=== PATIENT | female | born 1950 | race Caucasian/White ===

== ENCOUNTER 2021-09-18 10:38 | Inpatient (IN) ==
[2021-09-18] MEDS ORDERED: IOPAMIDOL 100 ML BOTTLE IV ONE (10:39)
--- NOTE | 2021-09-18 10:49 | Emergency Department Note ---
HPI General Chief complaint: Altered Mental Status Stated complaint: Stroke symptoms Time Seen by Provider: 09/18/21 10:49 Source: patient, family and EMS Mode of arrival: EMS Limitations: altered mental status History of Present Illness HPI Narrative: 71-year-old female with no past medical history presenting with altered mental status. Caregiver went over today to help the patient take a bath and found her to be confused, incoherent, and with slurred speech so EMS was called. Last seen normal was yesterday around 3 PM when the caregiver stopped in to see her. Patient lives at home with her but caregiver comes by a few times weekly. Patient reportedly is bedbound and needs assistance for most ADLs. Caregiver is concerned that her is not able to take care of her. There is also concern that patient has been drinking alcohol. Patient reportedly has been more confused and not herself over the last week. Patient reportedly has had some falls over the last month resulting in a right patellar fracture and dislocation, left shoulder rotator cuff injury, and right rotator cuff injury. Patient is a poor historian and is alert and oriented x2. Patient endorses pain in her shoulders and her right knee. She is unable to tell me if she has had any recent falls. Not on anticoagulation. Patient denies chest pain or abdominal pain. Patient reportedly has decubitus ulcers as well. Related Data Allergies Allergy/AdvReac Type Severity Reaction Status Date / Time No Known Drug Allergies Allergy Verified 09/18/21 10:40 Review of Systems ROS ROS Narrative: Narrative: Limitations: ROS unobtainable due to patients medical condition [facility] Narrative Patient History Narrative: Narrative: Medical/Surgical/Family History All Active Problems (Updated 09/18/21 @ 14:09 by Jeffrey Huddleston MD) Alcoholic intoxication (Acute) Urinary tract infection (Acute) Decubitus ulcer (Acute) Social History Smoking Status: Never smoker Exam Narrative Narrative: Narrative: General Limitations: altered mental status General appearance: Present alert and other (Appears intoxicated with mild dysarthria) Head Head: Present atraumatic and normocephalic Eye Eye: Present normal appearance, PERRL and EOMI; Absent scleral icterus, conjunctival injection or nystagmus ENT ENT: Present normal oropharynx and mucous membranes moist Neck Neck: Present normal inspection, full ROM and trachea midline; Absent meningismus or lymphadenopathy Chest Chest: Present symmetric chest wall rise Respiratory Respiratory: Present normal lung sounds bilaterally; Absent respiratory distress, wheezes, stridor, accessory muscle use or prolonged expiratory phase Cardiovascular Cardiovascular: Present regular rate and normal rhythm; Absent systolic murmur or diastolic murmur Adbominal Abdominal: Present soft; Absent distention, tenderness, guarding, rebound, rigidity, organomegaly or mass Extremities Extremities: Present normal inspection; Absent pretibial edema Expanded Upper Extremity Shoulder: Present other (Limited range of motion and tenderness over the right and left shoulders.) Vascular: Normal capillary refill and radial pulse Back Back: Present other (Multiple stage II decubitus ulcers present without purulent drainage or underlying abscess) Neurological Neurological: Present alert, CN II-XII intact and other (Oriented x2); Absent oriented X3 Expanded Neurological Patient oriented to: Present person and place Speech: Present slurred and dysarthria; Absent expressive aphasia CRANIAL NERVES: EOM function (II, III, IV, ): Normal, facial sensation (V): Normal, facial palsy (VII): Normal, gag reflex (IX): Normal, spinal accessory function (XI): Normal and tongue deviation (XII): Normal CEREBELLAR FUNCTION: finger to nose: Normal CEREBELLAR FUNCTION: other (Unable to ambulate) Motor strength - LUE: 5/5 Motor strength - RUE: 4/5 Motor strength - LLE: 5/5 Motor strength - RLE: 4/5 UPPER MOTOR NEURON EXAM: blessing neglect: Normal, pronator drift: Normal and sensory extinction: Normal SENSORY EXAM UPPER EXTREMITY: Normal: light touch SENSORY EXAM LOWER EXTREMITY: Normal: light touch Coma Scale Eye Opening: Spontaneous Coma Scale Motor Response: Obeys Commands Coma Scale Verbal Response: Confused Coma Scale Total: 14 Psychiatric Psychiatric: Present other (Mildly confused and occasionally making inappropriate comments) Skin Skin: Present warm (WNL) and dry Course Consultations Consultation #1: Dr. Nova, telestroke neurologist Time: 11:20 Consultation #2: Dr. Duffy, hospitalist Time: 16:15 Vital Signs Vital signs: Vital Signs Temperature 97.7 F 09/18/21 10:40 Pulse Rate 111 H 09/18/21 10:40 Respiratory Rate 18 09/18/21 10:40 Blood Pressure 129/69 09/18/21 10:40 Pulse Oximetry (%) 97 09/18/21 10:40 Temperature 97.7 F 09/18/21 10:40 Pulse Rate 113 H 09/18/21 16:01 Respiratory Rate 16 09/18/21 16:01 Blood Pressure 102/63 09/18/21 16:01 Pulse Oximetry (%) 95 09/18/21 16:01 [facility] MDM Narrative Medical decision making narrative: 71-year-old female presenting with altered mental status. She is mildly tachycardic but vital signs are otherwise normal. Her NIH stroke scale is 6 given her mild weakness of the right arm, right leg, dysarthria, and confusion. Her right arm and leg weakness however may be secondary to her prior injuries that limit her strength and range of motion. There is concern for other etiologies besides acute CVA including intoxication or infection. CT brain without contrast shows no acute findings. EKG with no ischemic changes. I spoke with Dr. Nova, telestroke neurologist, who will review her CTA findings. She is outside the window for thrombolytics as her last known normal was 3 PM yesterday. Will obtain labs, further imaging, UA, urine drug screen, and reevaluate. CTA of the head and neck show no acute occlusions or stenosis. Chest x-ray is normal. Labs and UA are pending. Labs notable for an elevated lactic acid to 2.9 and an alcohol level of 417. UA is consistent with UTI. Normal saline bolus and IV Rocephin ordered. Blood cultures ordered as well. Plan to admit for UTI and intoxication. Patient discussed with Dr. Duffy who will admit to the hospital. Lab Data Lab results reviewed: Yes I reviewed the patient's lab results. Result diagrams: 09/18/21 11:15 09/18/21 11:15 Labs: Lab Results 09/18/21 09/18/21 09/18/21 Range/Units 11:15 11:15 11:15 WBC 10.7 (4.5-11.0) K/mcL RBC 4.17 (3.59-5.38) M/mcL Hgb 13.2 (11.2-15.7) g/dL Hct 40.3 (34.1-44.9) % MCV 96.6 (80.0-100.0) fL MCH 31.7 (26.0-34.0) pg MCHC 32.8 (31.0-36.0) g/dL RDW 13.5 (11.5-14.5) % Plt Count 373 (140-440) K/mcL MPV 10.1 (7.4-10.4) fL Neut % (Auto) 61.6 (38.0-78.0) % Lymph % (Auto) 29.7 (15.5-49.0) % [place] % (Auto) 5.8 (1.0-12.0) % Eos % (Auto) 2.1 (0.0-7.0) % Baso % (Auto) 0.8 (0.0-2.0) % Lymph # (Auto) 3.17 (1.50-4.80) K/mcL [place] # (Auto) 0.62 (0.10-0.90) K/mcL Eos # (Auto) 0.22 (0.00-0.70) K/mcL Baso # (Auto) 0.09 (0.00-0.30) K/mcL Absolute Neutrophils 6.56 (1.80-8.00) K/mcL POC PT 13.0 (11.9-14.5) sec PT TNP POC INR 1.1 (0.8-1.2) INR TNP APTT TNP VBG Lactic Acid (0.5-2.0) mmol/L Sodium 137 (133-145) mmol/L Potassium 4.2 (3.3-5.1) mmol/L Chloride 101 (96-108) mmol/L Carbon Dioxide 17 L (22-30) mmol/L Anion Gap 19.0 H (8.0-16.0) BUN 25 H (8-23) mg/dL Creatinine 0.5 L (0.6-1.1) mg/dL POC Creatinine 0.8 (0.6-1.2) mg/dL GFR Calculation 98 Glucose 103 (70-105) mg/dL Calcium 8.8 (8.6-10.4) mg/dL Total Bilirubin 0.3 (0.1-1.0) mg/dL AST 35 H (<32) U/L ALT 21 (<40) U/L Alkaline Phosphatase 81 (39-117) U/L Troponin T (<0.03) ng/mL Total Protein 6.7 (5.9-8.4) gm/dL Albumin 3.7 (3.2-5.2) gm/dL Globulin 3.0 (2.2-3.7) gm/dL Albumin/Globulin Ratio 1.2 (1.0-2.3) Urine Color Urine Appearance (Clear) Urine pH (5.0-9.0) Ur Specific [place] (1.000-1.035) Urine Protein (Negative) mg/dL Urine Glucose (UA) (Negative) mg/dL Urine Ketones (Negative) mg/dL Urine Occult Blood (Negative) torrey/mcL Urine Nitrate (Negative) Urine Bilirubin (Negative) mg/dL Urine Urobilinogen mg/dL Ur Leukocyte Esterase (Negative) /uL Urine RBC (0-3) /hpf Urine WBC (0-4) /hpf Ur Squamous Epith Cells (0-4) /hpf Amorphous Crystals (None) /hpf Urine Bacteria (0) /hpf Ur Culture Indicated? Urine Opiates Screen Ur Opiates Confirm Ur Oxycodone Screen Urine Methadone Screen Ur Methadone Confirm Ur Barbiturates Screen Ur Barbiturate Confirm Ur Phencyclidine Scrn Urine PCP Confirm Ur Amphetamines Screen U Amphetamines Confirm U Benzodiazepines Scrn U Benzodiazepine Confm Urine Cocaine Screen Urine Cocaine Confirm U Cannabinoids Confirm U Marijuana (THC) Screen Ethyl Alcohol (<0.010) gm/dL 09/18/21 09/18/21 09/18/21 Range/Units 11:15 11:40 11:40 WBC (4.5-11.0) K/mcL RBC (3.59-5.38) M/mcL Hgb (11.2-15.7) g/dL Hct (34.1-44.9) % MCV (80.0-100.0) fL MCH (26.0-34.0) pg MCHC (31.0-36.0) g/dL RDW (11.5-14.5) % Plt Count (140-440) K/mcL MPV (7.4-10.4) fL Neut % (Auto) (38.0-78.0) % Lymph % (Auto) (15.5-49.0) % [place] % (Auto) (1.0-12.0) % Eos % (Auto) (0.0-7.0) % Baso % (Auto) (0.0-2.0) % Lymph # (Auto) (1.50-4.80) K/mcL [place] # (Auto) (0.10-0.90) K/mcL Eos # (Auto) (0.00-0.70) K/mcL Baso # (Auto) (0.00-0.30) K/mcL Absolute Neutrophils (1.80-8.00) K/mcL POC PT (11.9-14.5) sec PT POC INR (0.8-1.2) INR APTT VBG Lactic Acid 2.9 H (0.5-2.0) mmol/L Sodium (133-145) mmol/L Potassium (3.3-5.1) mmol/L Chloride (96-108) mmol/L Carbon Dioxide (22-30) mmol/L Anion Gap (8.0-16.0) BUN (8-23) mg/dL Creatinine (0.6-1.1) mg/dL POC Creatinine (0.6-1.2) mg/dL GFR Calculation Glucose (70-105) mg/dL Calcium (8.6-10.4) mg/dL Total Bilirubin (0.1-1.0) mg/dL AST (<32) U/L ALT (<40) U/L Alkaline Phosphatase (39-117) U/L Troponin T < 0.01 (<0.03) ng/mL Total Protein (5.9-8.4) gm/dL Albumin (3.2-5.2) gm/dL Globulin (2.2-3.7) gm/dL Albumin/Globulin Ratio (1.0-2.3) Urine Color Urine Appearance (Clear) Urine pH (5.0-9.0) Ur Specific [place] (1.000-1.035) Urine Protein (Negative) mg/dL Urine Glucose (UA) (Negative) mg/dL Urine Ketones (Negative) mg/dL Urine Occult Blood (Negative) torrey/mcL Urine Nitrate (Negative) Urine Bilirubin (Negative) mg/dL Urine Urobilinogen mg/dL Ur Leukocyte Esterase (Negative) /uL Urine RBC (0-3) /hpf Urine WBC (0-4) /hpf Ur Squamous Epith Cells (0-4) /hpf Amorphous Crystals (None) /hpf Urine Bacteria (0) /hpf Ur Culture Indicated? Urine Opiates Screen Ur Opiates Confirm Ur Oxycodone Screen Urine Methadone Screen Ur Methadone Confirm Ur Barbiturates Screen Ur Barbiturate Confirm Ur Phencyclidine Scrn Urine PCP Confirm Ur Amphetamines Screen U Amphetamines Confirm U Benzodiazepines Scrn U Benzodiazepine Confm Urine Cocaine Screen Urine Cocaine Confirm U Cannabinoids Confirm U Marijuana (THC) Screen Ethyl Alcohol 0.417 H (<0.010) gm/dL 09/18/21 09/18/21 Range/Units 11:51 11:51 WBC (4.5-11.0) K/mcL RBC (3.59-5.38) M/mcL Hgb (11.2-15.7) g/dL Hct (34.1-44.9) % MCV (80.0-100.0) fL MCH (26.0-34.0) pg MCHC (31.0-36.0) g/dL RDW (11.5-14.5) % Plt Count (140-440) K/mcL MPV (7.4-10.4) fL Neut % (Auto) (38.0-78.0) % Lymph % (Auto) (15.5-49.0) % [place] % (Auto) (1.0-12.0) % Eos % (Auto) (0.0-7.0) % Baso % (Auto) (0.0-2.0) % Lymph # (Auto) (1.50-4.80) K/mcL [place] # (Auto) (0.10-0.90) K/mcL Eos # (Auto) (0.00-0.70) K/mcL Baso # (Auto) (0.00-0.30) K/mcL Absolute Neutrophils (1.80-8.00) K/mcL POC PT (11.9-14.5) sec PT POC INR (0.8-1.2) INR APTT VBG Lactic Acid (0.5-2.0) mmol/L Sodium (133-145) mmol/L Potassium (3.3-5.1) mmol/L Chloride (96-108) mmol/L Carbon Dioxide (22-30) mmol/L Anion Gap (8.0-16.0) BUN (8-23) mg/dL Creatinine (0.6-1.1) mg/dL POC Creatinine (0.6-1.2) mg/dL GFR Calculation Glucose (70-105) mg/dL Calcium (8.6-10.4) mg/dL Total Bilirubin (0.1-1.0) mg/dL AST (<32) U/L ALT (<40) U/L Alkaline Phosphatase (39-117) U/L Troponin T (<0.03) ng/mL Total Protein (5.9-8.4) gm/dL Albumin (3.2-5.2) gm/dL Globulin (2.2-3.7) gm/dL Albumin/Globulin Ratio (1.0-2.3) Urine Color Yellow Urine Appearance Turbid A (Clear) Urine pH >= 9.0 (5.0-9.0) Ur Specific [place] 1.015 (1.000-1.035) Urine Protein >=300 mg/dl A (Negative) mg/dL Urine Glucose (UA) Negative (Negative) mg/dL Urine Ketones Negative (Negative) mg/dL Urine Occult Blood Large A (Negative) torrey/mcL Urine Nitrate Negative (Negative) Urine Bilirubin Negative (Negative) mg/dL Urine Urobilinogen Normal mg/dL Ur Leukocyte Esterase Large A (Negative) /uL Urine RBC 74 H (0-3) /hpf Urine WBC 42 H (0-4) /hpf Ur Squamous Epith Cells < 1 (0-4) /hpf Amorphous Crystals Few A (None) /hpf Urine Bacteria None (0) /hpf Ur Culture Indicated? yes Urine Opiates Screen None detected Ur Opiates Confirm TNP Ur Oxycodone Screen None detected Urine Methadone Screen None detected Ur Methadone Confirm TNP Ur Barbiturates Screen None detected Ur Barbiturate Confirm TNP Ur Phencyclidine Scrn None detected Urine PCP Confirm TNP Ur Amphetamines Screen None detected U Amphetamines Confirm TNP U Benzodiazepines Scrn None detected U Benzodiazepine Confm TNP Urine Cocaine Screen None detected Urine Cocaine Confirm TNP U Cannabinoids Confirm TNP U Marijuana (THC) Screen None detected Ethyl Alcohol (<0.010) gm/dL ED POC Tests ED POC Tests: CONSTANTIN - SARS Antigen Negative Radiology Data Radiology results reviewed: Yes I reviewed the patient's radiology results. Radiology results narrative: Ordering Physician:Jeffrey Huddleston M.D. Date of Service:09/18/21 Procedure(s):CT head/brain wo con CLINICAL INFORMATION: Code stroke COMPARISON: None. TECHNIQUE: 2.5 mm helical slices were obtained in the skull base to vertex. Following reconstruction, axial reformatted images were reviewed at bone and parenchymal windows. The exam was performed using radiation dose optimization techniques including, but not limited to, automated exposure control, adjustment of the mA and/or kV according to patient size and use of iterative reconstruction technique. FINDINGS: The ventricles, sulci, fissures, and cisterns are symmetrically enlarged compatible with moderate age-related atrophy. No extra-axial fluid collections are identified. Mild patchy chronic ischemic changes, in the deep cerebral white matter, are expected for age. There is no hemorrhage, mass effect, or edema. Bone windows show no osseous abnormality. IMPRESSION: Moderate atrophy and chronic ischemic changes in the deep cerebral white matter-expected for age. No acute findings Interpreted and Authenticated by: Horacio Rushing 09/18/21 Ordering Physician:Jeffrey Huddleston M.D. Date of Service:09/18/21 Procedure(s):CT angio head CLINICAL INFORMATION: Code stroke COMPARISON: None. TECHNIQUE: 80 cc of Isovue-370 were injected intravenously , and using SmartPrep to maximize cerebral arterial opacification, 0.625 mm helical slices were obtained from the skull base through the cerebral vertex. Following reconstruction , sagittal, coronal and axial reformatted images were processed and reviewed at multiple windows and levels. 3D volume rendered and MIP images were acquired at a independent workstation. The exam was performed using radiation dose optimization techniques including, but not limited to, automated exposure control, adjustment of the mA and/or kV according to patient size and use of iterative reconstruction technique. FINDINGS: The intracranial internal carotid, vertebral, basilar, anterior, middle and posterior cerebral arteries and their branches are well-opacified and normal in contour and caliber without significant disc or occlusion. There is a small AVM in the perifalcine left parietal lobe near vertex. Superficial/deep cerebral veins and deep venous sinuses are widely patent IMPRESSION: Cerebral arteries are widely patent no evidence of significant stenosis or occlusion. 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 There is no hemorrhage or other complication related to the AVM. Interpreted and Authenticated by: Horacio Rushing 09/18/21 Ordering Physician:Jeffrey Huddleston M.D. Date of Service:09/18/21 Procedure(s):CT angio neck CLINICAL INFORMATION: Code stroke COMPARISON: None. TECHNIQUE: 80 cc of Isovue-300 were injected intravenously followed by 40 cc of normal saline flush. Using SmartPrep, 0.625 helical slices were obtained from the thoracic aortic arch through the [place] of [place]. Following reconstruction, 2.5 mm sagittal, coronal and axial reformatted images were processed. MIPS , 3-D volume rendering and CPR images were also constructed. The exam was performed using radiation dose optimization techniques including, but not limited to, automated exposure control, adjustment of the mA and/or kV according to patient size and use of iterative reconstruction technique. FINDINGS: The thoracic aortic arch is normal diameter with minimal intimal thickening and conventional aortic branching. The brachiocephalic, both subclavian, both common, internal and external carotid and both vertebral arteries are widely patent without significant abnormality. No soft tissue abnormality. IMPRESSION: Normal exam At C4-5 and C5-6 broad disc protrusions result in moderate central canal bilateral IV foraminal narrowing impinging the exiting C5 and C6 nerve roots. Interpreted and Authenticated by: Horacio Rushing 09/18/21 Ordering Physician:Jeffrey Huddleston M.D. Date of Service:09/18/21 Procedure(s):XR chest 1V portable CLINICAL INFORMATION: Code stroke COMPARISON: None. TECHNIQUE: Portable FINDINGS: The heart size, mediastinum and pulmonary vessels are unremarkable. The lungs are clear. There are no effusions. The bones and soft tissues are within normal limits. IMPRESSION: Normal chest. Interpreted and Authenticated by: Horacio Rushing 09/18/21 EKG Data EKG #1: EKG attestation: Yes I reviewed and interpreted this EKG. and Yes There are no EKG findings of acute coronary syndrome EKG results narrative: Sinus tachycardia at [address] elevation or depression. Interpretation: no acute changes Discharge Plan Patient/Caregiver Discharge Instructions Pt seen by YARROW GATHERER/PA only: No Clinical Impression: Alcoholic intoxication, Urinary tract infection, Decubitus ulcer Patient Disposition: Xfer As Inpt ([facility]) Follow up with: Reece Galvez DO [Primary Care Provider] -
--- NOTE | 2021-09-18 11:04 | Cat Scan Report ---
CLINICAL INFORMATION: Code stroke COMPARISON: None. TECHNIQUE: 2.5 mm helical slices were obtained in the skull base to vertex. Following reconstruction, axial reformatted images were reviewed at bone and parenchymal windows. The exam was performed using radiation dose optimization techniques including, but not limited to, automated exposure control, adjustment of the mA and/or kV according to patient size and use of iterative reconstruction technique. FINDINGS: The ventricles, sulci, fissures, and cisterns are symmetrically enlarged compatible with moderate age-related atrophy. No extra-axial fluid collections are identified. Mild patchy chronic ischemic changes, in the deep cerebral white matter, are expected for age. There is no hemorrhage, mass effect, or edema. Bone windows show no osseous abnormality. IMPRESSION: Moderate atrophy and chronic ischemic changes in the deep cerebral white matter-expected for age. No acute findings Interpreted and Authenticated by: Horacio Rushing 09/18/21
[2021-09-18 11:22] LABS: POC Creatinine 0.8 mg/dL (0.6-1.2)
[2021-09-18 11:23] LABS: POC INR 1.1 (0.8-1.2)
--- NOTE | 2021-09-18 11:44 | EKG ---
[facility] Test Date: 2021-09-18 Pat Name: Philly Magallanes Department: ED Room: Gender: Female [employer] Supervisor: NICOLAS : 1950 Requested By: Jeffrey Huddleston Order Number: [id number] Reading MD: Rah Leong D.O. Measurements Intervals [place] Rate: 107 P: -41 FL: 129 QRS: 55 QRSD: 81 T: 59 QT: 322 QTc: 430 Interpretive Statements SINUS OR ECTOPIC ATRIAL TACHYCARDIA Low voltage, precordial leads Electronically Signed On 09-18-2021 11:44:24 PST by Rah Leong D.O. /store/M0/[id number]
[2021-09-18 11:55] LABS: Basophils # (Auto) 0.09 K/mcL (0.00-0.30); Basophils % (Auto) 0.8 % (0.0-2.0); Eosinophils # (Auto) 0.22 K/mcL (0.00-0.70); Eosinophils % (Auto) 2.1 % (0.0-7.0); Hematocrit 40.3 % (34.1-44.9); Hemoglobin 13.2 g/dL (11.2-15.7); Lymphocytes # (Auto) 3.17 K/mcL (1.50-4.80); Lymphocytes % (Auto) 29.7 % (15.5-49.0); Mean Cell Volume 96.6 fL (80.0-100.0); Mean Corpuscular HGB Conc 32.8 g/dL (31.0-36.0); Mean Platelet Volume 10.1 fL (7.4-10.4); Monocytes # (Auto) 0.62 K/mcL (0.10-0.90); Monocytes % (Auto) 5.8 % (1.0-12.0); Neutrophils % (Auto) 61.6 % (38.0-78.0); Platelet Count 373 K/mcL (140-440); RBC 4.17 M/mcL (3.59-5.38); Red Cell Distribution Width 13.5 % (11.5-14.5); WBC 10.7 K/mcL (4.5-11.0)
--- NOTE | 2021-09-18 12:03 | Cat Scan Report ---
CLINICAL INFORMATION: Code stroke COMPARISON: None. TECHNIQUE: 80 cc of Isovue-370 were injected intravenously , and using SmartPrep to maximize cerebral arterial opacification, 0.625 mm helical slices were obtained from the skull base through the cerebral vertex. Following reconstruction , sagittal, coronal and axial reformatted images were processed and reviewed at multiple windows and levels. 3D volume rendered and MIP images were acquired at a independent workstation. The exam was performed using radiation dose optimization techniques including, but not limited to, automated exposure control, adjustment of the mA and/or kV according to patient size and use of iterative reconstruction technique. FINDINGS: The intracranial internal carotid, vertebral, basilar, anterior, middle and posterior cerebral arteries and their branches are well-opacified and normal in contour and caliber without significant disc or occlusion. There is a small AVM in the perifalcine left parietal lobe near vertex. Superficial/deep cerebral veins and deep venous sinuses are widely patent IMPRESSION: Cerebral arteries are widely patent no evidence of significant stenosis or occlusion. 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 There is no hemorrhage or other complication related to the AVM. Interpreted and Authenticated by: Horacio Rushing 09/18/21
--- NOTE | 2021-09-18 12:08 | Cat Scan Report ---
CLINICAL INFORMATION: Code stroke COMPARISON: None. TECHNIQUE: 80 cc of Isovue-300 were injected intravenously followed by 40 cc of normal saline flush. Using SmartPrep, 0.625 helical slices were obtained from the thoracic aortic arch through the [place] of [place]. Following reconstruction, 2.5 mm sagittal, coronal and axial reformatted images were processed. MIPS , 3-D volume rendering and CPR images were also constructed. The exam was performed using radiation dose optimization techniques including, but not limited to, automated exposure control, adjustment of the mA and/or kV according to patient size and use of iterative reconstruction technique. FINDINGS: The thoracic aortic arch is normal diameter with minimal intimal thickening and conventional aortic branching. The brachiocephalic, both subclavian, both common, internal and external carotid and both vertebral arteries are widely patent without significant abnormality. No soft tissue abnormality. IMPRESSION: Normal exam At C4-5 and C5-6 broad disc protrusions result in moderate central canal bilateral IV foraminal narrowing impinging the exiting C5 and C6 nerve roots. Interpreted and Authenticated by: Horacio Rushing 09/18/21
--- NOTE | 2021-09-18 12:11 | XRay Report ---
CLINICAL INFORMATION: Code stroke COMPARISON: None. TECHNIQUE: Portable FINDINGS: The heart size, mediastinum and pulmonary vessels are unremarkable. The lungs are clear. There are no effusions. The bones and soft tissues are within normal limits. IMPRESSION: Normal chest. Interpreted and Authenticated by: Horacio Rushing 09/18/21
[2021-09-18 12:21] LABS: ALT/SGPT 21 U/L (<40); AST/SGOT 35 U/L (<32); Albumin 3.7 gm/dL (3.2-5.2); Albumin/Globulin Ratio 1.2 (1.0-2.3); Alkaline Phosphatase 81 U/L (39-117); Bilirubin,Total 0.3 mg/dL (0.1-1.0); Blood Urea Nitrogen 25 mg/dL (8-23); Calcium 8.8 mg/dL (8.6-10.4); Carbon Dioxide 17 mmol/L (22-30); Chloride 101 mmol/L (96-108); Glomerular Filtration Rate 98; Glucose 103 mg/dL (70-105)
[2021-09-18 12:52] LABS: Alcohol,Blood 0.417 gm/dL (<0.010)
[2021-09-18 13:41] LABS: Appearance,Urine Turbid (Clear); Bilirubin,Urine Negative (Negative); Color,Urine Yellow; Culture Indicated,Urine yes; Glucose,Urine (UA) Negative (Negative); Ketones,Urine Negative (Negative); Leukocyte Esterase,Urine Large /uL (Negative); Nitrate,Urine Negative (Negative); PH,Urine >= 9.0 (5.0-9.0); Protein,Urine >=300 mg/dL mg/dL (Negative); Specific Gravity,Urine 1.015 (1.000-1.035); Urine Amorphous Crystals FEW /hpf; Urine Blood Large ery/mcL (Negative); Urine RBC 74 /hpf (0-3); Urine Squamous Epithelial Cell < 1 /hpf (0-4); Urine WBC 42 /hpf (0-4); Urobilinogen,Urine Normal
[2021-09-18] MEDS ORDERED: 0.9 % SODIUM CHLORIDE 1,000 ML IV ONE ×2 (13:54→19:09)
[2021-09-18] MEDS ORDERED: cefTRIAXone 1 GM VIAL IV ONE (14:00)
[2021-09-18 14:39] LABS: Amphetamine Screen,Urine None detected; Barbiturate Screen,Urine None detected; Benzodiazepines Screen,Urine None detected; Cannabinoid Screen,Urine None detected; Cocaine Screen,Urine None detected; Opiate Screen,Urine None detected; Oxycodone, Urine Screen None detected; Phencyclidine Screen,Urine None detected
--- NOTE | 2021-09-18 19:06 | Emergency Department Note ---
ED Note Addendum Note Addendum: Hospitalist service unable to admit the patient this evening. Patient has received her IV antibiotics for her urinary tract infection as well as a liter of normal saline. We will continue to manage the patient in the emerge department until the time of disposition. Patient complains of anxiety at this time and requesting anxiety medication. Patient has longstanding depression and anxiety disorder. Patient is also an alcoholic so we will address that concern as well. Patient was restless and agitated up until about 2330. She received 3 mg of Ativan over the 3 hours and went to sleep by about midnight. She received the Librium per the order and patient has slept the night reasonably well. At 0700, the patient was resting comfortably with a heart rate of 105. I signed the patient off to Dr. Jeffrey Huddleston my colleague who will continue the management and disposition of this patient.
[2021-09-18] MEDS ORDERED: MULTIVIT,THER IRON,CA,FA & MIN 1 TABLET PO ONE (19:09)
[2021-09-18] MEDS: LORazepam 2 MG/ML VIAL IV PRN ×3 (19:41→22:49)
[2021-09-18] MEDS ORDERED: chlordiazePOXIDE 25 MG CAPSULE PO ONE (19:59)
[2021-09-18] MEDS: chlordiazePOXIDE 25 MG CAPSULE PO PRN (20:09)
[2021-09-19] MEDS: LORazepam 2 MG/ML VIAL IV PRN ×3 (00:53→13:27)
--- NOTE | 2021-09-19 08:04 | Emergency Department Note ---
Course Consultations Consultation #1: Dr. Hernandez, hospitalist at [facility] Time: 14:10 Consultation #2: Dr. Batista hospitalist Time: 18:45 Vital Signs Vital signs: Vital Signs Temperature 97.7 F 09/18/21 10:40 Pulse Rate 111 H 09/18/21 10:40 Respiratory Rate 18 09/18/21 10:40 Blood Pressure 129/69 09/18/21 10:40 Pulse Oximetry (%) 97 09/18/21 10:40 Temperature 97.7 F 09/18/21 10:40 Pulse Rate 103 H 09/19/21 15:00 Respiratory Rate 14 09/19/21 18:31 Blood Pressure 147/73 09/19/21 18:31 Pulse Oximetry (%) 91 09/19/21 15:00 MDM MDM Narrative Medical decision making narrative: Patient received in signout from Dr. Blood. Urosepsis and alcohol intoxication. She has received a normal saline bolus, IV Rocephin, and blood cultures were o btained. Overnight she was restless and agitated. She was given 3 mg of Ativan and Librium with improvement. Vital signs are stable. She is awaiting admission for urosepsis, alcohol intoxication/withdrawal, and inability to care for herself at home. 0800: Given she has been in the ED since yesterday, will repeat lab tests this morning and continue to monitor. We are awaiting availability for hospitalist admission to the hospital. 1035: I spoke with patient's sister and updated her with plan of care. 1135: Repeat labs are stable, alcohol level is negative. Repeat dose of Rocephin 1 g IV ordered. Still no beds available at our facility for admission. Will search for other appropriate facilities with bed availability. 1410: I spoke with Dr. Hernandez, hospitalist at [facility] in [facility], who is willing to accept the patient. Patient is stable, no signs of alcohol withdrawal at this time. I updated patient's sister with this information. 1500: I spoke with patient and her who are agreeable with transfer to [facility]. 1800: After locating an accepting hospital and bed for transfer, patient's family decided that they do not want her to be transferred to [facility]. Patient's family requested that she stay in the emergency room for another two days until a bed opens up at our hospital or a closer one. I had a long discussion with patient's family regarding that this is an inappropriate use of the emergency department, however they refused to have her transferred to the hospital where she was accepted. I offered to have case management speak with the family about potentially discharging the patient to a [facility] facility, however family did not want that done either because they believe she needs inpatient admission to qualify for [facility] facility placement. I had multiple lengthy discussions with patient and her family, including her sister over the phone. I explained multiple times that we currently do not have an inpatient bed available at this time. Patient has been in the emergency department for over 30 hours and has been managed by emergency department physicians and emergency nursing staff while we try to find an appropriate facility for her. Patient's family continues to be insistent that she can only be admitted at [facility] or [facility] and that she cannot be discharged home. I spoke with our nursing management team, case management, and for now we will c marielleinue to manage the patient in the emergency department until a bed possibly opens up at our facility, given that the family has refused transfer. Patient's home losartan ordered and 1 mg p.o. Ativan given to the patient for anxiety. Will continue to monitor. 1845: I discussed the patient with Dr. Batista, hospitalist, who will admit. Lab Data Lab results reviewed: Yes I reviewed the patient's lab results. Result diagrams: 09/19/21 08:42 09/19/21 08:42 Labs: Lab Results 09/18/21 09/18/21 09/18/21 Range/Units 11:15 11:15 11:15 WBC 10.7 (4.5-11.0) K/mcL RBC 4.17 (3.59-5.38) M/mcL Hgb 13.2 (11.2-15.7) g/dL Hct 40.3 (34.1-44.9) % MCV 96.6 (80.0-100.0) fL MCH 31.7 (26.0-34.0) pg MCHC 32.8 (31.0-36.0) g/dL RDW 13.5 (11.5-14.5) % Plt Count 373 (140-440) K/mcL MPV 10.1 (7.4-10.4) fL Neut % (Auto) 61.6 (38.0-78.0) % Lymph % (Auto) 29.7 (15.5-49.0) % Lewis % (Auto) 5.8 (1.0-12.0) % Eos % (Auto) 2.1 (0.0-7.0) % Baso % (Auto) 0.8 (0.0-2.0) % Lymph # (Auto) 3.17 (1.50-4.80) K/mcL Lewis # (Auto) 0.62 (0.10-0.90) K/mcL Eos # (Auto) 0.22 (0.00-0.70) K/mcL Baso # (Auto) 0.09 (0.00-0.30) K/mcL Absolute Neutrophils 6.56 (1.80-8.00) K/mcL POC PT 13.0 (11.9-14.5) sec PT TNP POC INR 1.1 (0.8-1.2) INR TNP APTT TNP VBG Lactic Acid (0.5-2.0) mmol/L Sodium 137 (133-145) mmol/L Potassium 4.2 (3.3-5.1) mmol/L Chloride 101 (96-108) mmol/L Carbon Dioxide 17 L (22-30) mmol/L Anion Gap 19.0 H (8.0-16.0) BUN 25 H (8-23) mg/dL Creatinine 0.5 L (0.6-1.1) mg/dL POC Creatinine 0.8 (0.6-1.2) mg/dL GFR Calculation 98 Glucose 103 (70-105) mg/dL Calcium 8.8 (8.6-10.4) mg/dL Total Bilirubin 0.3 (0.1-1.0) mg/dL AST 35 H (<32) U/L ALT 21 (<40) U/L Alkaline Phosphatase 81 (39-117) U/L Troponin T (<0.03) ng/mL Total Protein 6.7 (5.9-8.4) gm/dL Albumin 3.7 (3.2-5.2) gm/dL Globulin 3.0 (2.2-3.7) gm/dL Albumin/Globulin Ratio 1.2 (1.0-2.3) Urine Color Urine Appearance (Clear) Urine pH (5.0-9.0) Ur Specific [place] (1.000-1.035) Urine Protein (Negative) mg/dL Urine Glucose (UA) (Negative) mg/dL Urine Ketones (Negative) mg/dL Urine Occult Blood (Negative) torrey/mcL Urine Nitrate (Negative) Urine Bilirubin (Negative) mg/dL Urine Urobilinogen mg/dL Ur Leukocyte Esterase (Negative) /uL Urine RBC (0-3) /hpf Urine WBC (0-4) /hpf Ur Squamous Epith Cells (0-4) /hpf Amorphous Crystals (None) /hpf Urine Bacteria (0) /hpf Ur Culture Indicated? Urine Opiates Screen Ur Opiates Confirm Ur Oxycodone Screen Urine Methadone Screen Ur Methadone Confirm Ur Barbiturates Screen Ur Barbiturate Confirm Ur Phencyclidine Scrn Urine PCP Confirm Ur Amphetamines Screen U Amphetamines Confirm U Benzodiazepines Scrn U Benzodiazepine Confm Urine Cocaine Screen Urine Cocaine Confirm U Cannabinoids Confirm U Marijuana (THC) Screen Ethyl Alcohol (<0.010) gm/dL 09/18/21 09/18/21 09/18/21 Range/Units 11:15 11:40 11:40 WBC (4.5-11.0) K/mcL RBC (3.59-5.38) M/mcL Hgb (11.2-15.7) g/dL Hct (34.1-44.9) % MCV (80.0-100.0) fL MCH (26.0-34.0) pg MCHC (31.0-36.0) g/dL RDW (11.5-14.5) % Plt Count (140-440) K/mcL MPV (7.4-10.4) fL Neut % (Auto) (38.0-78.0) % Lymph % (Auto) (15.5-49.0) % Lewis % (Auto) (1.0-12.0) % Eos % (Auto) (0.0-7.0) % Baso % (Auto) (0.0-2.0) % Lymph # (Auto) (1.50-4.80) K/mcL Lewis # (Auto) (0.10-0.90) K/mcL Eos # (Auto) (0.00-0.70) K/mcL Baso # (Auto) (0.00-0.30) K/mcL Absolute Neutrophils (1.80-8.00) K/mcL POC PT (11.9-14.5) sec PT POC INR (0.8-1.2) INR APTT VBG Lactic Acid 2.9 H (0.5-2.0) mmol/L Sodium (133-145) mmol/L Potassium (3.3-5.1) mmol/L Chloride (96-108) mmol/L Carbon Dioxide (22-30) mmol/L Anion Gap (8.0-16.0) BUN (8-23) mg/dL Creatinine (0.6-1.1) mg/dL POC Creatinine (0.6-1.2) mg/dL GFR Calculation Glucose (70-105) mg/dL Calcium (8.6-10.4) mg/dL Total Bilirubin (0.1-1.0) mg/dL AST (<32) U/L ALT (<40) U/L Alkaline Phosphatase (39-117) U/L Troponin T < 0.01 (<0.03) ng/mL Total Protein (5.9-8.4) gm/dL Albumin (3.2-5.2) gm/dL Globulin (2.2-3.7) gm/dL Albumin/Globulin Ratio (1.0-2.3) Urine Color Urine Appearance (Clear) Urine pH (5.0-9.0) Ur Specific [place] (1.000-1.035) Urine Protein (Negative) mg/dL Urine Glucose (UA) (Negative) mg/dL Urine Ketones (Negative) mg/dL Urine Occult Blood (Negative) torrey/mcL Urine Nitrate (Negative) Urine Bilirubin (Negative) mg/dL Urine Urobilinogen mg/dL Ur Leukocyte Esterase (Negative) /uL Urine RBC (0-3) /hpf Urine WBC (0-4) /hpf Ur Squamous Epith Cells (0-4) /hpf Amorphous Crystals (None) /hpf Urine Bacteria (0) /hpf Ur Culture Indicated? Urine Opiates Screen Ur Opiates Confirm Ur Oxycodone Screen Urine Methadone Screen Ur Methadone Confirm Ur Barbiturates Screen Ur Barbiturate Confirm Ur Phencyclidine Scrn Urine PCP Confirm Ur Amphetamines Screen U Amphetamines Confirm U Benzodiazepines Scrn U Benzodiazepine Confm Urine Cocaine Screen Urine Cocaine Confirm U Cannabinoids Confirm U Marijuana (THC) Screen Ethyl Alcohol 0.417 H (<0.010) gm/dL 09/18/21 09/18/21 09/19/21 Range/Units 11:51 11:51 08:42 WBC 8.2 (4.5-11.0) K/mcL RBC 3.48 L (3.59-5.38) M/mcL Hgb 11.2 (11.2-15.7) g/dL Hct 34.1 (34.1-44.9) % MCV 98.0 (80.0-100.0) fL MCH 32.2 (26.0-34.0) pg MCHC 32.8 (31.0-36.0) g/dL RDW 13.5 (11.5-14.5) % Plt Count 237 (140-440) K/mcL MPV 10.5 H (7.4-10.4) fL Neut % (Auto) 75.7 (38.0-78.0) % Lymph % (Auto) 14.2 L (15.5-49.0) % Lewis % (Auto) 7.8 (1.0-12.0) % Eos % (Auto) 1.7 (0.0-7.0) % Baso % (Auto) 0.6 (0.0-2.0) % Lymph # (Auto) 1.17 L (1.50-4.80) K/mcL Lewis # (Auto) 0.64 (0.10-0.90) K/mcL Eos # (Auto) 0.14 (0.00-0.70) K/mcL Baso # (Auto) 0.05 (0.00-0.30) K/mcL Absolute Neutrophils 6.22 (1.80-8.00) K/mcL POC PT (11.9-14.5) sec PT POC INR (0.8-1.2) INR APTT VBG Lactic Acid (0.5-2.0) mmol/L Sodium (133-145) mmol/L Potassium (3.3-5.1) mmol/L Chloride (96-108) mmol/L Carbon Dioxide (22-30) mmol/L Anion Gap (8.0-16.0) BUN (8-23) mg/dL Creatinine (0.6-1.1) mg/dL POC Creatinine (0.6-1.2) mg/dL GFR Calculation Glucose (70-105) mg/dL Calcium (8.6-10.4) mg/dL Total Bilirubin (0.1-1.0) mg/dL AST (<32) U/L ALT (<40) U/L Alkaline Phosphatase (39-117) U/L Troponin T (<0.03) ng/mL Total Protein (5.9-8.4) gm/dL Albumin (3.2-5.2) gm/dL Globulin (2.2-3.7) gm/dL Albumin/Globulin Ratio (1.0-2.3) Urine Color Yellow Urine Appearance Turbid A (Clear) Urine pH >= 9.0 (5.0-9.0) Ur Specific [place] 1.015 (1.000-1.035) Urine Protein >=300 mg/dl A (Negative) mg/dL Urine Glucose (UA) Negative (Negative) mg/dL Urine Ketones Negative (Negative) mg/dL Urine Occult Blood Large A (Negative) torrey/mcL Urine Nitrate Negative (Negative) Urine Bilirubin Negative (Negative) mg/dL Urine Urobilinogen Normal mg/dL Ur Leukocyte Esterase Large A (Negative) /uL Urine RBC 74 H (0-3) /hpf Urine WBC 42 H (0-4) /hpf Ur Squamous Epith Cells < 1 (0-4) /hpf Amorphous Crystals Few A (None) /hpf Urine Bacteria None (0) /hpf Ur Culture Indicated? yes Urine Opiates Screen None detected Ur Opiates Confirm TNP Ur Oxycodone Screen None detected Urine Methadone Screen None detected Ur Methadone Confirm TNP Ur Barbiturates Screen None detected Ur Barbiturate Confirm TNP Ur Phencyclidine Scrn None detected Urine PCP Confirm TNP Ur Amphetamines Screen None detected U Amphetamines Confirm TNP U Benzodiazepines Scrn None detected U Benzodiazepine Confm TNP Urine Cocaine Screen None detected Urine Cocaine Confirm TNP U Cannabinoids Confirm TNP U Marijuana (THC) Screen None detected Ethyl Alcohol (<0.010) gm/dL 09/19/21 09/19/21 Range/Units 08:42 08:42 WBC (4.5-11.0) K/mcL RBC (3.59-5.38) M/mcL Hgb (11.2-15.7) g/dL Hct (34.1-44.9) % MCV (80.0-100.0) fL MCH (26.0-34.0) pg MCHC (31.0-36.0) g/dL RDW (11.5-14.5) % Plt Count (140-440) K/mcL MPV (7.4-10.4) fL Neut % (Auto) (38.0-78.0) % Lymph % (Auto) (15.5-49.0) % Lewis % (Auto) (1.0-12.0) % Eos % (Auto) (0.0-7.0) % Baso % (Auto) (0.0-2.0) % Lymph # (Auto) (1.50-4.80) K/mcL Lewis # (Auto) (0.10-0.90) K/mcL Eos # (Auto) (0.00-0.70) K/mcL Baso # (Auto) (0.00-0.30) K/mcL Absolute Neutrophils (1.80-8.00) K/mcL POC PT (11.9-14.5) sec PT POC INR (0.8-1.2) INR APTT VBG Lactic Acid (0.5-2.0) mmol/L Sodium 136 (133-145) mmol/L Potassium 3.8 (3.3-5.1) mmol/L Chloride 103 (96-108) mmol/L Carbon Dioxide 22 (22-30) mmol/L Anion Gap 11.0 (8.0-16.0) BUN 18 (8-23) mg/dL Creatinine 0.4 L (0.6-1.1) mg/dL POC Creatinine (0.6-1.2) mg/dL GFR Calculation 105 Glucose 111 H (70-105) mg/dL Calcium 8.2 L (8.6-10.4) mg/dL Total Bilirubin (0.1-1.0) mg/dL AST (<32) U/L ALT (<40) U/L Alkaline Phosphatase (39-117) U/L Troponin T (<0.03) ng/mL Total Protein (5.9-8.4) gm/dL Albumin (3.2-5.2) gm/dL Globulin (2.2-3.7) gm/dL Albumin/Globulin Ratio (1.0-2.3) Urine Color Urine Appearance (Clear) Urine pH (5.0-9.0) Ur Specific [place] (1.000-1.035) Urine Protein (Negative) mg/dL Urine Glucose (UA) (Negative) mg/dL Urine Ketones (Negative) mg/dL Urine Occult Blood (Negative) torrey/mcL Urine Nitrate (Negative) Urine Bilirubin (Negative) mg/dL Urine Urobilinogen mg/dL Ur Leukocyte Esterase (Negative) /uL Urine RBC (0-3) /hpf Urine WBC (0-4) /hpf Ur Squamous Epith Cells (0-4) /hpf Amorphous Crystals (None) /hpf Urine Bacteria (0) /hpf Ur Culture Indicated? Urine Opiates Screen Ur Opiates Confirm Ur Oxycodone Screen Urine Methadone Screen Ur Methadone Confirm Ur Barbiturates Screen Ur Barbiturate Confirm Ur Phencyclidine Scrn Urine PCP Confirm Ur Amphetamines Screen U Amphetamines Confirm U Benzodiazepines Scrn U Benzodiazepine Confm Urine Cocaine Screen Urine Cocaine Confirm U Cannabinoids Confirm U Marijuana (THC) Screen Ethyl Alcohol < 0.010 (<0.010) gm/dL ED POC Tests ED POC Tests: CONSTANTIN - SARS Antigen Negative Discharge Plan Patient/Caregiver Discharge Instructions Pt seen by SETTER OFF/PA only: No Clinical Impression: Alcoholic intoxication, Urinary tract infection, Decubitus ulcer Patient Disposition: Xfer As Inpt ([facility]) Condition: Fair Follow up with: Reece Galvez DO [Primary Care Provider] - Prescriptions: No Action tramadol 50 mg Tablet 50 mg PO TID PRN (Reason: Pain) 0RF levothyroxine [Synthroid] 100 mcg Tablet 100 mcg PO QDAY 0RF lorazepam [Ativan] 0.5 mg Tablet 0.5 mg PO QDAY PRN (Reason: Anxiety) 0RF pantoprazole [Protonix] 40 mg Tablet,Delayed Release (Dr/Ec) 40 mg PO QDAY 0RF zolpidem [Ambien] 5 mg Tablet 10 mg PO QHS PRN (Reason: Sleep) 0RF losartan 100 mg Tablet 100 mg PO QDAY 0RF
[2021-09-19 09:49] LABS: Basophils # (Auto) 0.05 K/mcL (0.00-0.30); Basophils % (Auto) 0.6 % (0.0-2.0); Eosinophils # (Auto) 0.14 K/mcL (0.00-0.70); Eosinophils % (Auto) 1.7 % (0.0-7.0); Hematocrit 34.1 % (34.1-44.9); Hemoglobin 11.2 g/dL (11.2-15.7); Lymphocytes # (Auto) 1.17 K/mcL (1.50-4.80); Lymphocytes % (Auto) 14.2 % (15.5-49.0); Mean Corpuscular HGB Conc 32.8 g/dL (31.0-36.0); Mean Platelet Volume 10.5 fL (7.4-10.4); Monocytes # (Auto) 0.64 K/mcL (0.10-0.90); Monocytes % (Auto) 7.8 % (1.0-12.0); Neutrophils % (Auto) 75.7 % (38.0-78.0); Platelet Count 237 K/mcL (140-440); RBC 3.48 M/mcL (3.59-5.38); Red Cell Distribution Width 13.5 % (11.5-14.5); WBC 8.2 K/mcL (4.5-11.0)
[2021-09-19 09:57] LABS: Blood Urea Nitrogen 18 mg/dL (8-23); Calcium 8.2 mg/dL (8.6-10.4); Carbon Dioxide 22 mmol/L (22-30); Chloride 103 mmol/L (96-108); Glomerular Filtration Rate 105; Glucose 111 mg/dL (70-105)
[2021-09-19 10:14] LABS: Alcohol, Blood < 10.0 mg/dL; Alcohol,Blood < 0.010 gm/dL (<0.010)
[2021-09-19] MEDS ORDERED: cefTRIAXone 1 GM VIAL IV ONE (11:18)
[2021-09-19] MEDS ORDERED: LORazepam 1 MG TABLET PO ONE (17:35)
[2021-09-19] MEDS ORDERED: LOSARTAN 50 MG TABLET PO ONE (17:56)
[2021-09-19] MEDS ORDERED: ONDANSETRON 4 MG/2 ML VIAL IV PRN (18:19)
[2021-09-19] MEDS ORDERED: LORazepam 0.5 MG TABLET PO PRN (19:06)
[2021-09-19] MEDS ORDERED: MINERAL OIL 1 DOSE ENEMA PR ONE (19:07)
--- NOTE | 2021-09-19 20:25 | Internal Med History&Physical ---
HPI History of Present Illness Patient information: Note initiated : 09/19/21 at 8:23 pm Service Date, if different from initiated Date: [] Patient: Philly Magallanes 71 y/o F admitted on 09/19/21 for Stroke symptoms. Chief Complaint: [] Chief complaint: Altered Mental status History of present illness: Ms. Magallanes is a 71 year old F With history of alcohol use, hypertension, anxiety, on chronic benzo therapy, presents to the emergency room yesterday for evaluation of altered mental status. The patient has been having recurrent falls, she had an MRI of bilateral shoulders done which shows complete tear bilateral rotator cuffs, she also has a patellar fracture that was diagnosed a approximately 10 days ago. The patient has been bedbound and it has been difficult for the patient to care for self. At this time it looks like the patient is living with her , with some support, and the caregiver walked in, the patient was confused, and therefore the patient was sent to the emergency room for further evaluation. The patient presented to the emergency room yesterday, initially there was a concern for CVA, head CT was negative, however on subsequent an evaluation it was determined that the patient probably was intoxicated, patient did have an elevated alcohol level of more than 400. The patient lab work showed mild leukocytosis and a UA suggestive of urinary tract infection. She also had elevated lactic acid. The patient was treated with IV fluids, started on CIWA protocol, and IV antibiotics. There was no bed available in the hospital in this facility or in the local [place], therefore an effort was made to transfer the patient to hospital nearby. The patient's family has refused the transfer. And therefore the patient stayed in the ED until a bed opened up here. On my evaluation patient's mental status had improved significantly, she is alert oriented x3, admits to some, constipation, denies any other acute complaint or concern. She has pain in her shoulders and the knee, which seems to be chronic. Given the fact that the patient is unable to care for self at home, and concern for alcohol withdrawal along with urinary tract infection patients will be admitted to the hospital for further management Constitutional Constitutional: Present frequent falls and weakness; Absent fever(s) EENT Eyes: Absent diplopia or photophobia Nose, mouth and throat: Absent epistaxis, lip swelling or throat swelling Cardiovascular Cardiovascular: Absent chest pain, chest pain with activity or dyspnea on exertion Respiratory Respiratory: Absent cough, hemoptysis or wheezing Gastrointestinal Gastrointestinal: Present constipation; Absent hematemesis, nausea or vomiting Genitourinary Genitourinary: Absent urinary frequency or urinary urgency Musculoskeletal Musculoskeletal: Present arthralgias Integumentary Integumentary: Present wounds; Absent bleeding lesions Neurological Neurological: Present as per HPI Psychiatric Psychiatric: Present anxiety Endocrine Endocrine: Absent palpitations, polydipsia or polyphagia Hematologic/Lymphatic Hematologic/Lymphatic: Absent easy bleeding, easy bruising or lymphadenopathy Allergic/Immunologic Allergic/Immunologic: Absent uticaria or wheezing PFSH PFSH All Active Problems Alcoholic intoxication (Acute) Urinary tract infection (Acute) Decubitus ulcer (Acute) MEDS/ALLERGIES Home Medications and Allergies Home Medications Medication Instructions Recorded Confirmed Type levothyroxine 100 mcg tablet 100 mcg PO QDAY 09/19/21 09/19/21 History (Synthroid) lorazepam 0.5 mg tablet (Ativan) 0.5 mg PO QDAY PRN 09/19/21 09/19/21 History losartan 100 mg tablet 100 mg PO QDAY 09/19/21 09/19/21 History pantoprazole 40 mg tablet,delayed 40 mg PO QDAY 09/19/21 09/19/21 History release (Protonix) tramadol 50 mg tablet 50 mg PO TID PRN 09/19/21 09/19/21 History zolpidem 5 mg tablet (Ambien) 10 mg PO QHS PRN 09/19/21 09/19/21 History Allergies Allergy/AdvReac Type Severity Reaction Status Date / Time No Known Drug Allergies Allergy Verified 09/18/21 10:40 EXAM Constitutional Vitals: Temp Pulse Resp BP Pulse Ox 97.7 F 103 H 20 147/73 91 09/18/21 10:40 09/19/21 15:00 09/19/21 19:57 09/19/21 18:31 09/19/21 15:00 General appearance: cooperative and no acute distress Head Head exam: Present atraumatic and normocephalic Expanded Head Exam Head exam: Absent Blanchard's sign or raccoon eyes Eye Eye exam: Present EOMI and normal appearance; Absent conjunctival injection ENT ENT exam: Present mucous membranes dry Expanded Neck Exam Neck exam: Absent anterior neck swelling or tracheal deviation Respiratory Respiratory exam: Present normal respiratory exam; Absent accessory muscle use, respiratory distress or wheezes Cardiovascular Cardiovascular exam: Present +S1, +S2 and tachycardia; Absent irregular rhythm GI/Abdominal GI/Abdominal exam: Present normal bowel sounds Rectal Rectal exam: Present deferred Extremities Exam Extremities exam: Present normal capillary refill and neurovascular intact Back Exam Back exam: Absent CVA tenderness (L) or CVA tenderness (R) Neurological Exam Neurological exam: Present alert, CN II-XII intact, motor sensory deficit and oriented X3 Psychiatric Psychiatric exam: Present normal affect; Absent agitated or manic Skin Additional comments: Ulceration on the left gluteal folds of the buttock DATA Data Completed and Pending Labs: Labs from last 24 hours 09/19/21 09/19/21 09/19/21 08:42 08:42 08:42 WBC 8.2 RBC 3.48 L Hgb 11.2 Hct 34.1 MCV 98.0 MCH 32.2 MCHC 32.8 RDW 13.5 Plt Count 237 MPV 10.5 H Neut % (Auto) 75.7 Lymph % (Auto) 14.2 L Garrett % (Auto) 7.8 Eos % (Auto) 1.7 Baso % (Auto) 0.6 Lymph # (Auto) 1.17 L Garrett # (Auto) 0.64 Eos # (Auto) 0.14 Baso # (Auto) 0.05 Absolute Neutrophils 6.22 Sodium 136 Potassium 3.8 Chloride 103 Carbon Dioxide 22 Anion Gap 11.0 BUN 18 Creatinine 0.4 L GFR Calculation 105 Glucose 111 H Calcium 8.2 L Ethyl Alcohol < 0.010 Preliminary micro results at discharge 09/18/21 14:20 Blood Culture - Preliminary Blood 09/18/21 14:14 Blood Culture - Preliminary Blood A/P Narrative A/P Narrative: Altered mental status Alcohol intoxication Metabolic Encephalopathy -suspect a combination of factors -clinically improving, head CT is neg, and recent mra is reassuring severe Sepsis (Present on admission) Urinary tract infection -follow cultures -IV fluids for now -clincally improving Decub ulceration -due to bed bound status -wound care consult when able Frequent falls -etiology? due to etoh? -will get OT/PT eval Bilateral shoulder rotator cuff injury -seems from previous falls Patella fracuture -Right knee patella fracture with dislocation -diagnosed on of this month -not sure if has had ortho evaluation, but based on fact has been mostly home, doubt it -will consult ortho, d/w Dr Fink -knee immobilizer -toe touch for weight bearing, DVT -lovenox Time Spent With Patient Time: Total time spent is greater than 50% in coordination of care (as documented) at patient's floor/unit and/or counseling patient: QUALITY Stroke Symptom Onset Unknown: No
[2021-09-19] MEDS: DEXTROSE 5%-LR W/20MEQ KCL 1,000 ML IV SCH (21:33)
[2021-09-19] MEDS: SENNOSIDES 1 TABLET PO SCH (21:42)
[2021-09-19] MEDS: 0.9 % SODIUM CHLORIDE 10 ML SYRINGE IV SCH (21:43)
[2021-09-19] MEDS: MULTIVIT,THER IRON,CA,FA & MIN 1 TABLET PO SCH (21:43)
[2021-09-19] MEDS: DOCUSATE SODIUM 100 MG CAPSULE PO SCH (21:43)
[2021-09-19] MEDS: THIAMINE 100 MG TABLET PO SCH (21:43)
[2021-09-20] MEDS: LORazepam 2 MG/ML VIAL IV PRN ×3 (00:23→17:16)
[2021-09-20] MEDS: chlordiazePOXIDE 25 MG CAPSULE PO PRN ×2 (01:28→20:52)
[2021-09-20] MEDS ORDERED: chlordiazePOXIDE 25 MG CAPSULE PO ONE (01:33)
[2021-09-20] MEDS: 0.9 % SODIUM CHLORIDE 10 ML SYRINGE IV SCH ×3 (05:01→20:51)
[2021-09-20 08:01] LABS: Basophils # (Auto) 0.04 K/mcL (0.00-0.30); Basophils % (Auto) 0.5 % (0.0-2.0); Eosinophils # (Auto) 0.32 K/mcL (0.00-0.70); Eosinophils % (Auto) 4.1 % (0.0-7.0); Hematocrit 34.9 % (34.1-44.9); Hemoglobin 11.3 g/dL (11.2-15.7); Lymphocytes # (Auto) 1.22 K/mcL (1.50-4.80); Lymphocytes % (Auto) 15.8 % (15.5-49.0); Mean Cell Volume 98.3 fL (80.0-100.0); Mean Corpuscular HGB Conc 32.4 g/dL (31.0-36.0); Mean Platelet Volume 10.8 fL (7.4-10.4); Monocytes # (Auto) 0.61 K/mcL (0.10-0.90); Monocytes % (Auto) 7.9 % (1.0-12.0); Neutrophils % (Auto) 71.7 % (38.0-78.0); Platelet Count 249 K/mcL (140-440); RBC 3.55 M/mcL (3.59-5.38); WBC 7.7 K/mcL (4.5-11.0)
[2021-09-20 08:14] LABS: ALT/SGPT 17 U/L (<40); AST/SGOT 26 U/L (<32); Albumin 3.4 gm/dL (3.2-5.2); Albumin/Globulin Ratio 1.4 (1.0-2.3); Alkaline Phosphatase 82 U/L (39-117); Bilirubin,Direct < 0.2 mg/dL (0-0.3); Bilirubin,Total 0.3 mg/dL (0.1-1.0); Blood Urea Nitrogen 10 mg/dL (8-23); Calcium 8.8 mg/dL (8.6-10.4); Carbon Dioxide 21 mmol/L (22-30); Chloride 102 mmol/L (96-108); Globulin 2.5 gm/dL (2.2-3.7); Glomerular Filtration Rate 105; Glucose 128 mg/dL (70-105); Lactate Dehydrogenase 210 U/L (135-225); Phosphorous 2.7 mg/dL (2.5-4.5); Triglycerides 86 mg/dL (<150); Uric Acid 2.6 mg/dL (2.5-8.0)
[2021-09-20 08:26] LABS: Thyroid Stimulating Hormone 7.84 uIU/mL (0.27-5.01)
[2021-09-20] MEDS: ENOXAPARIN 40 MG/0.4 ML SYRINGE SQ SCH (08:51)
[2021-09-20] MEDS: cefTRIAXone 2 GM in DEXTROSE 5% IN WATER 50 ML IV SCH (08:51)
[2021-09-20] MEDS: FOLIC ACID 1 MG TABLET PO SCH (08:52)
[2021-09-20] MEDS: PANTOPRAZOLE 40 MG TABLET PO SCH (08:52)
[2021-09-20] MEDS: DOCUSATE SODIUM 100 MG CAPSULE PO SCH ×2 (08:52→20:50)
[2021-09-20] MEDS: LOSARTAN 50 MG TABLET PO SCH (08:52)
[2021-09-20] MEDS: LEVOTHYROXINE 100 MCG TABLET PO SCH (08:53)
[2021-09-20] MEDS ORDERED: LOSARTAN 50 MG TABLET PO SCH (09:00)
[2021-09-20] MEDS: LORazepam 0.5 MG TABLET PO PRN (09:20)
[2021-09-20] MEDS ORDERED: PNEUMOCOCCAL 23-VAL P-SAC VAC 0.5 ML SYRINGE IM ONE (10:00)
--- NOTE | 2021-09-20 12:09 | XRay Report ---
CLINICAL INFORMATION: Trauma/fall COMPARISON: None. FINDINGS: Complete lateral patellar dislocation is appreciated. There is a fracture through the inferior medial patellar pole with a minimally fragment leading. There are 3-4 irregular ossifications raising up to 1.5 cm in the lateral patellofemoral recess. The femur, tibia and fibula unremarkable. Mild tibiofemoral degeneration IMPRESSION: Lateral patellar dislocation with minimally displaced fractures of the inferior medial pole of patella. Scattered calcifications in the patellofemoral joint noted Interpreted and Authenticated by: Horacio Rushing 09/20/21
--- NOTE | 2021-09-20 12:27 | History and Physical Report ---
DATE OF ADMISSION: 09/19/2021 IDENTIFICATION: This is a 71-year-old female. CHIEF COMPLAINT: Right patellar fracture and that is the reason for consultation as well as her bilateral shoulders. HISTORY OF PRESENT ILLNESS: Ms. Magallanes was admitted yesterday with stroke symptoms although she had a very elevated blood alcohol level. On admission, Dr Batista noted a MRI scan obtained as an outpatient which showed bilateral rotator cuff tears and a right patellar fracture. I am now called for further evaluation and management. In discussion, she does complain of shoulder pain bilaterally and she does also complain of right knee pain. She does state that she fell about 18 days ago but she seems somewhat confused and is a quite poor historian. PAST MEDICAL HISTORY: Significant for sepsis apparently on admission, UTI, alcohol intoxication, metabolic encephalopathy and further defined on the chart. HOME MEDICATIONS: Thyroid, lorazepam, losartan, Protonix, tramadol and Ambien. ALLERGIES: NONE. PHYSICAL EXAMINATION: GENERAL: Shows that she is awake and responds appropriately but does seem confused and is a poor historian. HEAD: Normocephalic, atraumatic. EYES: PERRLA. Conjunctiva clear. ENT: Within normal limits. HEART: Regular. LUNGS: Clear. ABDOMEN: Benign. EXTREMITIES: Her shoulder, she does have limited abduction and limited active forward flexion and does have positive rotator cuff signs bilaterally. The right knee does have a low grade effusion. There is no active inflammation. There is no surrounding erythema. She has some really no significant tenderness to palpation directly over the patella and her range of motion is 0-90. IMAGING: Her MRI scan, there certainly is rotator cuff tears on her shoulder MRI scans and the MRI scans of her knee does demonstrate what appears to be a patellar fracture but the age is undetermined and appears somewhat chronic. Patella is subluxed laterally. IMPRESSION: 1. Bilateral rotator cuff tears, chronic in nature. 2. Right patellar fracture, this also appears to be subacute, probably did not happen within the last several weeks. PLAN: We will obtain radiographs to try and find this further and the patient will be followed as an outpatient. She can be weightbearing as tolerated. If she has difficulty bearing weight and the knee wants to give way, she may use a knee immobilizer and should be followed as an outpatient. GDD:salinas Job ID: [id number] Doc ID: [id number] Mika Shields MD
[2021-09-20] MEDS: DEXTROSE 5%-LR W/20MEQ KCL 1,000 ML IV SCH (12:53)
--- NOTE | 2021-09-20 17:06 | Internal Med Progress Note ---
SUBJECTIVE Subjective Patient information: Note initiated : 09/20/21 at 5:05 pm Service Date, if different from initiated Date: [] Patient: Philly Magallanes 71 y/o F admitted on 09/19/21 for Stroke symptoms. Chief Complaint: [] Principal diagnosis: weakness Interval history: Ms. Magallanes is a 71 year old F With history of alcohol use, hypertension, anxiety, on chronic benzo therapy, presents to the emergency room yesterday for evaluation of altered mental status. The patient has been having recurrent falls, she had an MRI of bilateral shoulders done which shows complete tear bilateral rotator cuffs, she also has a patellar fracture that was diagnosed a approximately 10 days ago. The patient has been bedbound and it has been difficult for the patient to care for self. At this time it looks like the patient is living with her , with some support, and the caregiver walked in, the patient was confused, and therefore the patient was sent to the emergency room for further evaluation. The patient presented to the emergency room yesterday, initially there was a concern for CVA, head CT was negative, however on subsequent an evaluation it was determined that the patient probably was intoxicated, patient did have an elevated alcohol level of more than 400. The patient lab work showed mild leukocytosis and a UA suggestive of urinary tract infection. She also had elevated lactic acid. The patient was treated with IV fluids, started on CIWA protocol, and IV antibiotics. There was no bed available in the hospital in this facility or in the local [place], therefore an effort was made to transfer the patient to hospital nearby. The patient's family has refused the transfer. And therefore the patient stayed in the ED until a bed opened up here. On my evaluation patient's mental status had improved significantly, she is alert oriented x3, admits to some, constipation, denies any other acute c omplaint or concern. She has pain in her shoulders and the knee, which seems to be chronic. Given the fact that the patient is unable to care for self at home, and concern for alcohol withdrawal along with urinary tract infection patients will be admitted to the hospital for further management 09/20 Patient seen examined, Pt seems mentating ok, no acute complaints or concerns, tolerating po ok Still has discofrot in shoulders and some pain in the knee, did not use the knee immobilizer as advised. CIWA scores 13---5 Ortho consultd for patella fracture and denise shoulder rotator cuff injury, Ad vised outpatient follow up wound care consulted for left buttock decub wound OT/PT eval pending, a Pertinent ROS: Denies headache, dizziness Denies chest pain, palpitations Denies cough or shortness of breath Denies abdominal pain, nausea or vomiting. Constitutional Vitals: Vital Signs Temp Pulse Resp BP Pulse Ox 100.1 F H 113 H 17 139/74 98 09/20/21 15:45 09/20/21 15:45 09/20/21 15:45 09/20/21 15:45 09/20/21 15:45 Period Temp Pulse Resp BP Sys/Ramírez Pulse Ox Last 24 Hr 97.4 F-100.1 F 104-113 12-24 134-156/72-116 97-100 Intake and Output 09/20/21 09/20/21 09/20/21 05:59 13:59 21:59 Intake Total 1470 1850 Output Total 505 Balance 965 1850 Weight 84.141 kg Patient Weight 09/21/21 05:59 Weight 84.141 kg Intake & Output: Intake & Output 09/20/21 09/20/21 09/20/21 05:59 13:59 21:59 Intake Total 1470 1850 Output Total 505 Balance 965 1850 Weight 84.141 kg Intake: IV 1050 Dextrose 5%-Lr W/20Meq KCl 1, 1000 000 ml @ 75 mls/hr IV .[id number] Rx#:[id number] Rocephin 2 gm In Dextrose 5% in 50 Water 50 ml @ 100 mls/hr IV Q24H [facility] Rx#:[id number] Oral 1470 800 Output: Void Amount 500 # of times incontinent of urine 5 Other: Meal Dinner Lunch Percent of Meal Consumed a few bite 100% Feeding Ability Independent Urine Color [place] Stool Size Large Stool Color Brown Stool Consistency Dry and Hard # of times incontinent of 1 Bowels Additional findings Additional findings: PHysical Exam Constitutional; Afebrile, cooperative, alert, not in distress. Eyes- No icterus, , No periorbital swelling Ears- Ext ear normal, hearing normal to conversation. Neck- Midline trachea, supple Respiratory system: Air Entry equal on both sides, No crackles or wheezing, no rhonchi. CVS- Rate Tacycardic, rhythm regular, S1,S2 heard, no gallop, no rub. 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 OBJ DATA Labs CBC & Chem 7: 09/20/21 05:38 09/20/21 05:38 Labs: Abnormal Lab Results 09/20/21 09/20/21 09/20/21 05:38 05:38 05:38 RBC 3.55 L MPV 10.8 H Lymph % (Auto) Lymph # (Auto) 1.22 L VBG Lactic Acid Carbon Dioxide 21 L Anion Gap BUN Creatinine 0.4 L Glucose 128 H Calcium AST TSH 7.84 H Urine Appearance Urine Protein Urine Occult Blood Ur Leukocyte Esterase Urine RBC Urine WBC Amorphous Crystals Ethyl Alcohol 09/19/21 09/19/21 09/18/21 08:42 08:42 11:51 RBC 3.48 L MPV 10.5 H Lymph % (Auto) 14.2 L Lymph # (Auto) 1.17 L VBG Lactic Acid Carbon Dioxide Anion Gap BUN Creatinine 0.4 L Glucose 111 H Calcium 8.2 L AST TSH Urine Appearance Turbid A Urine Protein >=300 mg/dl A Urine Occult Blood Large A Ur Leukocyte Esterase Large A Urine RBC 74 H Urine WBC 42 H Amorphous Crystals Few A Ethyl Alcohol 09/18/21 09/18/21 09/18/21 11:40 11:40 11:15 RBC MPV Lymph % (Auto) Lymph # (Auto) VBG Lactic Acid 2.9 H Carbon Dioxide 17 L Anion Gap 19.0 H BUN 25 H Creatinine 0.5 L Glucose Calcium AST 35 H TSH Urine Appearance Urine Protein Urine Occult Blood Ur Leukocyte Esterase Urine RBC Urine WBC Amorphous Crystals Ethyl Alcohol 0.417 H Meds: Medications Acetaminophen (Acetaminophen 325 Mg Tablet) 650 mg PO Q4-6HP PRN; Protocol PRN Reason: Per Pain Protocol Chlordiazepoxide HCl (Chlordiazepoxide 25 Mg Capsule) 25 mg PO Q4-6HP PRN PRN Reason: Alcohol Withdrawal Stop: 09/21/21 19:06 Last Admin: 09/20/21 01:28 Dose: 25 mg Documented by: Docusate Sodium (Docusate Sodium 100 Mg Capsule) 100 mg PO BID [facility] Last Admin: 09/20/21 08:52 Dose: 100 mg Documented by: Enoxaparin Sodium (Enoxaparin 40 Mg/0.4 Ml Syringe) 40 mg SQ DAILY [facility] Last Admin: 09/20/21 08:51 Dose: 40 mg Documented by: Estrogens Conjugated (Estrogens, Conjugated 0.9 Mg Tablet) 0.9 mg PO DAILY [facility] Folic Acid (Folic Acid 1 Mg Tablet) 1 mg PO DAILY [facility] Last Admin: 09/20/21 08:52 Dose: 1 mg Documented by: Ceftriaxone Sodium 2 gm/ (Dextrose) 50 mls @ 100 mls/hr IV Q24H [facility]; Protocol Last Infusion: 09/20/21 09:22 Dose: Infused Documented by: Potassium Cl/Dextrose/Lact Ringer's (Dextrose 5%-Lr W/20meq Kcl) 1,000 mls @ 75 mls/hr IV .[id number] [facility] Last Admin: 09/20/21 12:53 Dose: 75 mls/hr Documented by: Iron Carb/Multivit/[place]/Folic Acid (Multivit,Ther Iron,Ca,Fa & Min 1 Tablet) 1 tab PO [facility] Last Admin: 09/19/21 21:43 Dose: 1 tab Documented by: Levothyroxine Sodium (Levothyroxine 100 Mcg Tablet) [facility] Last Admin: 09/20/21 08:53 Dose: 100 mcg Documented by: Lorazepam (Lorazepam 2 Mg/Ml Vial) 1 mg IV Q1HP PRN PRN Reason: ANXIETY/SEDATION Last Admin: 09/20/21 11:19 Dose: 1 mg Documented by: Lorazepam (Lorazepam 0.5 Mg Tablet) 0.5 mg PO DAILYP PRN PRN Reason: Anxiety Last Admin: 09/20/21 09:20 Dose: 0.5 mg Documented by: Losartan Potassium (Losartan 50 Mg Tablet) 100 mg PO DAILY [facility] Last Admin: 09/20/21 08:52 Dose: 100 mg Documented by: Non-Formulary Medication (Medroxyprogesterone) 5 mg PO QDAY [facility] Ondansetron HCl (Ondansetron 4 Mg/2 Ml Vial) 4 mg IV Q6HP PRN PRN Reason: Nausea And Vomiting Pantoprazole Sodium (Pantoprazole 40 Mg Tablet) 40 mg PO QAMAC [facility] Last Admin: 09/20/21 08:52 Dose: 40 mg Documented by: Senna (Sennosides 1 Tablet) 2 tab PO [facility] Last Admin: 09/19/21 21:42 Dose: 2 tab Documented by: Sodium Chloride (0.9 % Sodium Chloride 10 Ml Syringe) 10 ml IV Q8 [facility] Last Admin: 09/20/21 14:47 Dose: Not Given Documented by: Thiamine HCl (Thiamine 100 Mg Tablet) 100 mg PO [facility] Last Admin: 09/19/21 21:43 Dose: 100 mg Documented by: Tramadol HCl (Tramadol (Pp) 50 Mg Tablet (#4)) 50 mg PO TID PRN PRN Reason: Pain Zolpidem Tartrate (Zolpidem 5 Mg Tablet) 10 mg PO QHS PRN PRN Reason: Sleep A/P Narrative A/P Narrative: Altered mental status Alcohol intoxication Metabolic Encephalopathy -suspect a combination of factors -clinically stable, head CT is neg, and recent mra is reassuring Alcohol Withdrawal -still tachycadic, CIWA 13--5 -ativan prn severe Sepsis (Present on admission) Urinary tract infection -follow cultures, NGTD for blood cultures -positive urine culture for aerococcus, rocephin should cover, can be discharged on oral amoxicillin. -IV fluids for now Decub ulceration -due to bed bound status -wound care consulted Frequent falls -etiology? due to etoh? -will get OT/PT eval Bilateral shoulder rotator cuff injury -seems from previous falls -appreciate ortho input -outaptient ortho follow up Patella fracuture -Right knee patella fracture with dislocation -diagnosed on of this month -not sure if has had ortho evaluation, but based on fact has been mostly home, doubt it -Ortho consulted, appreciate help, -knee immobilizer, if issues with knee stability -WBAT -Outpatient follow up DVT -lovenox Time Spent With Patient Time: Total time spent is greater than 50% in coordination of care (as documented) at patient's floor/unit and/or counseling patient: Total time spent with greater than 50% in coordination of care (as documented) at patient's floor/unit and/or counseling patient:: Greater than 35 minutes QUALITY Stroke Symptom Onset Unknown: No VTE Deep Vein Thrombosis/Pulmonary Embolism Present on Admission: No
[2021-09-20] MEDS: SENNOSIDES 1 TABLET PO SCH (20:50)
[2021-09-20] MEDS: MULTIVIT,THER IRON,CA,FA & MIN 1 TABLET PO SCH (20:50)
[2021-09-20] MEDS: THIAMINE 100 MG TABLET PO SCH (20:50)
[2021-09-20] MEDS: ZOLPIDEM 5 MG TABLET PO PRN (20:51)
[2021-09-21] MEDS: DEXTROSE 5%-LR W/20MEQ KCL 1,000 ML IV SCH ×3 (00:09→23:49)
[2021-09-21] MEDS: 0.9 % SODIUM CHLORIDE 10 ML SYRINGE IV SCH ×3 (04:29→21:53)
[2021-09-21 07:13] LABS: Basophils # (Auto) 0.03 K/mcL (0.00-0.30); Basophils % (Auto) 0.4 % (0.0-2.0); Eosinophils % (Auto) 4.2 % (0.0-7.0); Hematocrit 35.4 % (34.1-44.9); Hemoglobin 11.3 g/dL (11.2-15.7); Lymphocytes # (Auto) 1.39 K/mcL (1.50-4.80); Lymphocytes % (Auto) 19.4 % (15.5-49.0); Mean Cell Volume 99.4 fL (80.0-100.0); Mean Corpuscular HGB Conc 31.9 g/dL (31.0-36.0); Mean Platelet Volume 10.9 fL (7.4-10.4); Monocytes # (Auto) 0.64 K/mcL (0.10-0.90); Monocytes % (Auto) 8.9 % (1.0-12.0); Neutrophils % (Auto) 67.1 % (38.0-78.0); Platelet Count 220 K/mcL (140-440); RBC 3.56 M/mcL (3.59-5.38); Red Cell Distribution Width 12.9 % (11.5-14.5); WBC 7.2 K/mcL (4.5-11.0)
[2021-09-21 07:54] LABS: ALT/SGPT 15 U/L (<40); AST/SGOT 19 U/L (<32); Albumin 3.3 gm/dL (3.2-5.2); Albumin/Globulin Ratio 1.2 (1.0-2.3); Alkaline Phosphatase 77 U/L (39-117); Bilirubin,Direct < 0.2 mg/dL (0-0.3); Bilirubin,Total 0.3 mg/dL (0.1-1.0); Blood Urea Nitrogen 6 mg/dL (8-23); Carbon Dioxide 22 mmol/L (22-30); Chloride 101 mmol/L (96-108); Globulin 2.7 gm/dL (2.2-3.7); Glomerular Filtration Rate 105; Glucose 124 mg/dL (70-105); Lactate Dehydrogenase 229 U/L (135-225); Phosphorous 2.4 mg/dL (2.5-4.5); Triglycerides 106 mg/dL (<150); Uric Acid 2.4 mg/dL (2.5-8.0)
--- NOTE | 2021-09-21 08:37 | Internal Med Progress Note ---
SUBJECTIVE Subjective Patient information: Note initiated : 09/21/21 at 8:32 am Service Date, if different from initiated Date: [] Patient: Philly Magallanes 71 y/o F admitted on 09/19/21 for Stroke symptoms. Chief Complaint: [] Principal diagnosis: weakness Interval history: Ms. Magallanes is a 71 year old F With history of alcohol use, hypertension, anxiety, on chronic benzo therapy, presents to the emergency room yesterday for evaluation of altered mental status. The patient has been having recurrent falls, she had an MRI of bilateral shoulders done which shows complete tear bilateral rotator cuffs, she also has a patellar fracture that was diagnosed a approximately 10 days ago. The patient has been bedbound and it has been difficult for the patient to care for self. At this time it looks like the patient is living with her , with some support, and the caregiver walked in, the patient was confused, and therefore the patient was sent to the emergency room for further evaluation. The patient presented to the emergency room yesterday, initially there was a concern for CVA, head CT was negative, however on subsequent an evaluation it was determined that the patient probably was intoxicated, patient did have an elevated alcohol level of more than 400. The patient lab work showed mild leukocytosis and a UA suggestive of urinary tract infection. She also had elevated lactic acid. The patient was treated with IV fluids, started on CIWA protocol, and IV antibiotics. There was no bed available in the hospital in this facility or in the local [place], therefore an effort was made to transfer the patient to hospital nearby. The patient's family has refused the transfer. And therefore the patient stayed in the ED until a bed opened up here. On my evaluation patient's mental status had improved significantly, she is alert oriented x3, admits to some, constipation, denies any other acute c omplaint or concern. She has pain in her shoulders and the knee, which seems to be chronic. Given the fact that the patient is unable to care for self at home, and concern for alcohol withdrawal along with urinary tract infection patients will be admitted to the hospital for further management 09/20 Patient seen examined, Pt seems mentating ok, no acute complaints or concerns, tolerating po ok Still has discofrot in shoulders and some pain in the knee, did not use the knee immobilizer as advised. CIWA scores 13---5 Ortho consultd for patella fracture and denise shoulder rotator cuff injury, Ad vised outpatient follow up wound care consulted for left buttock decub wound OT/PT eval pending, 09/21 Patient seen examined, sleeing this AM, but woke up. NO acute complaints or concerns CIWA cores 0-12 over last 24 hrs Intermittent Tachycardia, OT/PT eval pending / Wound care eval pending Anticipate d/c to snf in AM Given tachycardia, will check dimer, if significantly elevated consider CTA Pertinent ROS: Denies headache, dizziness Denies chest pain, palpitations Denies cough or shortness of breath Denies abdominal pain, nausea or vomiting. Constitutional Vitals: Vital Signs Temp Pulse Resp BP Pulse Ox 97.5 F 101 H 16 149/76 97 09/21/21 04:00 09/21/21 04:00 09/21/21 04:00 09/21/21 04:00 09/21/21 04:00 Period Temp Pulse Resp BP Sys/Ramírez Pulse Ox Last 24 Hr 97.5 F-100.1 F 100-113 16-18 135-149/64-116 96-100 Intake and Output 09/20/21 09/21/21 09/21/21 21:59 05:59 13:59 Intake Total 480 1600 Output Total 1105 1200 Balance -625 400 Weight 83.461 kg Intake & Output: Intake & Output 09/20/21 09/21/21 09/21/21 21:59 05:59 13:59 Intake Total 480 1600 Output Total 1105 1200 Balance -625 400 Weight 83.461 kg Intake: IV 1000 Dextrose 5%-Lr W/20Meq KCl 1, 1000 000 ml @ 75 mls/hr IV .[id number] [facility] Rx#:[id number] Oral 480 600 Output: Void Amount 1100 1200 # of times incontinent of urine 5 Other: Meal Dinner Percent of Meal Consumed 100% Feeding Ability Independent Urine Appearance Clear Clear Urine Color Bright Red Bright Red Urine Odor Normal Stool Size Large Stool Color Brown Stool Consistency Dry and Hard Additional findings Additional findings: Physical Exam Constitutional; Afebrile, cooperative, was sleeping ,woke up to verbal cue not in distress. Eyes- No icterus, , No periorbital swelling Ears- Ext ear normal, hearing normal to conversation. Neck- Midline trachea, supple Respiratory system: Air Entry equal on both sides, No crackles or wheezing, no rhonchi. CVS- Rate tachycardic, rhythm regular, S1,S2 heard, no gallop, no rub. 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 OBJ DATA Labs CBC & Chem 7: 09/21/21 05:24 09/21/21 05:24 Labs: Abnormal Lab Results 09/21/21 09/21/21 09/20/21 05:24 05:24 05:38 RBC 3.56 L MPV 10.9 H Lymph % (Auto) Lymph # (Auto) 1.39 L VBG Lactic Acid Carbon Dioxide Anion Gap BUN 6 L Creatinine 0.4 L Glucose 124 H Uric Acid 2.4 L Calcium Phosphorus 2.4 L AST Lactate Dehydrogenase 229 H TSH 7.84 H Urine Appearance Urine Protein Urine Occult Blood Ur Leukocyte Esterase Urine RBC Urine WBC Amorphous Crystals Ethyl Alcohol 09/20/21 09/20/21 09/19/21 05:38 05:38 08:42 RBC 3.55 L MPV 10.8 H Lymph % (Auto) Lymph # (Auto) 1.22 L VBG Lactic Acid Carbon Dioxide 21 L Anion Gap BUN Creatinine 0.4 L 0.4 L Glucose 128 H 111 H Uric Acid Calcium 8.2 L Phosphorus AST Lactate Dehydrogenase TSH Urine Appearance Urine Protein Urine Occult Blood Ur Leukocyte Esterase Urine RBC Urine WBC Amorphous Crystals Ethyl Alcohol 09/19/21 09/18/21 09/18/21 08:42 11:51 11:40 RBC 3.48 L MPV 10.5 H Lymph % (Auto) 14.2 L Lymph # (Auto) 1.17 L VBG Lactic Acid Carbon Dioxide Anion Gap BUN Creatinine Glucose Uric Acid Calcium Phosphorus AST Lactate Dehydrogenase TSH Urine Appearance Turbid A Urine Protein >=300 mg/dl A Urine Occult Blood Large A Ur Leukocyte Esterase Large A Urine RBC 74 H Urine WBC 42 H Amorphous Crystals Few A Ethyl Alcohol 0.417 H 09/18/21 09/18/21 11:40 11:15 RBC MPV Lymph % (Auto) Lymph # (Auto) VBG Lactic Acid 2.9 H Carbon Dioxide 17 L Anion Gap 19.0 H BUN 25 H Creatinine 0.5 L Glucose Uric Acid Calcium Phosphorus AST 35 H Lactate Dehydrogenase TSH Urine Appearance Urine Protein Urine Occult Blood Ur Leukocyte Esterase Urine RBC Urine WBC Amorphous Crystals Ethyl Alcohol Meds: Medications Acetaminophen (Acetaminophen 325 Mg Tablet) 650 mg PO Q4-6HP PRN; Protocol PRN Reason: Per Pain Protocol Chlordiazepoxide HCl (Chlordiazepoxide 25 Mg Capsule) 25 mg PO Q4-6HP PRN PRN Reason: Alcohol Withdrawal Stop: 09/21/21 19:06 Last Admin: 09/20/21 20:52 Dose: 25 mg Documented by: Docusate Sodium (Docusate Sodium 100 Mg Capsule) 100 mg PO BID [facility] Last Admin: 09/20/21 20:50 Dose: 100 mg Documented by: Enoxaparin Sodium (Enoxaparin 40 Mg/0.4 Ml Syringe) 40 mg SQ DAILY [facility] Last Admin: 09/20/21 08:51 Dose: 40 mg Documented by: Estrogens Conjugated (Estrogens, Conjugated 0.9 Mg Tablet) 0.9 mg PO DAILY [facility] Folic Acid (Folic Acid 1 Mg Tablet) 1 mg PO DAILY [facility] Last Admin: 09/20/21 08:52 Dose: 1 mg Documented by: Ceftriaxone Sodium 2 gm/ (Dextrose) 50 mls @ 100 mls/hr IV Q24H [facility]; Protocol Last Infusion: 09/20/21 09:22 Dose: Infused Documented by: Potassium Cl/Dextrose/Lact Ringer's (Dextrose 5%-Lr W/20meq Kcl) 1,000 mls @ 75 mls/hr IV .[id number] [facility] Last Admin: 09/21/21 00:09 Dose: 75 mls/hr Documented by: Iron Carb/Multivit/Security Operations Engineer/Folic Acid (Multivit,Ther Iron,Ca,Fa & Min 1 Tablet) 1 tab PO HS [facility] Last Admin: 09/20/21 20:50 Dose: 1 tab Documented by: Levothyroxine Sodium (Levothyroxine 100 Mcg Tablet) 100 mcg PO QAMAC [facility] Last Admin: 09/20/21 08:53 Dose: 100 mcg Documented by: Lorazepam (Lorazepam 2 Mg/Ml Vial) 1 mg IV Q1HP PRN PRN Reason: ANXIETY/SEDATION Last Admin: 09/20/21 17:16 Dose: 1 mg Documented by: Lorazepam (Lorazepam 0.5 Mg Tablet) 0.5 mg PO DAILYP PRN PRN Reason: Anxiety Last Admin: 09/20/21 09:20 Dose: 0.5 mg Documented by: Losartan Potassium (Losartan 50 Mg Tablet) 100 mg PO DAILY [facility] Last Admin: 09/20/21 08:52 Dose: 100 mg Documented by: Medroxyprogesterone (5 Mg Tablet) 1 dose PO DAILY [facility] Ondansetron HCl (Ondansetron 4 Mg/2 Ml Vial) 4 mg IV Q6HP PRN PRN Reason: Nausea And Vomiting Pantoprazole Sodium (Pantoprazole 40 Mg Tablet) 40 mg PO QAMAC [facility] Last Admin: 09/20/21 08:52 Dose: 40 mg Documented by: Senna (Sennosides 1 Tablet) 2 tab PO [facility] Last Admin: 09/20/21 20:50 Dose: 2 tab Documented by: Sodium Chloride (0.9 % Sodium Chloride 10 Ml Syringe) 10 ml IV Q8 [facility] Last Admin: 09/21/21 04:29 Dose: 10 ml Documented by: Thiamine HCl (Thiamine 100 Mg Tablet) 100 mg PO [facility] Last Admin: 09/20/21 20:50 Dose: 100 mg Documented by: Tramadol HCl (Tramadol 50 Mg Tablet) 50 mg PO TIDP PRN PRN Reason: Pain Zolpidem Tartrate (Zolpidem 5 Mg Tablet) 10 mg PO QHS PRN PRN Reason: Sleep Last Admin: 09/20/21 20:51 Dose: 10 mg Documented by: A/P Narrative A/P Narrative: Altered mental status Alcohol intoxication Metabolic Encephalopathy -suspect a combination of factors -clinically stable, head CT is neg, and recent mra is reassuring Alcohol Withdrawal -still tachycardic intermittently, CIWA 0-12 -ativan prn Tachycardia -check dimer, if significantly elevated will get CTA severe Sepsis (Present on admission) Urinary tract infection -follow cultures, NGTD for blood cultures -positive urine culture for aerococcus, rocephin should cover, can be discharged on oral amoxicillin. -IV fluids for now Decub ulceration -due to bed bound status -wound care consulted Frequent falls -etiology? due to etoh? -will get OT/PT eval -will likelyi need placements Bilateral shoulder rotator cuff injury -seems from previous falls -appreciate ortho input -outpatient ortho follow up Patella fracuture -Right knee patella fracture with dislocation -diagnosed on of this month -not sure if has had ortho evaluation, but based on fact has been mostly home, doubt it -Ortho consulted, appreciate help, -knee immobilizer, if issues with knee stability -WBAT -Outpatient follow up DVT -lovenox Time Spent With Patient Time: Total time spent is greater than 50% in coordination of care (as documented) at patient's floor/unit and/or counseling patient: Total time spent with greater than 50% in coordination of care (as documented) at patient's floor/unit and/or counseling patient:: Greater than 35 minutes QUALITY Stroke Symptom Onset Unknown: No VTE Deep Vein Thrombosis/Pulmonary Embolism Present on Admission: No
[2021-09-21] MEDS: DOCUSATE SODIUM 100 MG CAPSULE PO SCH ×2 (08:57→19:53)
[2021-09-21] MEDS: FOLIC ACID 1 MG TABLET PO SCH (08:57)
[2021-09-21] MEDS: LEVOTHYROXINE 100 MCG TABLET PO SCH (08:58)
[2021-09-21] MEDS: ENOXAPARIN 40 MG/0.4 ML SYRINGE SQ SCH (08:58)
[2021-09-21] MEDS: LOSARTAN 50 MG TABLET PO SCH (08:58)
[2021-09-21] MEDS: PANTOPRAZOLE 40 MG TABLET PO SCH (08:58)
[2021-09-21] MEDS: medroxyPROGESTERone 5 MG TABLET PO SCH (08:59)
[2021-09-21] MEDS ORDERED: ESTROGENS, CONJUGATED 0.9 MG TABLET PO SCH (09:00)
[2021-09-21] MEDS: LORazepam 2 MG/ML VIAL IV PRN ×3 (10:08→21:17)
[2021-09-21] MEDS ORDERED: IOPAMIDOL 100 ML BOTTLE IV ONE (11:10)
[2021-09-21] MEDS: cefTRIAXone 2 GM in DEXTROSE 5% IN WATER 50 ML IV SCH (11:19)
--- NOTE | 2021-09-21 12:04 | General Surgery Consult Note ---
HPI Data of Consult Consult date: 09/20/21 Requesting physician: Marilee Batista Primary Care Provider: Reece Galvez Family Provider: 09/21/2021 I saw this patient along with Allison STOUT in room 125 on Med Surg floor. Consulted for skin ulceration / wound of LEFT gluteal region. Reviewed EHR and discussed plan of care with Dr. Medina Hospitalist . Consult Narrative cc:: CC: Marilee Batista Review of Systems All systems: reviewed and no additional remarkable complaints except as stated Constitutional Additional comments: Cooperative patient. Moves well in bed. Integumentary Integumentary: Present wounds Additional comments: Pruritus related skin tear wounds Grade / Stage 1 LEFT buttock. PFSH PFSH All Active Problems Alcoholic intoxication (Acute) Urinary tract infection (Acute) Decubitus ulcer (Acute) MEDS/ALLERGIES Home Medications and Allergies Home Medications Medication Instructions Recorded Confirmed Type levothyroxine 100 mcg tablet 100 mcg PO QDAY 09/19/21 09/19/21 History (Synthroid) lorazepam 0.5 mg tablet (Ativan) 0.5 mg PO QDAY PRN 09/19/21 09/19/21 History losartan 100 mg tablet 100 mg PO QDAY 09/19/21 09/19/21 History pantoprazole 40 mg tablet,delayed 40 mg PO QDAY 09/19/21 09/19/21 History release (Protonix) tramadol 50 mg tablet 50 mg PO TID PRN 09/19/21 09/19/21 History zolpidem 5 mg tablet (Ambien) 10 mg PO QHS PRN 09/19/21 09/19/21 History conjugated estrogens 0.9 mg tablet 0.9 mg PO DAILY 09/20/21 09/20/21 History (Premarin) medroxyprogesterone 5 mg tablet 5 mg PO QDAY 09/20/21 09/20/21 History Allergies Allergy/AdvReac Type Severity Reaction Status Date / Time No Known Drug Allergies Allergy Verified 09/18/21 10:40 Physical Examination Vital Signs Vital signs: Temp Pulse Resp BP Pulse Ox 97.6 F 101 H 20 130/71 97 09/21/21 08:00 09/21/21 04:00 09/21/21 08:00 09/21/21 08:00 09/21/21 08:00 General physical appearance General physical exam: well developed, well nourished, no distress and no pain Eyes Eye exam: PERRL and normal ocular movement ENT ENT exam: normal pinna, normal mucosa and no congestion Head Head exam IM: Present atraumatic and normocephalic Neck Neck exam: no masses, trachea midline and no venous distension Cardiovascular Cardiovascular exam IM: Present normal rate and rhythm Respiratory Respiratory exam: normal respiratory effort and clear to auscultation Abdomen Abdomen: Present soft, non tender and bowel sounds Integumentary Integumentary: Present other (Stage 1 skin tears #2 <2 CM size. NO evidence of urine or stool contamination.) Neurologic Neurologic: Present normal coordination and other (Obeys commands. Moves well in bed. No focal weakness. Moves all 4 limbs. ) Musculoskeletal Musculoskeletal: Present other (Chronic rotator cuff tears of both shoulders and Chronic RIGHT pataellar fracture.) Psychiatric Psychiatric: Present other (Cooperative. Appropriate. Denies pain. ) Results Labs Result diagrams: 09/21/21 05:24 09/21/21 05:24 Labs: Abnormal lab results 09/21/21 09/21/21 09/21/21 Range/Units 05:24 05:24 08:55 RBC 3.56 L (3.59-5.38) M/mcL MPV 10.9 H (7.4-10.4) fL Lymph # (Auto) 1.39 L (1.50-4.80) K/mcL D-Dimer 3.36 H (0.27-0.50) ug/mL BUN 6 L (8-23) mg/dL Creatinine 0.4 L (0.6-1.1) mg/dL Glucose 124 H (70-105) mg/dL Uric Acid 2.4 L (2.5-8.0) mg/dL Phosphorus 2.4 L (2.5-4.5) mg/dL Lactate Dehydrogenase 229 H (135-225) U/L Diabetes panel 09/21/21 Range/Units 05:24 Sodium 134 (133-145) mmol/L Potassium 3.8 (3.3-5.1) mmol/L Chloride 101 (96-108) mmol/L Carbon Dioxide 22 (22-30) mmol/L BUN 6 L (8-23) mg/dL Creatinine 0.4 L (0.6-1.1) mg/dL Glucose 124 H (70-105) mg/dL Calcium 9.0 (8.6-10.4) mg/dL AST 19 (<32) U/L ALT 15 (<40) U/L Alkaline Phosphatase 77 (39-117) U/L Total Protein 6.0 (5.9-8.4) gm/dL Albumin 3.3 (3.2-5.2) gm/dL Triglycerides 106 (<150) mg/dL Calcium panel 09/21/21 Range/Units 05:24 Calcium 9.0 (8.6-10.4) mg/dL Phosphorus 2.4 L (2.5-4.5) mg/dL Albumin 3.3 (3.2-5.2) gm/dL Pituitary panel 09/21/21 Range/Units 05:24 Sodium 134 (133-145) mmol/L Potassium 3.8 (3.3-5.1) mmol/L Chloride 101 (96-108) mmol/L Carbon Dioxide 22 (22-30) mmol/L BUN 6 L (8-23) mg/dL Creatinine 0.4 L (0.6-1.1) mg/dL Glucose 124 H (70-105) mg/dL Calcium 9.0 (8.6-10.4) mg/dL Adrenal panel 09/21/21 Range/Units 05:24 Sodium 134 (133-145) mmol/L Potassium 3.8 (3.3-5.1) mmol/L Chloride 101 (96-108) mmol/L Carbon Dioxide 22 (22-30) mmol/L BUN 6 L (8-23) mg/dL Creatinine 0.4 L (0.6-1.1) mg/dL Glucose 124 H (70-105) mg/dL Calcium 9.0 (8.6-10.4) mg/dL Total Bilirubin 0.3 (0.1-1.0) mg/dL AST 19 (<32) U/L ALT 15 (<40) U/L Alkaline Phosphatase 77 (39-117) U/L Total Protein 6.0 (5.9-8.4) gm/dL Albumin 3.3 (3.2-5.2) gm/dL All other labs normal. Imaging Chest x-ray: report reviewed and image reviewed Additional studies: Patient had CT angiogram chest for elevated D Dimer. . Reviewed pictures. Report awaited. A/P Narrative A/P Narrative: Assessment: Grade / Stage 1 Skin tear LEFT buttock / gluteal region. Likely pruritic. NO evidence of urine or stool contmaination. Comorbidities: Recovering from metabolic encephalopathy Hypothyroidism UTI SIRS / Resolving. Plan: Agree with ongoing medical management. Skin tear LEFT buttock Grade / Stage 1 Treat with local cleansing. Air dry SILVASORB ointment Mepilex border foam dressing X 3 week. Will follow patient during her hospitalization. Time Spent With Patient Time: Total time spent is greater than 50% in coordination of care (as documented) at patient's floor/unit and/or counseling patient: Total time spent with greater than 50% in coordination of care (as documented) at patient's floor/unit and/or counseling patient:: Greater than 35 minutes
[2021-09-21] MEDS ORDERED: SILVASORB PRN (12:09)
--- NOTE | 2021-09-21 13:12 | Internal Med Progress Note ---
SUBJECTIVE Subjective Patient information: Note initiated : 09/21/21 at 1:08 pm Service Date, if different from initiated Date: [] Patient: Philly Magallanes 71 y/o F admitted on 09/19/21 for Stroke symptoms. Chief Complaint: [] Principal diagnosis: weakness Interval history: Ms. Magallanes is a 71 year old F With history of alcohol use, hypertension, anxiety, on chronic benzo therapy, presents to the emergency room yesterday for evaluation of altered mental status. The patient has been having recurrent falls, she had an MRI of bilateral shoulders done which shows complete tear bilateral rotator cuffs, she also has a patellar fracture that was diagnosed a approximately 10 days ago. The patient has been bedbound and it has been difficult for the patient to care for self. At this time it looks like the patient is living with her , with some support, and the caregiver walked in, the patient was confused, and therefore the patient was sent to the emergency room for further evaluation. The patient presented to the emergency room yesterday, initially there was a concern for CVA, head CT was negative, however on subsequent an evaluation it was determined that the patient probably was intoxicated, patient did have an elevated alcohol level of more than 400. The patient lab work showed mild leukocytosis and a UA suggestive of urinary tract infection. She also had elevated lactic acid. The patient was treated with IV fluids, started on CIWA protocol, and IV antibiotics. There was no bed available in the hospital in this facility or in the local [place], therefore an effort was made to transfer the patient to hospital nearby. The patient's family has refused the transfer. And therefore the patient stayed in the ED until a bed opened up here. On my evaluation patient's mental status had improved significantly, she is alert oriented x3, admits to some, constipation, denies any other acute c omplaint or concern. She has pain in her shoulders and the knee, which seems to be chronic. Given the fact that the patient is unable to care for self at home, and concern for alcohol withdrawal along with urinary tract infection patients will be admitted to the hospital for further management 09/20 Patient seen examined, Pt seems mentating ok, no acute complaints or concerns, tolerating po ok Still has discofrot in shoulders and some pain in the knee, did not use the knee immobilizer as advised. CIWA scores 13---5 Ortho consultd for patella fracture and denise shoulder rotator cuff injury, Ad vised outpatient follow up wound care consulted for left buttock decub wound OT/PT eval pending, 09/21 Patient seen examined, sleeing this AM, but woke up. NO acute complaints or concerns CIWA cores 0-12 over last 24 hrs Intermittent Tachycardia, OT/PT eval pending / Wound care eval pending Anticipate d/c to snf in AM Given tachycardia, will check dimer, if significantly elevated consider CTA 09/22 Constitutional Vitals: Vital Signs Temp Pulse Resp BP Pulse Ox 97.8 F 101 H 16 124/76 100 09/21/21 12:00 09/21/21 04:00 09/21/21 12:00 09/21/21 12:00 09/21/21 12:00 Period Temp Pulse Resp BP Sys/Ramírez Pulse Ox Last 24 Hr 97.5 F-100.1 F 100-113 16-20 124-149/64-76 96-100 Intake and Output 09/20/21 09/21/21 09/21/21 21:59 05:59 13:59 Intake Total 480 1600 Output Total 1105 1200 Balance -625 400 Weight 83.461 kg Intake & Output: Intake & Output 09/20/21 09/21/21 09/21/21 21:59 05:59 13:59 Intake Total 480 1600 Output Total 1105 1200 Balance -625 400 Weight 83.461 kg Intake: IV 1000 Dextrose 5%-Lr W/20Meq KCl 1, 1000 000 ml @ 75 mls/hr IV .[id number] [facility] Rx#:[id number] Oral 480 600 Output: Void Amount 1100 1200 # of times incontinent of urine 5 Other: Meal Dinner Percent of Meal Consumed 100% Feeding Ability Independent Urine Appearance Clear Clear Sediment Hematuria Urine Color Bright Red Bright Red Blood Tinged Urine Odor Normal Normal Stool Size Large Moderate Stool Color Brown Brown Stool Consistency Dry and Hard Dry and Hard Exam: General: Alert, Awake, No acute Distress Eyes/N/T: EOMI, Head/Neck: neck supple, CV: RRR, No murmurs, Pulm: Clear b/l, no wheezing/rhonchi/rales Abd: soft, nontender, +BS x4 Ext: no clubbing/cyanosis/edema Neuro: Alert, no focal deficits, moves all extremities, Skin: warm/dry OBJ DATA Labs CBC & Chem 7: 09/21/21 05:24 09/21/21 05:24 Labs: Abnormal Lab Results 09/21/21 09/21/21 09/21/21 08:55 05:24 05:24 RBC 3.56 L MPV 10.9 H Lymph % (Auto) Lymph # (Auto) 1.39 L D-Dimer 3.36 H Carbon Dioxide BUN 6 L Creatinine 0.4 L Glucose 124 H Uric Acid 2.4 L Calcium Phosphorus 2.4 L Lactate Dehydrogenase 229 H TSH Urine Appearance Urine Protein Urine Occult Blood Ur Leukocyte Esterase Urine RBC Urine WBC Amorphous Crystals 09/20/21 09/20/21 09/20/21 05:38 05:38 05:38 RBC 3.55 L MPV 10.8 H Lymph % (Auto) Lymph # (Auto) 1.22 L D-Dimer Carbon Dioxide 21 L BUN Creatinine 0.4 L Glucose 128 H Uric Acid Calcium Phosphorus Lactate Dehydrogenase TSH 7.84 H Urine Appearance Urine Protein Urine Occult Blood Ur Leukocyte Esterase Urine RBC Urine WBC Amorphous Crystals 09/19/21 09/19/21 09/18/21 08:42 08:42 11:51 RBC 3.48 L MPV 10.5 H Lymph % (Auto) 14.2 L Lymph # (Auto) 1.17 L D-Dimer Carbon Dioxide BUN Creatinine 0.4 L Glucose 111 H Uric Acid Calcium 8.2 L Phosphorus Lactate Dehydrogenase TSH Urine Appearance Turbid A Urine Protein >=300 mg/dl A Urine Occult Blood Large A Ur Leukocyte Esterase Large A Urine RBC 74 H Urine WBC 42 H Amorphous Crystals Few A Meds: Medications Acetaminophen (Acetaminophen 325 Mg Tablet) 650 mg PO Q4-6HP PRN; Protocol PRN Reason: Per Pain Protocol Chlordiazepoxide HCl (Chlordiazepoxide 25 Mg Capsule) 25 mg PO Q4-6HP PRN PRN Reason: Alcohol Withdrawal Stop: 09/21/21 19:06 Last Admin: 09/20/21 20:52 Dose: 25 mg Documented by: Docusate Sodium (Docusate Sodium 100 Mg Capsule) 100 mg PO BID [facility] Last Admin: 09/21/21 08:57 Dose: 100 mg Documented by: Enoxaparin Sodium (Enoxaparin 40 Mg/0.4 Ml Syringe) 40 mg SQ DAILY [facility] Last Admin: 09/21/21 08:58 Dose: 40 mg Documented by: Estrogens Conjugated (Estrogens, Conjugated 0.625 Mg Tablet) 0.625 mg PO DAILY [facility] Folic Acid (Folic Acid 1 Mg Tablet) 1 mg PO DAILY [facility] Last Admin: 09/21/21 08:57 Dose: 1 mg Documented by: Ceftriaxone Sodium 2 gm/ (Dextrose) 50 mls @ 100 mls/hr IV Q24H [facility]; Protocol Last Admin: 09/21/21 11:19 Dose: 100 mls/hr Documented by: Potassium Cl/Dextrose/Lact Ringer's (Dextrose 5%-Lr W/20meq Kcl) 1,000 mls @ 75 mls/hr IV .[id number] [facility] Last Admin: 09/21/21 00:09 Dose: 75 mls/hr Documented by: Iron Carb/Multivit/Inspector Salvage/Folic Acid (Multivit,Ther Iron,Ca,Fa & Min 1 Tablet) 1 tab PO [facility] Last Admin: 09/20/21 20:50 Dose: 1 tab Documented by: Levothyroxine Sodium ([facility]othyroxine 100 Mcg Tablet) [facility] Last Admin: 09/21/21 08:58 Dose: 100 mcg Documented by: Lorazepam (Lorazepam 2 Mg/Ml Vial) 1 mg IV Q1HP PRN PRN Reason: ANXIETY/SEDATION Last Admin: 09/21/21 10:08 Dose: 1 mg Documented by: Lorazepam (Lorazepam 0.5 Mg Tablet) 0.5 mg PO DAILYP PRN PRN Reason: Anxiety Last Admin: 09/20/21 09:20 Dose: 0.5 mg Documented by: Losartan Potassium (Losartan 50 Mg Tablet) 100 mg PO DAILY [facility] Last Admin: 09/21/21 08:58 Dose: 100 mg Documented by: Medroxyprogesterone (5 Mg Tablet) 1 dose PO DAILY [facility] Last Admin: 09/21/21 08:59 Dose: Not Given Documented by: Non-Formulary Medication (Silvasorb) 0 film .ROUTE 2-3XW PRN PRN Reason: Increased Blood Pressure Ondansetron HCl (Ondansetron 4 Mg/2 Ml Vial) 4 mg IV Q6HP PRN PRN Reason: Nausea And Vomiting Pantoprazole Sodium (Pantoprazole 40 Mg Tablet) [facility] Last Admin: 09/21/21 08:58 Dose: 40 mg Documented by: Senna (Sennosides 1 Tablet) 2 tab PO HS [facility] Last Admin: 09/20/21 20:50 Dose: 2 tab Documented by: Sodium Chloride (0.9 % Sodium Chloride 10 Ml Syringe) 10 ml IV Q8 [facility] Last Admin: 09/21/21 04:29 Dose: 10 ml Documented by: Thiamine HCl (Thiamine 100 Mg Tablet) 100 mg PO HS [facility] Last Admin: 09/20/21 20:50 Dose: 100 mg Documented by: Tramadol HCl (Tramadol 50 Mg Tablet) 50 mg PO TIDP PRN PRN Reason: Pain Zolpidem Tartrate (Zolpidem 5 Mg Tablet) 10 mg PO QHS PRN PRN Reason: Sleep Last Admin: 09/20/21 20:51 Dose: 10 mg Documented by: A/P Narrative A/P Narrative: A/P: *Alcohol intoxication & W/D: *Metabolic Encephalopathy: suspect a combination of factors including above -clinically stable, head CT is neg, and recent mra is reassuring *severe Sepsis (Present on admission): *UTI(aerococcus): -Roocephin should cover, can be discharged on oral amoxicillin. *Decub ulceration:due to bed bound status -wound care consulted *Frequent falls: etiology? due to etoh? -will get OT/PT eval -will likelyi need placements *Bilateral shoulder rotator cuff injury: seems from previous falls -appreciate ortho input; outpatient ortho follow up *Right knee patella fracture with dislocation: diagnosed on of this month -Ortho consulted, appreciate help, -knee immobilizer, if issues with knee stability, WBAT, Outpatient follow up *DVT: lovenox Time Spent With Patient Time: Total time spent is greater than 50% in coordination of care (as documented) at patient's floor/unit and/or counseling patient: QUALITY Stroke Symptom Onset Unknown: No VTE Deep Vein Thrombosis/Pulmonary Embolism Present on Admission: No
--- NOTE | 2021-09-21 13:17 | Discharge Summary ---
Discharge Provider Provider Patient information: Note initiated : 09/21/21 at 1:16 pm Service Date, if different from initiated Date: [] Patient: Philly Magallanes 71 y/o F admitted on 09/19/21 for Stroke symptoms. Chief Complaint: [] Date of admission: 09/19/21 20:20 Discharge date: 09/25/21 Primary care physician: Reece Galvez Consults: 09/19/21 Consult to Physician [CONS] Stat Comment: wounds on buttock Consulting Provider: Ravindra Casas Reason For Exam: Physician to Consult Consult to Physician [CONS] Stat Comment: Consulting Provider: Marilee Batista Reason For Exam: Physician to Consult 09/19/21 20:45 Consult to Physician [CONS] Routine Comment: Right patella fracture. Consulting Provider: Mika Shields Reason For Exam: Physician to Consult Discharge Meds Discharge Medications Home Medications levothyroxine 100 mcg tablet (Synthroid) 100 mcg PO QDAY 09/19/21 [History Confirmed 09/19/21 Last Taken Unknown] lorazepam 0.5 mg tablet (Ativan) 0.5 mg PO QDAY PRN 09/19/21 [History Confirmed 09/19/21 Last Taken Unknown] losartan 100 mg tablet 100 mg PO QDAY 09/19/21 [History Confirmed 09/19/21 Last Taken Unknown] pantoprazole 40 mg tablet,delayed release (Protonix) 40 mg PO QDAY 09/19/21 [History Confirmed 09/19/21 Last Taken Unknown] tramadol 50 mg tablet 50 mg PO TID PRN 09/19/21 [History Confirmed 09/19/21 Last Taken Unknown] zolpidem 5 mg tablet (Ambien) 10 mg PO QHS PRN 09/19/21 [History Confirmed 09/19/21 Last Taken Unknown] conjugated estrogens 0.9 mg tablet (Premarin) 0.9 mg PO DAILY 09/20/21 [History Confirmed 09/20/21 Last Taken Unknown] medroxyprogesterone 5 mg tablet 5 mg PO QDAY 09/20/21 [History Confirmed 09/20/21 Last Taken Unknown] Paxil 20 mg PO AC #1 tab 09/25/21 [Rx Last Taken Unknown] COURSE Hospital Course Hospital course: Interval history: Ms. Magallanes is a 71 year old F With history of alcohol use, hypertension, anxiety, on chronic benzo therapy, presents to the emergency room yesterday for evaluation of altered mental status. The patient has been having recurrent falls, she had an MRI of bilateral shoulders done which shows complete tear bilateral rotator cuffs, she also has a patellar fracture that was diagnosed a approximately 10 days ago. The patient has been bedbound and it has been difficult for the patient to care for self. At this time it looks like the patient is living with her , with some support, and the caregiver walked in, the patient was confused, and therefore the patient was sent to the emergency room for further evaluation. The patient presented to the emergency room yesterday, initially there was a concern for CVA, head CT was negative, however on subsequent an evaluation it was determined that the patient probably was intoxicated, patient did have an elevated alcohol level of more than 400. The patient lab work showed mild leukocytosis and a UA suggestive of urinary tract infection. She also had elevated lactic acid. The patient was treated with IV fluids, started on CIWA protocol, and IV antibiotics. There was no bed available in the hospital in this facility or in the local [place], therefore an effort was made to transfer the patient to hospital nearby. The patient's family has refused the transfer. And therefore the patient stayed in the ED until a bed opened up here. On my evaluation patient's mental status had improved significantly, she is alert oriented x3, admits to some, constipation, denies any other acute complaint or concern. She has pain in her shoulders and the knee, which seems to be chronic. Given the fact that the patient is unable to care for self at home, and concern for alcohol withdrawal along with urinary tract infection patients will be admitted to the hospital for further management 09/20 Patient seen examined, Pt seems mentating ok, no acute complaints or concerns, tolerating po ok Still has discofrot in shoulders and some pain in the knee, did not use the knee immobilizer as advised. CIWA scores 13---5 Ortho consultd for patella fracture and denise shoulder rotator cuff injury, Advised outpatient follow up wound care consulted for left buttock decub wound OT/PT eval pending, 09/21 Patient seen examined, sleeing this AM, but woke up. NO acute complaints or concerns CIWA cores 0-12 over last 24 hrs Intermittent Tachycardia, OT/PT eval pending / Wound care eval pending Anticipate d/c to snf in AM Given tachycardia, will check dimer, if significantly elevated consider CTA 09/22 No new events overnight or new complaints. Patient feeling well. She states she slept fine. Mild headache. 09/23 Patient seems to be feeling well. No overnight event or new complaints. Awaiting placement. 09/24 No new complaints or overnight events. Awaiting placement. 09/25 No change. Seems to work in a little bit better with PT but still quite weak and does have pain with ambulation from injuries. A/P: *Alcohol intoxication & W/D: *Metabolic Encephalopathy: suspect a combination of factors including above -clinically stable, head CT is neg, and recent mri is reassuring *severe Sepsis: *UTI(aerococcus): Abx finished *Decub ulceration:due to bed bound status -seen by wound care *Frequent falls: etiology? due to etoh? -will get OT/PT eval *Bilateral shoulder rotator cuff injury: seems from previous falls -appreciate ortho input; outpatient ortho follow up *Right knee patella fracture with dislocation: diagnosed on of this month -Ortho consulted, appreciate help, -knee immobilizer, if issues with knee stability, WBAT, Outpatient follow up Discharge diagnosis: Alcohol intoxication and withdrawal metabolic encephalopathy severe sepsis Secondary discharge diagnosis: UTI decubitus ulcer frequent falls bilateral rotator cuff rotator cuff injury right knee patella fracture Time Spent with Patient Time attestation: Total time spent providing and/or coordinating discharge services: Time spent: Greater than 30 minutes EXAM Constitutional Vitals: Temp Pulse Resp BP Pulse Ox 97.8 F 101 H 16 124/76 100 09/21/21 12:00 09/21/21 04:00 09/21/21 12:00 09/21/21 12:00 09/21/21 12:00 Discharge Data Data Completed and Pending Labs on day of discharge: Labs from last 24 hours 09/21/21 09/21/21 09/21/21 08:55 05:24 05:24 WBC 7.2 RBC 3.56 L Hgb 11.3 Hct 35.4 MCV 99.4 MCH 31.7 MCHC 31.9 RDW 12.9 Plt Count 220 MPV 10.9 H Neut % (Auto) 67.1 Lymph % (Auto) 19.4 Murray % (Auto) 8.9 Eos % (Auto) 4.2 Baso % (Auto) 0.4 Lymph # (Auto) 1.39 L Murray # (Auto) 0.64 Eos # (Auto) 0.30 Baso # (Auto) 0.03 Absolute Neutrophils 4.81 D-Dimer 3.36 H Sodium 134 Potassium 3.8 Chloride 101 Carbon Dioxide 22 Anion Gap 11.0 BUN 6 L Creatinine 0.4 L GFR Calculation 105 Glucose 124 H Uric Acid 2.4 L Calcium 9.0 Phosphorus 2.4 L Magnesium 1.7 Total Bilirubin 0.3 Direct Bilirubin < 0.2 GGT 15 AST 19 ALT 15 Alkaline Phosphatase 77 Lactate Dehydrogenase 229 H Total Protein 6.0 Albumin 3.3 Globulin 2.7 Albumin/Globulin Ratio 1.2 Triglycerides 106 Preliminary micro results at discharge 09/18/21 14:20 Blood Culture - Preliminary Blood 09/18/21 14:14 Blood Culture - Preliminary Blood Discharge Plan Patient/Caregiver Discharge Instructions Activity: increase activity as tolerated Diet: Regular Diet Prescriptions: Continued tramadol 50 mg Tablet 50 mg PO TID PRN (Reason: Pain) 0RF levothyroxine [Synthroid] 100 mcg Tablet 100 mcg PO QDAY 0RF lorazepam [Ativan] 0.5 mg Tablet 0.5 mg PO QDAY PRN (Reason: Anxiety) 0RF pantoprazole [Protonix] 40 mg Tablet,Delayed Release (Dr/Ec) 40 mg PO QDAY 0RF zolpidem [Ambien] 5 mg Tablet 10 mg PO QHS PRN (Reason: Sleep) 0RF losartan 100 mg Tablet 100 mg PO QDAY 0RF medroxyprogesterone 5 mg Tablet 5 mg PO QDAY 0RF Premarin 0.9 mg Tablet 0.9 mg PO DAILY 0RF Changed Paxil 20 mg PO AC Qty: 1 0RF Follow Up Plan Follow up with: Mika Shields MD [Physician] - Reece Galvez DO [Primary Care Provider] - Patient Disposition: Xfer SNF Prognosis: Fair Rehab Potential: Fair I certify that the patient requires SNF services: Yes Overall status at discharge: patient is progressing back to baseline Discharge Orders: Discharge Order (Routine); Ordered 09/25/21 Ordered By: Sal[place] Medina [facility] VTE Deep Vein Thrombosis/Pulmonary Embolism Present on Admission: No
--- NOTE | 2021-09-21 14:12 | Cat Scan Report ---
CLINICAL INFORMATION: Chest pain COMPARISON: None. TECHNIQUE: 80ml of Isovue-370 were injected intravenously. Using SmartPrep to maximize pulmonary artery opacification, .625mm helical slices were obtained from the lung apices through the lung bases. Following reconstruction, 2.5 mm sagittal, coronal, and axial reformations were processed. The exam was reviewed at mediastinal, lung, and bone windows. The exam was performed using radiation dose optimization techniques including, but not limited to, automated exposure control, adjustment of the mA and/or kV according to patient size and use of iterative reconstruction technique. FINDINGS: Pulmonary parenchymal windows show a moderate patchy alveolar infiltrate in the posterior segment of the right upper lobe and a small infiltrate in superior segment of the right lower lobe. There are no solid or groundglass nodules.. Pleural spaces are unremarkable-no effusions. Mediastinal windows show the heart is mildly enlarged with left ventricular hypertrophy and aortic valve calcification. Scattered calcific plaque present in the coronary arteries.. The pulmonary arteries are normal diameter. The pulmonary arteries are suboptimally classified, however there is no gross evidence of central embolus.. Thoracic aorta is also normal diameter and well-opacified. There is no adenopathy in the mediastinal, hilar or axillary regions. Small hiatal hernia noted.. The thyroid is diminutive without focal lesion. Large effusion in the left glenohumeral joint with 3-4 small loose bodies in the anterior aspect of the effusion. Calcifications within the belly of the the deltoid muscle.. Images through the superior abdomen are unremarkable. IMPRESSION: 1. No evidence of pulmonary embolus. Suboptimal pulmonary artery opacification 2. Moderate infiltrate posterior segment right upper lobe. Small infiltrate in the adjacent transverse segment right lower lobe. Suspect pneumonia. 3. Mild underlying chronic bronchitis or asthma 4. Mild cardiomegaly with left ventricular hypertrophy and aortic valve calcification. This may be stigmata of systemic hypertension or aortic valve disease. 5. Small hiatal hernia. 6. Large left glenohumeral effusion with a few small loose bodies in the anterior aspect of the effusion.. Calcification of the deltoid muscle may represent myositis ossificans 7. diminutive thyroid. Please correlate with TSH Interpreted and Authenticated by: Horacio Rushing 09/21/21
[2021-09-21] MEDS: chlordiazePOXIDE 25 MG CAPSULE PO PRN (19:04)
[2021-09-21] MEDS: ZOLPIDEM 5 MG TABLET PO PRN (19:49)
[2021-09-21] MEDS: SENNOSIDES 1 TABLET PO SCH (19:54)
[2021-09-21] MEDS: MULTIVIT,THER IRON,CA,FA & MIN 1 TABLET PO SCH (19:54)
[2021-09-21] MEDS: THIAMINE 100 MG TABLET PO SCH (19:54)
[2021-09-21] MEDS ORDERED: LORazepam 2 MG/ML VIAL ONE ×2 (21:09→21:10)
[2021-09-21] MEDS: traMADol 50 MG TABLET PO PRN (22:14)
[2021-09-22] MEDS: 0.9 % SODIUM CHLORIDE 10 ML SYRINGE IV SCH ×3 (05:39→20:46)
[2021-09-22 07:12] LABS: Basophils # (Auto) 0.05 K/mcL (0.00-0.30); Basophils % (Auto) 0.7 % (0.0-2.0); Eosinophils # (Auto) 0.41 K/mcL (0.00-0.70); Eosinophils % (Auto) 6.1 % (0.0-7.0); Hematocrit 40.4 % (34.1-44.9); Hemoglobin 12.8 g/dL (11.2-15.7); Lymphocytes # (Auto) 1.74 K/mcL (1.50-4.80); Lymphocytes % (Auto) 25.9 % (15.5-49.0); Mean Cell Volume 100.7 fL (80.0-100.0); Mean Corpuscular HGB Conc 31.7 g/dL (31.0-36.0); Mean Platelet Volume 10.7 fL (7.4-10.4); Monocytes # (Auto) 0.68 K/mcL (0.10-0.90); Monocytes % (Auto) 10.1 % (1.0-12.0); Neutrophils % (Auto) 57.2 % (38.0-78.0); Platelet Count 219 K/mcL (140-440); RBC 4.01 M/mcL (3.59-5.38); Red Cell Distribution Width 13.1 % (11.5-14.5); WBC 6.7 K/mcL (4.5-11.0)
--- NOTE | 2021-09-22 07:47 | Internal Med Progress Note ---
SUBJECTIVE Subjective Patient information: Note initiated : 09/22/21 at 7:46 am Service Date, if different from initiated Date: [] Patient: Philly Magallanes 71 y/o F admitted on 09/19/21 for Stroke symptoms. Chief Complaint: [] Principal diagnosis: weakness Interval history: Ms. Magallanes is a 71 year old F With history of alcohol use, hypertension, anxiety, on chronic benzo therapy, presents to the emergency room yesterday for evaluation of altered mental status. The patient has been having recurrent falls, she had an MRI of bilateral shoulders done which shows complete tear bilateral rotator cuffs, she also has a patellar fracture that was diagnosed a approximately 10 days ago. The patient has been bedbound and it has been difficult for the patient to care for self. At this time it looks like the patient is living with her , with some support, and the caregiver walked in, the patient was confused, and therefore the patient was sent to the emergency room for further evaluation. The patient presented to the emergency room yesterday, initially there was a concern for CVA, head CT was negative, however on subsequent an evaluation it was determined that the patient probably was intoxicated, patient did have an elevated alcohol level of more than 400. The patient lab work showed mild leukocytosis and a UA suggestive of urinary tract infection. She also had elevated lactic acid. The patient was treated with IV fluids, started on CIWA protocol, and IV antibiotics. There was no bed available in the hospital in this facility or in the local [place], therefore an effort was made to transfer the patient to hospital nearby. The patient's family has refused the transfer. And therefore the patient stayed in the ED until a bed opened up here. On my evaluation patient's mental status had improved significantly, she is alert oriented x3, admits to some, constipation, denies any other acute c omplaint or concern. She has pain in her shoulders and the knee, which seems to be chronic. Given the fact that the patient is unable to care for self at home, and concern for alcohol withdrawal along with urinary tract infection patients will be admitted to the hospital for further management 09/20 Patient seen examined, Pt seems mentating ok, no acute complaints or concerns, tolerating po ok Still has discofrot in shoulders and some pain in the knee, did not use the knee immobilizer as advised. CIWA scores 13---5 Ortho consultd for patella fracture and denise shoulder rotator cuff injury, Ad vised outpatient follow up wound care consulted for left buttock decub wound OT/PT eval pending, 09/21 Patient seen examined, sleeing this AM, but woke up. NO acute complaints or concerns CIWA cores 0-12 over last 24 hrs Intermittent Tachycardia, OT/PT eval pending / Wound care eval pending Anticipate d/c to snf in AM Given tachycardia, will check dimer, if significantly elevated consider CTA 09/22 No new events overnight or new complaints. Patient feeling well. She states she slept fine. Mild headache. Review of Systems: denies headache/fever/chills/nausea/vomiting/chest or abdominal pain/cough/dyspnea/diarrhea. Otherwise see above. Awaiting placement. Constitutional Vitals: Vital Signs Temp Pulse Resp BP Pulse Ox 98.7 F 96 H 22 135/71 97 09/22/21 04:00 09/22/21 04:00 09/22/21 04:00 09/22/21 04:00 09/22/21 04:00 Period Temp Pulse Resp BP Sys/Ramírez Pulse Ox Last 24 Hr 97.0 F-98.7 F 92-96 16-22 124-143/71-85 97-100 Intake and Output 09/21/21 09/22/21 09/22/21 21:59 05:59 13:59 Intake Total 660 820 Output Total 1400 4 Balance -740 816 Weight 85.786 kg Intake & Output: Intake & Output 09/21/21 09/22/21 09/22/21 21:59 05:59 13:59 Intake Total 660 820 Output Total 1400 4 Balance -740 816 Weight 85.786 kg Intake: Oral 660 820 Output: Void Amount 1400 # of times incontinent of urine 4 Other: Meal Dinner Percent of Meal Consumed 100% Stool Size Moderate Stool Color Brown Stool Consistency Soft # of times incontinent of 1 Bowels Exam: General: Alert, Awake, No acute Distress Eyes/N/T: EOMI, Head/Neck: neck supple, CV: RRR, No murmurs, Pulm: Clear b/l, no wheezing/rhonchi/rales Abd: soft, nontender, +BS x4 Ext: no clubbing/cyanosis/edema Neuro: Alert, no focal deficits, moves all extremities, Skin: warm/dry OBJ DATA Labs CBC & Chem 7: 09/22/21 05:50 09/22/21 05:50 Labs: Abnormal Lab Results 09/22/21 09/21/21 09/21/21 05:50 08:55 05:24 RBC MCV 100.7 H MPV 10.7 H Lymph % (Auto) Lymph # (Auto) D-Dimer 3.36 H Carbon Dioxide BUN 6 L Creatinine 0.4 L Glucose 124 H Uric Acid 2.4 L Calcium Phosphorus 2.4 L Lactate Dehydrogenase 229 H TSH 09/21/21 09/20/21 09/20/21 05:24 05:38 05:38 RBC 3.56 L MCV MPV 10.9 H Lymph % (Auto) Lymph # (Auto) 1.39 L D-Dimer Carbon Dioxide 21 L BUN Creatinine 0.4 L Glucose 128 H Uric Acid Calcium Phosphorus Lactate Dehydrogenase TSH 7.84 H 09/20/21 09/19/21 09/19/21 05:38 08:42 08:42 RBC 3.55 L 3.48 L MCV MPV 10.8 H 10.5 H Lymph % (Auto) 14.2 L Lymph # (Auto) 1.22 L 1.17 L D-Dimer Carbon Dioxide BUN Creatinine 0.4 L Glucose 111 H Uric Acid Calcium 8.2 L Phosphorus Lactate Dehydrogenase TSH Meds: Medications Acetaminophen (Acetaminophen 325 Mg Tablet) 650 mg PO Q4-6HP PRN; Protocol PRN Reason: Per Pain Protocol Docusate Sodium (Docusate Sodium 100 Mg Capsule) 100 mg PO BID [facility] Last Admin: 09/21/21 19:53 Dose: 100 mg Documented by: Enoxaparin Sodium (Enoxaparin 40 Mg/0.4 Ml Syringe) 40 mg SQ DAILY [facility] Last Admin: 09/21/21 08:58 Dose: 40 mg Documented by: Estrogens Conjugated (Estrogens, Conjugated 0.625 Mg Tablet) 0.625 mg PO DAILY [facility] Folic Acid (Folic Acid 1 Mg Tablet) 1 mg PO DAILY [facility] Last Admin: 09/21/21 08:57 Dose: 1 mg Documented by: Ceftriaxone Sodium 2 gm/ (Dextrose) 50 mls @ 100 mls/hr IV Q24H [facility]; Protocol Last Infusion: 09/21/21 11:50 Dose: Infused Documented by: Potassium Cl/Dextrose/Lact Ringer's (Dextrose 5%-Lr W/20meq Kcl) 1,000 mls @ 75 mls/hr IV .[id number] [facility] Last Admin: 09/21/21 23:49 Dose: Not Given Documented by: Iron Carb/Multivit/[place]/Folic Acid (Multivit,Ther Iron,Ca,Fa & Min 1 Tablet) 1 tab PO [facility] Last Admin: 09/21/21 19:54 Dose: 1 tab Documented by: Levothyroxine Sodium (Levothyroxine 100 Mcg Tablet) 100 mcg PO [facility] Last Admin: 09/21/21 08:58 Dose: 100 mcg Documented by: Lorazepam (Lorazepam 0.5 Mg Tablet) 0.5 mg PO DAILYP PRN PRN Reason: Anxiety Last Admin: 09/20/21 09:20 Dose: 0.5 mg Documented by: Lorazepam (Lorazepam 2 Mg/Ml Vial) 1 mg IV Q1HP PRN; Protocol PRN Reason: Alcohol Withdrawal Last Admin: 09/21/21 21:17 Dose: 1 mg Documented by: Losartan Potassium (Losartan 50 Mg Tablet) 100 mg PO DAILY [facility] Last Admin: 09/21/21 08:58 Dose: 100 mg Documented by: Medroxyprogesterone (5 Mg Tablet) 1 dose PO DAILY [facility] Last Admin: 09/21/21 08:59 Dose: Not Given Documented by: Non-Formulary Medication (Silvasorb) 0 film .ROUTE 2-3XW PRN PRN Reason: Increased Blood Pressure Ondansetron HCl (Ondansetron 4 Mg/2 Ml Vial) 4 mg IV Q6HP PRN PRN Reason: Nausea And Vomiting Pantoprazole Sodium ([facility] 40 Mg Tablet) [facility] Last Admin: 09/21/21 08:58 Dose: 40 mg Documented by: Senna (Sennosides 1 Tablet) 2 tab PO [facility] Last Admin: 09/21/21 19:54 Dose: Not Given Documented by: Sodium Chloride (0.9 % Sodium Chloride 10 Ml Syringe) 10 ml IV Q8 [facility] Last Admin: 09/22/21 05:39 Dose: Not Given Documented by: Thiamine HCl (Thiamine 100 Mg Tablet) 100 mg PO [facility] Last Admin: 09/21/21 19:54 Dose: 100 mg Documented by: Tramadol HCl (Tramadol 50 Mg Tablet) 50 mg PO TIDP PRN PRN Reason: Pain Last Admin: 09/21/21 22:14 Dose: 50 mg Documented by: Zolpidem Tartrate (Zolpidem 5 Mg Tablet) 10 mg PO QHS PRN PRN Reason: Sleep Last Admin: 09/21/21 19:49 Dose: 10 mg Documented by: A/P Narrative A/P Narrative: A/P: *Alcohol intoxication & W/D: *Metabolic Encephalopathy: suspect a combination of factors including above -clinically stable, head CT is neg, and recent mra is reassuring *severe Sepsis (Present on admission): *UTI(aerococcus): -Rocephin should cover *Decub ulceration:due to bed bound status -wound care consulted *Frequent falls: etiology? due to etoh? -will get OT/PT eval -will likely need placements *Bilateral shoulder rotator cuff injury: seems from previous falls -appreciate ortho input; outpatient ortho follow up *Right knee patella fracture with dislocation: diagnosed on of this month -Ortho consulted, appreciate help, -knee immobilizer, if issues with knee stability, WBAT, Outpatient follow up *DVT: lovenox Time Spent With Patient Time: Total time spent is greater than 50% in coordination of care (as documented) at patient's floor/unit and/or counseling patient: QUALITY Stroke Symptom Onset Unknown: No VTE Deep Vein Thrombosis/Pulmonary Embolism Present on Admission: No
[2021-09-22 07:57] LABS: ALT/SGPT 16 U/L (<40); AST/SGOT 20 U/L (<32); Albumin 3.8 gm/dL (3.2-5.2); Albumin/Globulin Ratio 1.6 (1.0-2.3); Alkaline Phosphatase 81 U/L (39-117); Bilirubin,Direct < 0.2 mg/dL (0-0.3); Bilirubin,Total 0.3 mg/dL (0.1-1.0); Blood Urea Nitrogen 7 mg/dL (8-23); Calcium 9.1 mg/dL (8.6-10.4); Carbon Dioxide 20 mmol/L (22-30); Chloride 98 mmol/L (96-108); Globulin 2.4 gm/dL (2.2-3.7); Glomerular Filtration Rate 98; Glucose 126 mg/dL (70-105); Lactate Dehydrogenase 277 U/L (135-225); Triglycerides 144 mg/dL (<150); Uric Acid 2.7 mg/dL (2.5-8.0)
[2021-09-22] MEDS ORDERED: FUROSEMIDE 20 MG/2 ML VIAL IV ONE (08:34)
[2021-09-22] MEDS: cefTRIAXone 2 GM in DEXTROSE 5% IN WATER 50 ML IV SCH (08:50)
[2021-09-22] MEDS: DOCUSATE SODIUM 100 MG CAPSULE PO SCH ×2 (08:51→20:44)
[2021-09-22] MEDS: FOLIC ACID 1 MG TABLET PO SCH (08:51)
[2021-09-22] MEDS: LEVOTHYROXINE 100 MCG TABLET PO SCH (08:51)
[2021-09-22] MEDS: LOSARTAN 50 MG TABLET PO SCH (08:52)
[2021-09-22] MEDS: PANTOPRAZOLE 40 MG TABLET PO SCH (08:52)
[2021-09-22] MEDS: ENOXAPARIN 40 MG/0.4 ML SYRINGE SQ SCH (08:52)
[2021-09-22] MEDS: medroxyPROGESTERone 5 MG TABLET PO SCH (08:54)
[2021-09-22] MEDS: ESTROGENS, CONJUGATED 0.625 MG TABLET PO SCH (08:54)
[2021-09-22] MEDS: LORazepam 0.5 MG TABLET PO PRN (08:54)
[2021-09-22] MEDS: LORazepam 2 MG/ML VIAL IV PRN ×3 (11:21→20:44)
[2021-09-22] MEDS: traMADol 50 MG TABLET PO PRN ×3 (11:46→23:33)
[2021-09-22] MEDS: ACETAMINOPHEN 325 MG TABLET PO PRN (18:48)
[2021-09-22] MEDS: ZOLPIDEM 5 MG TABLET PO PRN (18:48)
[2021-09-22] MEDS: MULTIVIT,THER IRON,CA,FA & MIN 1 TABLET PO SCH (20:44)
[2021-09-22] MEDS: THIAMINE 100 MG TABLET PO SCH (20:44)
[2021-09-22] MEDS: SENNOSIDES 1 TABLET PO SCH (20:45)
[2021-09-23] MEDS: 0.9 % SODIUM CHLORIDE 10 ML SYRINGE IV SCH ×4 (03:37→20:22)
[2021-09-23] MEDS: LORazepam 2 MG/ML VIAL IV PRN ×3 (03:38→19:43)
[2021-09-23] MEDS: ACETAMINOPHEN 325 MG TABLET PO PRN ×4 (03:38→19:42)
[2021-09-23] MEDS: traMADol 50 MG TABLET PO PRN ×3 (04:55→17:46)
[2021-09-23] MEDS: PANTOPRAZOLE 40 MG TABLET PO SCH (07:23)
[2021-09-23] MEDS: LEVOTHYROXINE 100 MCG TABLET PO SCH (07:23)
[2021-09-23 08:02] LABS: Basophils # (Auto) 0.03 K/mcL (0.00-0.30); Basophils % (Auto) 0.5 % (0.0-2.0); Eosinophils # (Auto) 0.33 K/mcL (0.00-0.70); Eosinophils % (Auto) 5.2 % (0.0-7.0); Hematocrit 34.7 % (34.1-44.9); Hemoglobin 11.1 g/dL (11.2-15.7); Lymphocytes # (Auto) 1.53 K/mcL (1.50-4.80); Lymphocytes % (Auto) 24.1 % (15.5-49.0); Monocytes # (Auto) 0.72 K/mcL (0.10-0.90); Monocytes % (Auto) 11.4 % (1.0-12.0); Neutrophils % (Auto) 58.8 % (38.0-78.0); Platelet Count 240 K/mcL (140-440); RBC 3.47 M/mcL (3.59-5.38); Red Cell Distribution Width 13.5 % (11.5-14.5); WBC 6.3 K/mcL (4.5-11.0)
--- NOTE | 2021-09-23 08:07 | Internal Med Progress Note ---
SUBJECTIVE Subjective Patient information: Note initiated : 09/23/21 at 8:05 am Service Date, if different from initiated Date: [] Patient: Philly Magallanes 71 y/o F admitted on 09/19/21 for Stroke symptoms. Chief Complaint: [] Principal diagnosis: weakness Interval history: Principal diagnosis: weakness Interval history: Ms. Magallanes is a 71 year old F With history of alcohol use, hypertension, anxiety, on chronic benzo therapy, presents to the emergency room yesterday for evaluation of altered mental status. The patient has been having recurrent falls, she had an MRI of bilateral shoulders done which shows complete tear bilateral rotator cuffs, she also has a patellar fracture that was diagnosed a approximately 10 days ago. The patient has been bedbound and it has been difficult for the patient to care for self. At this time it looks like the patient is living with her , with some support, and the caregiver walked in, the patient was confused, and therefore the patient was sent to the emergency room for further evaluation. The patient presented to the emergency room yesterday, initially there was a concern for CVA, head CT was negative, however on subsequent an evaluation it was determined that the patient probably was intoxicated, patient did have an elevated alcohol level of more than 400. The patient lab work showed mild leukocytosis and a UA suggestive of urinary tract infection. She also had elevated lactic acid. The patient was treated with IV fluids, started on CIWA protocol, and IV antibiotics. There was no bed available in the hospital in this facility or in the local [place], therefore an effort was made to transfer the patient to hospital nearby. The patient's family has refused the transfer. And therefore the patient stayed in the ED until a bed opened up here. On my evaluation patient's mental status had improved significantly, she is alert oriented x3, admits to some, constipation, denies any other acute complaint or concern. She has pain in her shoulders and the knee, which seems to be chronic. Given the fact that the patient is unable to care for self at home, and concern for alcohol withdrawal along with urinary tract infection patients will be adm itted to the hospital for further management 09/20 Patient seen examined, Pt seems mentating ok, no acute complaints or concerns, tolerating po ok Still has discofrot in shoulders and some pain in the knee, did not use the knee immobilizer as advised. CIWA scores 13---5 Ortho consultd for patella fracture and denise shoulder rotator cuff injury, Advised outpatient follow up wound care consulted for left buttock decub wound OT/PT eval pending, 09/21 Patient seen examined, sleeing this AM, but woke up. NO acute complaints or concerns CIWA cores 0-12 over last 24 hrs Intermittent Tachycardia, OT/PT eval pending / Wound care eval pending Anticipate d/c to snf in AM Given tachycardia, will check dimer, if significantly elevated consider CTA 09/22 No new events overnight or new complaints. Patient feeling well. She states she slept fine. Mild headache. 09/23 Patient seems to be feeling well. No overnight event or new complaints. Awaiting placement. Review of Systems: denies headache/fever/chills/nausea/vomiting/chest or abdominal pain/cough/dyspnea/diarrhea. Otherwise see above. Constitutional Vitals: Vital Signs Temp Pulse Resp BP Pulse Ox 97.1 F 91 H 12 138/71 96 09/23/21 04:06 09/23/21 04:06 09/23/21 04:06 09/23/21 04:06 09/23/21 04:06 Period Temp Pulse Resp BP Sys/Ramírez Pulse Ox Last 24 Hr 97 F-97.9 F 91-114 12-20 116-138/57-73 96-98 Intake and Output 09/22/21 09/23/21 09/23/21 21:59 05:59 13:59 Intake Total 600 600 Output Total 1 600 Balance 599 0 Weight 85.23 kg Intake & Output: Intake & Output 09/22/21 09/23/21 09/23/21 21:59 05:59 13:59 Intake Total 600 600 Output Total 1 600 Balance 599 0 Weight 85.23 kg Intake: Oral 600 600 Output: Void Amount 600 # of times incontinent of urine 1 Other: Urine Appearance Sediment Urine Color Dark Yellow Urine Odor Strong Exam: General: Alert, Awake, No acute Distress Eyes/N/T: EOMI, Head/Neck: neck supple, CV: RRR, No murmurs, Pulm: Clear b/l, no wheezing/rhonchi/rales Abd: soft, nontender, +BS x4 Ext: no clubbing/cyanosis/edema Neuro: Alert, no focal deficits, moves all extremities, Skin: warm/dry OBJ DATA Labs CBC & Chem 7: 09/23/21 07:16 09/23/21 07:16 Labs: Abnormal Lab Results 09/23/21 09/22/21 09/22/21 07:16 05:50 05:50 RBC 3.47 L Hgb 11.1 L MCV 100.7 H MPV 10.7 H Lymph # (Auto) D-Dimer Sodium 132 L Carbon Dioxide 20 L BUN 7 L Creatinine 0.5 L Glucose 126 H Uric Acid Phosphorus Lactate Dehydrogenase 277 H TSH 09/21/21 09/21/21 09/21/21 08:55 05:24 05:24 RBC 3.56 L Hgb MCV MPV 10.9 H Lymph # (Auto) 1.39 L D-Dimer 3.36 H Sodium Carbon Dioxide BUN 6 L Creatinine 0.4 L Glucose 124 H Uric Acid 2.4 L Phosphorus 2.4 L Lactate Dehydrogenase 229 H TSH 09/20/21 09/20/21 05:38 05:38 RBC Hgb MCV MPV Lymph # (Auto) D-Dimer Sodium Carbon Dioxide 21 L BUN Creatinine 0.4 L Glucose 128 H Uric Acid Phosphorus Lactate Dehydrogenase TSH 7.84 H Meds: Medications Acetaminophen (Acetaminophen 325 Mg Tablet) 650 mg PO Q4-6HP PRN; Protocol PRN Reason: Per Pain Protocol Last Admin: 09/23/21 03:38 Dose: 650 mg Documented by: Docusate Sodium (Docusate Sodium 100 Mg Capsule) 100 mg PO BID [facility] Last Admin: 09/22/21 20:44 Dose: 100 mg Documented by: Enoxaparin Sodium (Enoxaparin 40 Mg/0.4 Ml Syringe) 40 mg SQ DAILY [facility] Last Admin: 09/22/21 08:52 Dose: 40 mg Documented by: Estrogens Conjugated (Estrogens, Conjugated 0.625 Mg Tablet) 0.625 mg PO DAILY [facility] Last Admin: 09/22/21 08:54 Dose: 0.625 mg Documented by: Folic Acid (Folic Acid 1 Mg Tablet) 1 mg PO DAILY [facility] Last Admin: 09/22/21 08:51 Dose: 1 mg Documented by: Ceftriaxone Sodium 2 gm/ (Dextrose) 50 mls @ 100 mls/hr IV Q24H [facility]; Protocol Last Infusion: 09/22/21 09:20 Dose: Infused Documented by: Iron Carb/Multivit/[employer]/Folic Acid (Multivit,Ther Iron,Ca,Fa & Min 1 Tablet) 1 tab PO [facility] Last Admin: 09/22/21 20:44 Dose: 1 tab Documented by: Levothyroxine Sodium (Levothyroxine 100 Mcg Tablet) 100 mcg PO QAMAC [facility] Last Admin: 09/23/21 07:23 Dose: 100 mcg Documented by: Lorazepam (Lorazepam 0.5 Mg Tablet) 0.5 mg PO DAILYP PRN PRN Reason: Anxiety Last Admin: 09/22/21 08:54 Dose: 0.5 mg Documented by: Lorazepam (Lorazepam 2 Mg/Ml Vial) 1 mg IV Q1HP PRN; Protocol PRN Reason: Alcohol Withdrawal Last Admin: 09/22/21 20:44 Dose: 1 mg Documented by: Lorazepam (Lorazepam 2 Mg/Ml Vial) 0 mg IV Q2HP PRN PRN Reason: ANXIETY/SEDATION Last Admin: 09/23/21 03:38 Dose: 1 mg Documented by: Losartan Potassium (Losartan 50 Mg Tablet) 100 mg PO DAILY [facility] Last Admin: 09/22/21 08:52 Dose: 100 mg Documented by: Medroxyprogesterone (5 Mg Tablet) 1 dose PO DAILY [facility] Last Admin: 09/22/21 08:54 Dose: 1 dose Documented by: Ondansetron HCl (Ondansetron 4 Mg/2 Ml Vial) 4 mg IV Q6HP PRN PRN Reason: Nausea And Vomiting Pantoprazole Sodium ([facility] 40 Mg Tablet) [facility] Last Admin: 09/23/21 07:23 Dose: 40 mg Documented by: Senna (Sennosides 1 Tablet) 2 tab PO [facility] Last Admin: 09/22/21 20:45 Dose: 2 tab Documented by: Sodium Chloride (0.9 % Sodium Chloride 10 Ml Syringe) 10 ml IV Q8 [facility] Last Admin: 09/23/21 04:22 Dose: 10 ml Documented by: Thiamine HCl (Thiamine 100 Mg Tablet) 100 mg PO [facility] Last Admin: 09/22/21 20:44 Dose: 100 mg Documented by: Tramadol HCl (Tramadol 50 Mg Tablet) 50 mg PO TIDP PRN PRN Reason: Pain Last Admin: 09/23/21 04:55 Dose: 50 mg Documented by: Zolpidem Tartrate (Zolpidem 5 Mg Tablet) 10 mg PO QHS PRN PRN Reason: Sleep Last Admin: 09/22/21 18:48 Dose: 10 mg Documented by: A/P Narrative A/P Narrative: A/P: *Alcohol intoxication & W/D: improved *Metabolic Encephalopathy: suspect a combination of factors including above. Improved -clinically stable, head CT is neg, and recent mra is reassuring *severe Sepsis (Present on admission): *UTI(aerococcus): -Rocephin *Decub ulceration:due to bed bound status -wound care consulted *Frequent falls: etiology? due to etoh? -will get OT/PT eval -will likely need placements *Bilateral shoulder rotator cuff injury: seems from previous falls -appreciate ortho input; outpatient ortho follow up *Right knee patella fracture with dislocation: diagnosed on of this month -Ortho consulted, appreciate help, -knee immobilizer, if issues with knee stability, WBAT, Outpatient follow up *DVT: lovenox Time Spent With Patient Time: Total time spent is greater than 50% in coordination of care (as documented) at patient's floor/unit and/or counseling patient: QUALITY Stroke Symptom Onset Unknown: No VTE Deep Vein Thrombosis/Pulmonary Embolism Present on Admission: No
[2021-09-23 08:26] LABS: ALT/SGPT 17 U/L (<40); AST/SGOT 20 U/L (<32); Albumin 3.3 gm/dL (3.2-5.2); Albumin/Globulin Ratio 1.3 (1.0-2.3); Alkaline Phosphatase 68 U/L (39-117); Bilirubin,Direct < 0.2 mg/dL (0-0.3); Bilirubin,Total 0.2 mg/dL (0.1-1.0); Blood Urea Nitrogen 9 mg/dL (8-23); Calcium 8.8 mg/dL (8.6-10.4); Carbon Dioxide 24 mmol/L (22-30); Chloride 98 mmol/L (96-108); Globulin 2.5 gm/dL (2.2-3.7); Glomerular Filtration Rate 105; Glucose 112 mg/dL (70-105); Lactate Dehydrogenase 186 U/L (135-225); Phosphorous 3.4 mg/dL (2.5-4.5); Triglycerides 112 mg/dL (<150); Uric Acid 3.5 mg/dL (2.5-8.0)
[2021-09-23] MEDS: DOCUSATE SODIUM 100 MG CAPSULE PO SCH ×2 (08:43→20:19)
[2021-09-23] MEDS: FOLIC ACID 1 MG TABLET PO SCH (08:43)
[2021-09-23] MEDS: LOSARTAN 50 MG TABLET PO SCH (08:43)
[2021-09-23] MEDS: LORazepam 0.5 MG TABLET PO PRN (08:43)
[2021-09-23] MEDS: ENOXAPARIN 40 MG/0.4 ML SYRINGE SQ SCH (08:44)
[2021-09-23] MEDS: medroxyPROGESTERone 5 MG TABLET PO SCH (08:49)
[2021-09-23] MEDS: cefTRIAXone 2 GM in DEXTROSE 5% IN WATER 50 ML IV SCH (08:49)
[2021-09-23] MEDS: ESTROGENS, CONJUGATED 0.625 MG TABLET PO SCH (08:50)
[2021-09-23] MEDS: THIAMINE 100 MG TABLET PO SCH (20:19)
[2021-09-23] MEDS: ZOLPIDEM 5 MG TABLET PO PRN (20:19)
[2021-09-23] MEDS: SENNOSIDES 1 TABLET PO SCH (20:19)
[2021-09-23] MEDS: MULTIVIT,THER IRON,CA,FA & MIN 1 TABLET PO SCH (20:19)
[2021-09-24] MEDS: ACETAMINOPHEN 325 MG TABLET PO PRN ×3 (00:52→12:54)
[2021-09-24] MEDS: traMADol 50 MG TABLET PO PRN ×2 (00:52→08:55)
[2021-09-24] MEDS: LORazepam 2 MG/ML VIAL IV PRN ×5 (02:48→19:04)
[2021-09-24] MEDS: 0.9 % SODIUM CHLORIDE 10 ML SYRINGE IV SCH ×3 (04:56→20:29)
[2021-09-24 06:39] LABS: Basophils # (Auto) 0.04 K/mcL (0.00-0.30); Basophils % (Auto) 0.7 % (0.0-2.0); Eosinophils # (Auto) 0.32 K/mcL (0.00-0.70); Eosinophils % (Auto) 5.3 % (0.0-7.0); Hematocrit 33.4 % (34.1-44.9); Hemoglobin 10.6 g/dL (11.2-15.7); Lymphocytes # (Auto) 1.66 K/mcL (1.50-4.80); Lymphocytes % (Auto) 27.5 % (15.5-49.0); Mean Cell Volume 100.3 fL (80.0-100.0); Mean Corpuscular HGB Conc 31.7 g/dL (31.0-36.0); Mean Platelet Volume 10.2 fL (7.4-10.4); Monocytes # (Auto) 0.88 K/mcL (0.10-0.90); Monocytes % (Auto) 14.6 % (1.0-12.0); Neutrophils % (Auto) 51.9 % (38.0-78.0); Platelet Count 244 K/mcL (140-440); RBC 3.33 M/mcL (3.59-5.38); Red Cell Distribution Width 13.9 % (11.5-14.5)
[2021-09-24 06:58] LABS: ALT/SGPT 20 U/L (<40); AST/SGOT 26 U/L (<32); Albumin 3.1 gm/dL (3.2-5.2); Albumin/Globulin Ratio 1.2 (1.0-2.3); Alkaline Phosphatase 67 U/L (39-117); Bilirubin,Direct < 0.2 mg/dL (0-0.3); Bilirubin,Total 0.2 mg/dL (0.1-1.0); Blood Urea Nitrogen 8 mg/dL (8-23); Calcium 9.1 mg/dL (8.6-10.4); Carbon Dioxide 26 mmol/L (22-30); Chloride 101 mmol/L (96-108); Globulin 2.6 gm/dL (2.2-3.7); Glomerular Filtration Rate 98; Glucose 89 mg/dL (70-105); Lactate Dehydrogenase 221 U/L (135-225); Phosphorous 3.1 mg/dL (2.5-4.5); Triglycerides 174 mg/dL (<150); Uric Acid 3.8 mg/dL (2.5-8.0)
[2021-09-24] MEDS: LEVOTHYROXINE 100 MCG TABLET PO SCH (07:29)
[2021-09-24] MEDS: PANTOPRAZOLE 40 MG TABLET PO SCH (07:29)
--- NOTE | 2021-09-24 07:46 | Internal Med Progress Note ---
SUBJECTIVE Subjective Patient information: Note initiated : 09/24/21 at 7:43 am Service Date, if different from initiated Date: [] Patient: Philly Magallanes 71 y/o F admitted on 09/19/21 for Stroke symptoms. Chief Complaint: [] Principal diagnosis: weakness Interval history: Principal diagnosis: weakness Interval history: Ms. Magallanes is a 71 year old F With history of alcohol use, hypertension, anxiety, on chronic benzo therapy, presents to the emergency room yesterday for evaluation of altered mental status. The patient has been having recurrent falls, she had an MRI of bilateral shoulders done which shows complete tear bilateral rotator cuffs, she also has a patellar fracture that was diagnosed a approximately 10 days ago. The patient has been bedbound and it has been difficult for the patient to care for self. At this time it looks like the patient is living with her , with some support, and the caregiver walked in, the patient was confused, and therefore the patient was sent to the emergency room for further evaluation. The patient presented to the emergency room yesterday, initially there was a concern for CVA, head CT was negative, however on subsequent an evaluation it was determined that the patient probably was intoxicated, patient did have an elevated alcohol level of more than 400. The patient lab work showed mild leukocytosis and a UA suggestive of urinary tract infection. She also had elevated lactic acid. The patient was treated with IV fluids, started on CIWA protocol, and IV antibiotics. There was no bed available in the hospital in this facility or in the local [place], therefore an effort was made to transfer the patient to hospital nearby. The patient's family has refused the transfer. And therefore the patient stayed in the ED until a bed opened up here. On my evaluation patient's mental status had improved significantly, she is alert oriented x3, admits to some, constipation, denies any other acute complaint or concern. She has pain in her shoulders and the knee, which seems to be chronic. Given the fact that the patient is unable to care for self at home, and concern for alcohol withdrawal along with urinary tract infection patients will be adm itted to the hospital for further management 09/20 Patient seen examined, Pt seems mentating ok, no acute complaints or concerns, tolerating po ok Still has discofrot in shoulders and some pain in the knee, did not use the knee immobilizer as advised. CIWA scores 13---5 Ortho consultd for patella fracture and denise shoulder rotator cuff injury, Advised outpatient follow up wound care consulted for left buttock decub wound OT/PT eval pending, 09/21 Patient seen examined, sleeing this AM, but woke up. NO acute complaints or concerns CIWA cores 0-12 over last 24 hrs Intermittent Tachycardia, OT/PT eval pending / Wound care eval pending Anticipate d/c to snf in AM Given tachycardia, will check dimer, if significantly elevated consider CTA 09/22 No new events overnight or new complaints. Patient feeling well. She states she slept fine. Mild headache. 09/23 Patient seems to be feeling well. No overnight event or new complaints. Awaiting placement. 09/24 No new complaints or overnight events. Awaiting placement. Review of Systems: denies headache/fever/chills/nausea/vomiting/chest or abdominal pain/cough/dyspnea/diarrhea. Otherwise see above. Constitutional Vitals: Vital Signs Temp Pulse Resp BP Pulse Ox 97.7 F 99 H 14 112/60 98 09/24/21 02:22 09/24/21 02:22 09/24/21 02:22 09/24/21 02:22 09/24/21 02:22 Period Temp Pulse Resp BP Sys/Ramírez Pulse Ox Last 24 Hr 97.1 F-98.0 F 84-115 12-20 112-126/54-65 96-99 Intake and Output 09/23/21 09/24/21 09/24/21 21:59 05:59 13:59 Intake Total 540 800 Output Total 604 250 Balance -64 550 Weight 85.502 kg Intake & Output: Intake & Output 09/23/21 09/24/21 09/24/21 21:59 05:59 13:59 Intake Total 540 800 Output Total 604 250 Balance -64 550 Weight 85.502 kg Intake: Oral 540 800 Output: Urine Catheter Amount 250 Void Amount 600 # of times incontinent of urine 4 Other: Meal Qiana Kiran Percent of Meal Consumed 100% 100% Feeding Ability Independent Independent Urine Appearance Clear Urine Color Bright Yellow Exam: General: Alert, Awake, No acute Distress Eyes/N/T: EOMI, Head/Neck: neck supple, CV: RRR, No murmurs, Pulm: Clear b/l, no wheezing/rhonchi/rales Abd: soft, nontender, +BS x4 Ext: no clubbing/cyanosis/edema Neuro: Alert, no focal deficits, moves all extremities, Skin: warm/dry OBJ DATA Labs CBC & Chem 7: 09/24/21 05:28 09/24/21 05:28 Labs: Abnormal Lab Results 09/24/21 09/24/21 09/23/21 05:28 05:28 07:16 RBC 3.33 L Hgb 10.6 L Hct 33.4 L MCV 100.3 H MPV [place] % (Auto) 14.6 H D-Dimer Sodium Carbon Dioxide BUN Creatinine 0.5 L 0.4 L Glucose 112 H Uric Acid Phosphorus Lactate Dehydrogenase Total Protein 5.7 L 5.8 L Albumin 3.1 L Triglycerides 174 H 09/23/21 09/22/21 09/22/21 07:16 05:50 05:50 RBC 3.47 L Hgb 11.1 L Hct MCV 100.7 H MPV 10.7 H [place] % (Auto) D-Dimer Sodium 132 L Carbon Dioxide 20 L BUN 7 L Creatinine 0.5 L Glucose 126 H Uric Acid Phosphorus Lactate Dehydrogenase 277 H Total Protein Albumin Triglycerides 09/21/21 09/21/21 08:55 05:24 RBC Hgb Hct MCV MPV [place] % (Auto) D-Dimer 3.36 H Sodium Carbon Dioxide BUN 6 L Creatinine 0.4 L Glucose 124 H Uric Acid 2.4 L Phosphorus 2.4 L Lactate Dehydrogenase 229 H Total Protein Albumin Triglycerides Meds: Medications Acetaminophen (Acetaminophen 325 Mg Tablet) 650 mg PO Q4-6HP PRN; Protocol PRN Reason: Per Pain Protocol Last Admin: 09/24/21 07:29 Dose: 650 mg Documented by: Docusate Sodium (Docusate Sodium 100 Mg Capsule) 100 mg PO BID [facility] Last Admin: 09/23/21 20:19 Dose: 100 mg Documented by: Enoxaparin Sodium (Enoxaparin 40 Mg/0.4 Ml Syringe) 40 mg SQ DAILY [facility] Last Admin: 09/23/21 08:44 Dose: 40 mg Documented by: Estrogens Conjugated (Estrogens, Conjugated 0.625 Mg Tablet) 0.625 mg PO DAILY [facility] Last Admin: 09/23/21 08:50 Dose: 0.625 mg Documented by: Folic Acid (Folic Acid 1 Mg Tablet) 1 mg PO DAILY [facility] Last Admin: 09/23/21 08:43 Dose: 1 mg Documented by: Ceftriaxone Sodium 2 gm/ (Dextrose) 50 mls @ 100 mls/hr IV Q24H [facility]; Protocol Last Infusion: 09/23/21 09:44 Dose: Infused Documented by: Iron Carb/Multivit/[place]/Folic Acid (Multivit,Ther Iron,Ca,Fa & Min 1 Tablet) 1 tab PO [facility] Last Admin: 09/23/21 20:19 Dose: 1 tab Documented by: Levothyroxine Sodium (Levothyroxine 100 Mcg Tablet) 100 mcg PO [facility] Last Admin: 09/24/21 07:29 Dose: 100 mcg Documented by: Lorazepam (Lorazepam 0.5 Mg Tablet) 0.5 mg PO DAILYP PRN PRN Reason: Anxiety Last Admin: 09/23/21 08:43 Dose: 0.5 mg Documented by: Lorazepam (Lorazepam 2 Mg/Ml Vial) 1 mg IV Q1HP PRN; Protocol PRN Reason: Alcohol Withdrawal Last Admin: 09/22/21 20:44 Dose: 1 mg Documented by: Lorazepam (Lorazepam 2 Mg/Ml Vial) 0 mg IV Q2HP PRN PRN Reason: ANXIETY/SEDATION Last Admin: 09/24/21 07:30 Dose: 2 mg Documented by: Losartan Potassium (Losartan 50 Mg Tablet) 100 mg PO DAILY [facility] Last Admin: 09/23/21 08:43 Dose: 100 mg Documented by: Medroxyprogesterone (5 Mg Tablet) 1 dose PO DAILY [facility] Last Admin: 09/23/21 08:49 Dose: 1 dose Documented by: Ondansetron HCl (Ondansetron 4 Mg/2 Ml Vial) 4 mg IV Q6HP PRN PRN Reason: Nausea And Vomiting Pantoprazole Sodium (Pant[facility] 40 Mg Tablet) [facility] Last Admin: 09/24/21 07:29 Dose: 40 mg Documented by: Senna (Sennosides 1 Tablet) 2 tab PO [facility] Last Admin: 09/23/21 20:19 Dose: 2 tab Documented by: Sodium Chloride (0.9 % Sodium Chloride 10 Ml Syringe) 10 ml IV Q8 [facility] Last Admin: 09/24/21 04:56 Dose: 10 ml Documented by: Thiamine HCl (Thiamine 100 Mg Tablet) 100 mg PO [facility] Last Admin: 09/23/21 20:19 Dose: 100 mg Documented by: Tramadol HCl (Tramadol 50 Mg Tablet) 50 mg PO TIDP PRN PRN Reason: Pain Last Admin: 09/24/21 00:52 Dose: 50 mg Documented by: Zolpidem Tartrate (Zolpidem 5 Mg Tablet) 10 mg PO QHS PRN PRN Reason: Sleep Last Admin: 09/23/21 20:19 Dose: 10 mg Documented by: A/P Narrative A/P Narrative: A/P: *Alcohol intoxication & W/D: improved *Metabolic Encephalopathy: suspect a combination of factors including above. Improved -clinically stable, head CT is neg, and recent mra is reassuring *severe Sepsis (Present on admission): resolved *UTI(aerococcus): -Rocephin finished *Decub ulceration:due to bed bound status -wound care consulted *Frequent falls: etiology? due to etoh? -will get OT/PT eval -will likely need placements *Bilateral shoulder rotator cuff injury: seems from previous falls -appreciate ortho input; outpatient ortho follow up *Right knee patella fracture with dislocation: diagnosed on of this month -Ortho consulted, appreciate help, -knee immobilizer, if issues with knee stability, WBAT, Outpatient follow up *Hypothyroidism: mildly elevated TSH and mildly low T4, increase thyroxine & f/u outpt for repeat levels *DVT: lovenox Time Spent With Patient Time: Total time spent is greater than 50% in coordination of care (as documented) at patient's floor/unit and/or counseling patient: QUALITY Stroke Symptom Onset Unknown: No VTE Deep Vein Thrombosis/Pulmonary Embolism Present on Admission: No
[2021-09-24] MEDS: FOLIC ACID 1 MG TABLET PO SCH (08:55)
[2021-09-24] MEDS: LOSARTAN 50 MG TABLET PO SCH (08:55)
[2021-09-24] MEDS: DOCUSATE SODIUM 100 MG CAPSULE PO SCH ×2 (08:55→20:26)
[2021-09-24] MEDS: cefTRIAXone 2 GM in DEXTROSE 5% IN WATER 50 ML IV SCH (08:56)
[2021-09-24] MEDS: LORazepam 0.5 MG TABLET PO PRN (08:56)
[2021-09-24] MEDS: ESTROGENS, CONJUGATED 0.625 MG TABLET PO SCH (08:56)
[2021-09-24] MEDS: METOPROLOL TARTRATE 25 MG TABLET PO SCH ×2 (08:56→20:26)
[2021-09-24] MEDS: medroxyPROGESTERone 5 MG TABLET PO SCH (08:56)
[2021-09-24] MEDS: ENOXAPARIN 40 MG/0.4 ML SYRINGE SQ SCH (08:57)
[2021-09-24] MEDS: HYDROcodone/APAP 5/325MG TABLET PO PRN ×4 (10:16→23:46)
[2021-09-24] MEDS ORDERED: PARoxetine 20 MG TABLET PO ONE (10:44)
[2021-09-24] MEDS: THIAMINE 100 MG TABLET PO SCH (20:26)
[2021-09-24] MEDS: MULTIVIT,THER IRON,CA,FA & MIN 1 TABLET PO SCH (20:26)
[2021-09-24] MEDS: ZOLPIDEM 5 MG TABLET PO PRN (20:26)
[2021-09-24] MEDS: SENNOSIDES 1 TABLET PO SCH (20:26)
[2021-09-25] MEDS: LORazepam 2 MG/ML VIAL IV PRN ×3 (00:17→05:43)
[2021-09-25] MEDS: HYDROcodone/APAP 5/325MG TABLET PO PRN ×2 (03:56→08:04)
[2021-09-25] MEDS: 0.9 % SODIUM CHLORIDE 10 ML SYRINGE IV SCH (04:00)
[2021-09-25] MEDS: PANTOPRAZOLE 40 MG TABLET PO SCH (06:59)
[2021-09-25] MEDS ORDERED: LEVOTHYROXINE 125 MCG TABLET PO SCH (07:30)
--- NOTE | 2021-09-25 07:53 | Internal Med Progress Note ---
SUBJECTIVE Subjective Patient information: Note initiated : 09/25/21 at 7:51 am Service Date, if different from initiated Date: [] Patient: Philly Magallanes 71 y/o F admitted on 09/19/21 for Stroke symptoms. Chief Complaint: [] Principal diagnosis: weakness Interval history: Principal diagnosis: weakness Interval history: Ms. Magallanes is a 71 year old F With history of alcohol use, hypertension, anxiety, on chronic benzo therapy, presents to the emergency room yesterday for evaluation of altered mental status. The patient has been having recurrent falls, she had an MRI of bilateral shoulders done which shows complete tear bilateral rotator cuffs, she also has a patellar fracture that was diagnosed a approximately 10 days ago. The patient has been bedbound and it has been difficult for the patient to care for self. At this time it looks like the patient is living with her , with some support, and the caregiver walked in, the patient was confused, and therefore the patient was sent to the emergency room for further evaluation. The patient presented to the emergency room yesterday, initially there was a concern for CVA, head CT was negative, however on subsequent an evaluation it was determined that the patient probably was intoxicated, patient did have an elevated alcohol level of more than 400. The patient lab work showed mild leukocytosis and a UA suggestive of urinary tract infection. She also had elevated lactic acid. The patient was treated with IV fluids, started on CIWA protocol, and IV antibiotics. There was no bed available in the hospital in this facility or in the local [place], therefore an effort was made to transfer the patient to hospital nearby. The patient's family has refused the transfer. And therefore the patient stayed in the ED until a bed opened up here. On my evaluation patient's mental status had improved significantly, she is alert oriented x3, admits to some, constipation, denies any other acute complaint or concern. She has pain in her shoulders and the knee, which seems to be chronic. Given the fact that the patient is unable to care for self at home, and concern for alcohol withdrawal along with urinary tract infection patients will be adm itted to the hospital for further management 09/20 Patient seen examined, Pt seems mentating ok, no acute complaints or concerns, tolerating po ok Still has discofrot in shoulders and some pain in the knee, did not use the knee immobilizer as advised. CIWA scores 13---5 Ortho consultd for patella fracture and denise shoulder rotator cuff injury, Advised outpatient follow up wound care consulted for left buttock decub wound OT/PT eval pending, 09/21 Patient seen examined, sleeing this AM, but woke up. NO acute complaints or concerns CIWA cores 0-12 over last 24 hrs Intermittent Tachycardia, OT/PT eval pending / Wound care eval pending Anticipate d/c to snf in AM Given tachycardia, will check dimer, if significantly elevated consider CTA 09/22 No new events overnight or new complaints. Patient feeling well. She states she slept fine. Mild headache. 09/23 Patient seems to be feeling well. No overnight event or new complaints. Awaiting placement. 09/24 No new complaints or overnight events. Awaiting placement. 09/25 No change. Seems to work in a little bit better with PT but still quite weak and does have pain with ambulation from injuries. Review of Systems: denies headache/fever/chills/nausea/vomiting/chest or abdominal pain/cough/dyspnea/diarrhea. Otherwise see above. Constitutional Vitals: Vital Signs Temp Pulse Resp BP Pulse Ox 97.6 F 84 16 138/65 97 09/25/21 07:02 09/25/21 07:02 09/25/21 07:02 09/25/21 07:02 09/25/21 07:02 Period Temp Pulse Resp BP Sys/Ramírez Pulse Ox Last 24 Hr 97.0 F-98.8 F 81-88 16-20 112-138/55-66 97-100 Intake and Output 09/24/21 09/25/21 09/25/21 21:59 05:59 13:59 Intake Total 840 800 Output Total 3 450 Balance 837 350 Weight 84.935 kg Intake & Output: Intake & Output 09/24/21 09/25/21 09/25/21 21:59 05:59 13:59 Intake Total 840 800 Output Total 3 450 Balance 837 350 Weight 84.935 kg Intake: Oral 840 800 Output: Urine Catheter Amount 450 # of times incontinent of urine 3 Other: Meal Dinner Percent of Meal Consumed 50% Feeding Ability Independent Urine Appearance Clear Urine Color Dark Yellow Urine Odor Normal Exam: General: Alert, Awake, No acute Distress Eyes/N/T: EOMI, Head/Neck: neck supple, CV: RRR, No murmurs, Pulm: Clear b/l, no wheezing/rhonchi/rales Abd: soft, nontender, +BS x4 Ext: no clubbing/cyanosis/edema Neuro: Alert, no focal deficits, moves all extremities, Skin: warm/dry OBJ DATA Labs CBC & Chem 7: 09/24/21 05:28 09/24/21 05:28 Labs: Abnormal Lab Results 09/24/21 09/24/21 09/24/21 05:28 05:28 05:28 RBC 3.33 L Hgb 10.6 L Hct 33.4 L MCV 100.3 H [place] % (Auto) 14.6 H Sodium Carbon Dioxide BUN Creatinine 0.5 L Glucose Lactate Dehydrogenase Total Protein 5.7 L Albumin 3.1 L Triglycerides 174 H Free T4 0.84 L 09/23/21 09/23/21 09/22/21 07:16 07:16 05:50 RBC 3.47 L Hgb 11.1 L Hct MCV [place] % (Auto) Sodium 132 L Carbon Dioxide 20 L BUN 7 L Creatinine 0.4 L 0.5 L Glucose 112 H 126 H Lactate Dehydrogenase 277 H Total Protein 5.8 L Albumin Triglycerides Free T4 Meds: Medications Acetaminophen (Acetaminophen 325 Mg Tablet) 650 mg PO Q4-6HP PRN; Protocol PRN Reason: Per Pain Protocol Last Admin: 09/24/21 12:54 Dose: 650 mg Documented by: Hydrocodone Bitart/Acetaminophen (Hydrocodone/Apap 5/325mg Tablet) 1 tab PO Q4HP PRN; Protocol PRN Reason: Per Pain Protocol Last Admin: 09/25/21 03:56 Dose: 1 tab Documented by: Docusate Sodium (Docusate Sodium 100 Mg Capsule) 100 mg PO BID [facility] Last Admin: 09/24/21 20:26 Dose: 100 mg Documented by: Enoxaparin Sodium (Enoxaparin 40 Mg/0.4 Ml Syringe) 40 mg SQ DAILY [facility] Last Admin: 09/24/21 08:57 Dose: 40 mg Documented by: Estrogens Conjugated (Estrogens, Conjugated 0.625 Mg Tablet) 0.625 mg PO DAILY [facility] Last Admin: 09/24/21 08:56 Dose: 0.625 mg Documented by: Folic Acid (Folic Acid 1 Mg Tablet) 1 mg PO DAILY [facility] Last Admin: 09/24/21 08:55 Dose: 1 mg Documented by: Iron Carb/Multivit/[place]/Folic Acid (Multivit,Ther Iron,Ca,Fa & Min 1 Tablet) 1 tab PO [facility] Last Admin: 09/24/21 20:26 Dose: 1 tab Documented by: Levothyroxine Sodium (Levothyroxine 125 Mcg Tablet) [facility] Last Admin: 09/25/21 06:59 Dose: 125 mcg Documented by: Lorazepam (Lorazepam 0.5 Mg Tablet) 0.5 mg PO DAILYP PRN PRN Reason: Anxiety Last Admin: 09/24/21 08:56 Dose: 0.5 mg Documented by: Lorazepam (Lorazepam 2 Mg/Ml Vial) 1 mg IV Q1HP PRN; Protocol PRN Reason: Alcohol Withdrawal Last Admin: 09/25/21 05:43 Dose: 1 mg Documented by: Lorazepam (Lorazepam 2 Mg/Ml Vial) 0 mg IV Q2HP PRN PRN Reason: ANXIETY/SEDATION Last Admin: 09/25/21 03:56 Dose: 2 mg Documented by: Losartan Potassium (Losartan 50 Mg Tablet) 100 mg PO DAILY [facility] Last Admin: 09/24/21 08:55 Dose: 100 mg Documented by: Metoprolol Tartrate (Metoprolol Tartrate 25 Mg Tablet) 25 mg PO BID [facility] Last Admin: 09/24/21 20:26 Dose: 25 mg Documented by: Medroxyprogesterone (5 Mg Tablet) 1 dose PO DAILY [facility] Last Admin: 09/24/21 08:56 Dose: 1 dose Documented by: Ondansetron HCl (Ondansetron 4 Mg/2 Ml Vial) 4 mg IV Q6HP PRN PRN Reason: Nausea And Vomiting Pantoprazole Sodium (Pantoprazole 40 Mg Tablet) [facility] Last Admin: 09/25/21 06:59 Dose: 40 mg Documented by: Paroxetine HCl (Paroxetine 20 Mg Tablet) 20 mg PO DAILY [facility] Senna (Sennosides 1 Tablet) 2 tab PO [facility] Last Admin: 09/24/21 20:26 Dose: 2 tab Documented by: Sodium Chloride (0.9 % Sodium Chloride 10 Ml Syringe) 10 ml IV Q8 [facility] Last Admin: 09/25/21 04:00 Dose: 10 ml Documented by: Thiamine HCl (Thiamine 100 Mg Tablet) 100 mg PO [facility] Last Admin: 09/24/21 20:26 Dose: 100 mg Documented by: Zolpidem Tartrate (Zolpidem 5 Mg Tablet) 10 mg PO QHS PRN PRN Reason: Sleep Last Admin: 09/24/21 20:26 Dose: 10 mg Documented by: A/P Narrative A/P Narrative: A/P: *Alcohol intoxication & W/D: improved *Metabolic Encephalopathy: suspect a combination of factors including above. Improved -clinically stable, head CT is neg, and recent mra is reassuring *severe Sepsis (Present on admission): resolved *UTI(aerococcus): -Rocephin finished *Decub ulceration:due to bed bound status -wound care consulted *Frequent falls: etiology? due to etoh? -will get OT/PT eval -needs placement *Bilateral shoulder rotator cuff injury: seems from previous falls -appreciate ortho input; outpatient ortho follow up *Right knee patella fracture with dislocation: diagnosed on of this month -Ortho consulted, appreciate help, -knee immobilizer if issues with knee stability, WBAT, Outpatient follow up *Hypothyroidism: mildly elevated TSH and mildly low T4, increase thyroxine & f/u outpt for repeat levels *DVT: lovenox Time Spent With Patient Time: Total time spent is greater than 50% in coordination of care (as documented) at patient's floor/unit and/or counseling patient: QUALITY Stroke Symptom Onset Unknown: No VTE Deep Vein Thrombosis/Pulmonary Embolism Present on Admission: No
[2021-09-25] MEDS: FOLIC ACID 1 MG TABLET PO SCH (08:04)
[2021-09-25] MEDS: METOPROLOL TARTRATE 25 MG TABLET PO SCH (08:04)
[2021-09-25] MEDS: DOCUSATE SODIUM 100 MG CAPSULE PO SCH (08:04)
[2021-09-25] MEDS: LOSARTAN 50 MG TABLET PO SCH (08:04)
[2021-09-25] MEDS: medroxyPROGESTERone 5 MG TABLET PO SCH (08:05)
[2021-09-25] MEDS: ENOXAPARIN 40 MG/0.4 ML SYRINGE SQ SCH (08:05)
[2021-09-25] MEDS: ESTROGENS, CONJUGATED 0.625 MG TABLET PO SCH (08:05)
[2021-09-25] MEDS ORDERED: PARoxetine 20 MG TABLET PO SCH (09:00)
[2021-09-25] MEDS ORDERED: LORazepam 1 MG TABLET PO PRN (09:51)
--- NOTE | 2021-09-25 11:34 | General Surgery Progress Note ---
SUBJECTIVE Subjective Patient information: Note initiated : 09/25/21 at 11:30 am Service Date, if different from initiated Date: [] Patient: Philly Magallanes 71 y/o F admitted on 09/19/21 for Stroke symptoms. Chief Complaint: [] Principal diagnosis: weakness Additional PMFSH (Level 3 Only): Patient seen with Jamil Mcmullen RN. Wound examined. Constitutional Vitals: Vital Signs Temp Pulse Resp BP Pulse Ox 97.6 F 84 16 138/65 97 09/25/21 07:02 09/25/21 07:02 09/25/21 07:02 09/25/21 07:02 09/25/21 07:02 Period Temp Pulse Resp BP Sys/Ramírez Pulse Ox Last 24 Hr 97.0 F-98.8 F 81-88 16-20 112-138/55-66 97-100 Intake and Output 09/24/21 09/25/21 09/25/21 21:59 05:59 13:59 Intake Total 840 800 600 Output Total 3 450 1 Balance 837 350 599 Weight 187 lb 4 oz Intake & Output: Intake & Output 09/24/21 09/25/21 09/25/21 21:59 05:59 13:59 Intake Total 840 800 600 Output Total 3 450 1 Balance 837 350 599 Weight 187 lb 4 oz Intake: Oral 840 800 600 Output: Urine Catheter Amount 450 # of times incontinent of urine 3 1 Other: Meal Dinner Breakfast Percent of Meal Consumed 50% 100% Feeding Ability Independent Urine Appearance Clear Clear Urine Color Dark Yellow Straw Urine Odor Normal Normal Stool Size Moderate Stool Color Brown Stool Consistency Soft Formed # Voids 1 # of times incontinent of 1 Bowels Exam: AVSS. No changes FOX. Physical therapy is ongoing. LEFT buttock / gluteal skin tear site has epithelialized . A/P Narrative A/P Narrative: Assessment: Epithelialized / healed skin tear site LEFT buttock. Physical therapy on going for ADL Plan: Continue present care. Will sign off at this time. See again PRN basis. Time Spent With Patient Time: Total time spent is greater than 50% in coordination of care (as documented) at patient's floor/unit and/or counseling patient: Total time spent with greater than 50% in coordination of care (as documented) at patient's floor/unit and/or counseling patient:: 15 - 24 minutes
[2021-09-25] MEDS ORDERED: PNEUMOCOCCAL 23-VAL P-SAC VAC 0.5 ML SYRINGE IM ONE (13:45)
== END 2021-09-25 14:15 | DRG 871 ==
LOC: ED 10:38 → MEDSUR 09-19 20:20
PROVIDERS: ADMIT Internal Medicine; ATTEND Internal Medicine

== ENCOUNTER 2021-10-31 08:14 | Inpatient (IN) ==
[2021-10-24 15:05] LABS: Basophils # (Auto) 0.04 K/mcL (0.00-0.30); Basophils % (Auto) 0.4 % (0.0-2.0); Eosinophils # (Auto) 0.13 K/mcL (0.00-0.70); Eosinophils % (Auto) 1.4 % (0.0-7.0); Hematocrit 40.6 % (34.1-44.9); Hemoglobin 12.8 g/dL (11.2-15.7); Lymphocytes # (Auto) 1.71 K/mcL (1.50-4.80); Lymphocytes % (Auto) 18.3 % (15.5-49.0); Mean Cell Volume 98.5 fL (80.0-100.0); Mean Corpuscular HGB Conc 31.5 g/dL (31.0-36.0); Mean Platelet Volume 11.2 fL (7.4-10.4); Monocytes # (Auto) 0.78 K/mcL (0.10-0.90); Monocytes % (Auto) 8.4 % (1.0-12.0); Neutrophils % (Auto) 71.5 % (38.0-78.0); Platelet Count 284 K/mcL (140-440); RBC 4.12 M/mcL (3.59-5.38); Red Cell Distribution Width 13.2 % (11.5-14.5); WBC 9.3 K/mcL (4.5-11.0)
[2021-10-24 16:04] LABS: Blood Urea Nitrogen 9 mg/dL (8-23); Calcium 9.5 mg/dL (8.6-10.4); Carbon Dioxide 20 mmol/L (22-30); Chloride 101 mmol/L (96-108); Glomerular Filtration Rate 87; Glucose 109 mg/dL (70-105)
[~2021-10-31 08:14] MED LIST: 0.9 % SODIUM CHLORIDE 9 ML, KETOROLAC 30 MG, ROPIVACAINE HCL/PF 49.5 ML, EPINEPHrine 0.... IJ SCH; ACETAMINOPHEN 500 MG TABLET PO SCH; PREGABALIN 75 MG CAPSULE PO SCH; ceFAZolin 2 GM in DEXTROSE 5% IN WATER 50 ML IV SCH; oxyCODONE 10 MG TAB.ER.12H PO SCH
[2021-10-31] MEDS: CELECOXIB 200 MG CAPSULE PO SCH ×2 (08:48→13:31)
[2021-10-31 09:58] LABS: Appearance,Urine Clear (Clear); Bilirubin,Urine Negative (Negative); Color,Urine Yellow; Culture Indicated,Urine No; Glucose,Urine (UA) Negative (Negative); Ketones,Urine Negative (Negative); Leukocyte Esterase,Urine Negative /uL (Negative); Nitrate,Urine Negative (Negative); Protein,Urine Negative (Negative); Specific Gravity,Urine 1.008 (1.000-1.035); Urine Blood Negative (Negative); Urobilinogen,Urine Negative
--- NOTE | 2021-10-31 10:27 | Discharge Plan ---
Discharge Instructions - TKA Patient Instructions Total Knee Protocol: For Total Knee: Start ROM AMITA with stationary bike or rocking chair. Work on gaining full extension of knee. Posterior dislocation precautions provided. Hip abductor strengthening and gait training instructions provided. Apply Cryocuff as instructed. Dressing Care: Other Additional Dressing Instructions: Leave Zip line closure patch intact until followup Discharge Plan Patient/Caregiver Discharge Instructions Activity: ambulate only with your walker and as per physical therapy Diet: Regular Diet Prescriptions: New hydrocodone-acetaminophen 10-325 mg tablet 1 - 2 tab PO Q4H PRN (Reason: pain) Qty: 75 0RF aspirin [Ecotrin Low Strength] 81 mg tablet,delayed release (DR/EC) 81 mg PO BID Qty: 60 0RF docusate sodium 100 mg capsule 100 mg PO BID Qty: 60 0RF No Action levothyroxine [Synthroid] 100 mcg Tablet 100 mcg PO QDAY 0RF pantoprazole [Protonix] 40 mg Tablet,Delayed Release (Dr/Ec) 40 mg PO QDAY 0RF losartan 100 mg Tablet 100 mg PO QDAY 0RF medroxyprogesterone 5 mg Tablet 5 mg PO QDAY 0RF Premarin 0.9 mg Tablet 0.9 mg PO DAILY 0RF lorazepam [Ativan] 0.5 mg Tablet 0.5 mg PO BID PRN (Reason: anxiety) Qty: 10 0RF zolpidem [Ambien] 5 mg Tablet 10 mg PO QHS PRN (Reason: Sleep) Qty: 10 0RF hydrocodone-acetaminophen 5-325 mg Tablet 1 tab PO Q6H PRN (Reason: Pain) 0RF bisacodyl 10 mg Suppository 10 mg [place] QDAY PRN (Reason: Constipation) 0RF paroxetine HCl 20 mg Tablet 40 mg PO TID 0RF metoprolol tartrate 25 mg tablet 1 tab PO QDAY 0RF Other Ambulatory Orders: CPM Discharge Order (ONCE) Location: None Selected Ordered By: Ovidio Hernandez Physical Therapy DC - TKA (Routine) Location: None Selected Ordered By: Ovidio Hernandez Toilet Riser Discharge Order (ONCE) Location: None Selected Ordered By: Ovidio Hernandez Walker (ONCE) Location: None Selected Ordered By: Ovidio Hernandez Follow Up Plan Follow up with: Twan Chow MD [Physician] - 11/13/21 1:40 pm Ovidio Hernandez PA-C [Physician Languages And Literature Instructor] - Patient Disposition: Home, Self-Care Prognosis: Good Rehab Potential: Good I certify that the patient requires SNF services: No Overall status at discharge: patient is progressing back to baseline Discharge Orders: Discharge Order (Routine); Ordered 11/01/21 Ordered By: Ovidio Hernandez
[2021-10-31] MEDS ORDERED: ROPIVACAINE HCL/PF 20 ML VIAL IJ ONE (10:45)
[2021-10-31] MEDS ORDERED: DEXAMETHASONE 10 MG/ML VIAL ONE (10:45)
[2021-10-31] MEDS ORDERED: TRANEXAMIC ACID 1,000 MG/10 ML VIAL ONE (10:45)
[2021-10-31] MEDS ORDERED: MAGNESIUM SULFATE 2 GM/50 ML BAG IV ONE (10:45)
[2021-10-31] MEDS ORDERED: KETAMINE 50 MG/ML Syringe (ANEST) IV ONE (10:45)
[2021-10-31] MEDS ORDERED: ONDANSETRON 4 MG/2 ML VIAL ONE (10:45)
[2021-10-31] MEDS ORDERED: PROPOFOL 200 MG/20 ML VIAL IV ONE (10:45)
[2021-10-31] MEDS ORDERED: LIDOCAINE HCL/PF 100 MG/5 ML SYRINGE IV ONE (10:45)
--- NOTE | 2021-10-31 10:49 | Brief Operative Note ---
Brief Operative Note Date of procedure: 10/31/21 Pre-op diagnosis: Right knee djd Post-op diagnosis: same Procedure: right tka [place] Grafts/Implants: Yes Anesthesia: GETA Complications: none Surgeon: Twan Chow Security Control Assessor: Ovidio Hernandez Estimated blood loss (cc): 50 Specimens Removed/Pathology: none sent Condition: stable Disposition: PACU
[2021-10-31] MEDS ORDERED: ONDANSETRON 4 MG/2 ML VIAL IV PRN ×2 (10:52→11:59)
[2021-10-31] MEDS ORDERED: HYDROmorphone 1 MG/ML SYRINGE IV PRN (10:52)
[2021-10-31] MEDS ORDERED: MAGNESIUM HYDROXIDE 30 ML ORAL.SUSP PO PRN (10:52)
[2021-10-31] MEDS ORDERED: POLYETHYLENE GLYCOL 3350 17 GM PACKET PO PRN (10:52)
[2021-10-31] MEDS ORDERED: ACETAMINOPHEN 325 MG TABLET PO PRN (10:52)
[2021-10-31] MEDS ORDERED: FLEETS ADULT ENEMA PR PRN (10:52)
[2021-10-31] MEDS ORDERED: BISACODYL 10 MG SUPP.RECT PR PRN ×2 (10:52→10:54)
[2021-10-31] MEDS ORDERED: TEMAZEPAM 15 MG CAPSULE PO PRN (10:52)
[2021-10-31] MEDS ORDERED: TRANEXAMIC ACID 1,000 MG/10 ML VIAL IV ONE (10:52)
[2021-10-31] MEDS ORDERED: BENZOCAINE/MENTHOL 1 LOZENGE PO PRN (10:52)
[2021-10-31] MEDS ORDERED: HYDROcodone/APAP (PP) 5/325MG TABLET (#4) PO PRN (10:54)
[2021-10-31] MEDS ORDERED: GENTAMICIN SULFATE 800 MG/20 ML VIAL IR ONE (11:09)
[2021-10-31] MEDS ORDERED: fentaNYL 100 MCG/2 ML VIAL IV PRN (11:59)
[2021-10-31] MEDS ORDERED: NALOXONE HCL 0.4 MG/ML VIAL IV PRN (11:59)
[2021-10-31] MEDS ORDERED: PROMETHAZINE 25 MG/ML VIAL IV PRN (11:59)
[2021-10-31] MEDS ORDERED: diphenhydrAMINE 50 MG/ML VIAL IV PRN (11:59)
[2021-10-31] MEDS ORDERED: LACTATED RINGERS 250 ML IV PRN (11:59)
[2021-10-31] MEDS ORDERED: IPRATROPIUM/ALBUTEROL 3 ML AMPUL.NEB NEB PRN (11:59)
[2021-10-31] MEDS ORDERED: MEPERIDINE 25 MG/ML VIAL IV PRN (11:59)
[2021-10-31] MEDS ORDERED: LACTATED RINGERS 1,000 ML IV SCH (12:00)
--- NOTE | 2021-10-31 12:34 | Operative Note ---
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 PROCEDURE: Right total knee arthroplasty using the Louis robot and Gary implants. SURGEON: Twan Chow M.D. EDUCATION ASSOCIATE: Ovidio Hernandez PA-C. This providers expertise and technical skill were required throughout the case. The JYOTI assisted with preoperative coordination, intraoperative retraction, wound closure, and dressing and splint application, as well as postoperative documentation and care coordination. ANESTHESIA: General LMA anesthesia. TOURNIQUET TIME: Approximately 50 minutes at 250 mmHg. BLOOD LOSS: About 80 mL. IMPLANTS: Size 3 femur, size 4 tibial baseplate with a 12 mm deep dish poly with a 35 mm patellar button. COMPLICATIONS: None. DESCRIPTION OF PROCEDURE: The patient was brought to the operating room, put to sleep with general LMA anesthesia. Once asleep, the patient had the right leg sterilely prepped and draped, Ioban placed over the skin. The leg was exsanguinated and the tourniquet inflated to 250 pounds of pressure. A timeout was performed, confirming the operative site by initials, consent form, and x-rays. We made a midline incision, a midvastus approach was performed. The patella was obviously dislocated laterally, even on entrance of the knee. There was an erosion of the lateral femoral condyle and severe damage to the patella. With these findings, we proceeded with the Louis robot total knee arthroplasty. Two pins above and below the knee were placed. We registered checkpoints on the femur and the tibia, registered medial and lateral malleoli and registered center of hip rotation. Once done, we then made 30 checkpoints on the femur and the tibia. We irrigated thoroughly and then brought in the robot after we balanced knee throughout the arc of motion. We irrigated thoroughly. Once done, we were able to then trial the components. We made the bony cuts for the size 3 femur, size 4 tibial baseplate. The 12 poly was the most appropriate. The component appeared to be in excellent position. The patella still tracked laterally. We performed a lateral release to assist with tracking of the patella. We restored the normal 22 mm thickness. We only removed 1-2 mm because of the severe damage to the patella. The 35 mm patella was placed. All components were cemented into place. Excess cement was placed as well. I irrigated thoroughly and then closed the wound with #1 Stratafix. We closed the capsule with Stratafix and adhesive closure. The knee had excellent range of motion. Patella tracked well. We then closed the skin with Stratafix and adhesive closure. The patient tolerated this well. There were no complications. Tourniquet time was approximately 50 minutes. RBH:kh Job ID: [id number] Doc ID: [id number] Twan Chow MD
[2021-10-31] MEDS: 0.45 % SODIUM CHLORIDE 1,000 ML IV SCH ×2 (13:28→21:04)
[2021-10-31] MEDS: 0.9 % SODIUM CHLORIDE 10 ML SYRINGE IV SCH ×2 (13:32→22:01)
--- NOTE | 2021-10-31 14:04 | XRay Report ---
CLINICAL INFORMATION: Post-Op Total Knee COMPARISON: 09/20/2021 FINDINGS: Total knee prostheses is anatomically aligned. No osseous abnormalities. Periarticular soft tissue swelling seen as expected. IMPRESSION: Knee prostheses in anatomic alignment Interpreted and Authenticated by: Horacio Rushing 10/31/21
[2021-10-31] MEDS: HYDROcodone/APAP 10/325MG TABLET PO PRN ×2 (16:23→21:02)
[2021-10-31] MEDS: ceFAZolin 1 GM VIAL IV SCH (17:54)
[2021-10-31] MEDS: LORazepam 0.5 MG TABLET PO PRN ×2 (18:45→21:02)
[2021-10-31] MEDS: DOCUSATE SODIUM 100 MG CAPSULE PO SCH (20:48)
[2021-10-31] MEDS: SENNOSIDES 1 TABLET PO SCH (20:49)
[2021-10-31] MEDS: ASPIRIN 81 MG TAB.CHEW PO SCH (21:02)
[2021-10-31] MEDS: ZOLPIDEM 5 MG TABLET PO PRN (21:02)
[2021-11-01] MEDS: ceFAZolin 1 GM VIAL IV SCH (01:41)
[2021-11-01] MEDS: LORazepam 0.5 MG TABLET PO PRN ×2 (01:41→13:24)
[2021-11-01] MEDS: HYDROcodone/APAP 10/325MG TABLET PO PRN ×5 (01:42→22:05)
[2021-11-01] MEDS: 0.9 % SODIUM CHLORIDE 10 ML SYRINGE IV SCH ×3 (04:39→20:31)
[2021-11-01] MEDS: LEVOTHYROXINE 100 MCG TABLET PO SCH (08:44)
[2021-11-01] MEDS: DOCUSATE SODIUM 100 MG CAPSULE PO SCH ×2 (08:46→20:30)
[2021-11-01] MEDS: ASPIRIN 81 MG TAB.CHEW PO SCH ×2 (09:13→20:30)
[2021-11-01] MEDS: PANTOPRAZOLE 40 MG TABLET PO SCH (09:13)
[2021-11-01] MEDS: PARoxetine 20 MG TABLET PO SCH (09:14)
[2021-11-01] MEDS: LOSARTAN 50 MG TABLET PO SCH (09:14)
[2021-11-01] MEDS: METOPROLOL TARTRATE 25 MG TABLET PO SCH (09:14)
--- NOTE | 2021-11-01 10:23 | Orthopedic Progress Note ---
SUBJECTIVE Subjective Patient information: Note initiated : 11/01/21 at 10:21 am Service Date, if different from initiated Date: [] Patient: Philly Magallanes 71 y/o F admitted on for Right Louis Total Knee Arthroplasty. Chief Complaint: [less pain and is eating] Principal diagnosis: right total knee Constitutional Vitals: Vital Signs Temp Pulse Resp BP Pulse Ox 97.6 F 63 18 133/71 98 11/01/21 07:23 11/01/21 07:23 11/01/21 07:23 11/01/21 07:23 11/01/21 08:45 Period Temp Pulse Resp BP Sys/Ramírez Pulse Ox Last 24 Hr 97.5 F-99.2 F 63-105 9-23 122-153/62-116 82-100 Intake and Output 10/31/21 11/01/21 11/01/21 21:59 05:59 13:59 Intake Total 790 1500 Output Total 651 300 200 Balance 139 1200 -200 Intake & Output: Intake & Output 10/31/21 11/01/21 11/01/21 21:59 05:59 13:59 Intake Total 790 1500 Output Total 651 300 200 Balance 139 1200 -200 Intake: IV 1000 Sodium Chloride 0.45% 1,000 ml 1000 @ 100 mls/hr IV .Q10H [facility] Rx#: [id number] Oral 790 500 Output: Void Amount 650 300 200 # of times incontinent of urine 1 Other: Meal Dinner Breakfast Percent of Meal Consumed 100% 100% Feeding Ability Independent Independent Urine Appearance Clear Clear Urine Color Bright Yellow Bright Yellow Urine Odor Normal Normal Neurological Exam Neurological exam: Present abnormal gait and CN II-XII intact OBJ DATA Labs CBC & Chem 7: 11/01/21 05:56 10/24/21 10:58 Labs: Abnormal Lab Results 10/24/21 10/24/21 10:58 10:58 MPV 11.2 H Carbon Dioxide 20 L Glucose 109 H Meds: Medications Acetaminophen (Acetaminophen 325 Mg Tablet) 650 mg PO Q6HP PRN; Protocol PRN Reason: Per Pain Protocol/Fever > 101 Hydrocodone Bitart/Acetaminophen (Hydrocodone/Apap 10/325mg Tablet) 1 - 2 tab PO Q4HP PRN; Protocol PRN Reason: Per Pain Protocol Last Admin: 11/01/21 09:14 Dose: 1 tab Documented by: Aspirin (Aspirin 81 Mg Tab.Chew) 81 mg PO BID [facility] Last Admin: 11/01/21 09:13 Dose: 81 mg Documented by: Bisacodyl (Bisacodyl 10 Mg Supp.Rect) 10 mg MA Q2-3DAYS PRN PRN Reason: Constipation Docusate Sodium (Docusate Sodium 100 Mg Capsule) 100 mg PO BID [facility] Last Admin: 11/01/21 08:46 Dose: Not Given Documented by: Estrogens Conjugated (Estrogens, Conjugated 0.9 Mg Tablet) 0.9 mg PO DAILY [facility] Hydromorphone HCl (Hydromorphone 1 Mg/Ml Syringe) 0.5 - 2 mg IV Q2HP PRN; Protocol PRN Reason: Per Pain Protocol Last Admin: 11/01/21 04:38 Dose: 1 mg Documented by: Levothyroxine Sodium (Levothyroxine 100 Mcg Tablet) 100 mcg PO QAMAC [facility] Last Admin: 11/01/21 08:44 Dose: 100 mcg Documented by: Lorazepam (Lorazepam 0.5 Mg Tablet) 0.5 mg PO BID PRN PRN Reason: anxiety Last Admin: 11/01/21 01:41 Dose: 0.5 mg Documented by: Losartan Potassium (Losartan 50 Mg Tablet) 100 mg PO DAILY [facility] Last Admin: 11/01/21 09:14 Dose: 100 mg Documented by: Magnesium Hydroxide (Magnesium Hydroxide 30 Ml Oral.Susp) 30 ml PO BIDP PRN PRN Reason: Constipation Medroxyprogesterone Acetate (Medroxyprogesterone 10 Mg Tablet) 5 mg PO DAILY [facility] Metoprolol Tartrate (Metoprolol Tartrate 25 Mg Tablet) 25 mg PO QDAY [facility] Last Admin: 11/01/21 09:14 Dose: 25 mg Documented by: Ondansetron HCl (Ondansetron 4 Mg/2 Ml Vial) 4 mg IV Q4HP PRN PRN Reason: Nausea And Vomiting Pantoprazole Sodium (Pantoprazole 40 Mg Tablet) 40 mg PO QDAY [facility] Last Admin: 11/01/21 09:13 Dose: 40 mg Documented by: Paroxetine HCl (Paroxetine 20 Mg Tablet) 40 mg PO DAILY [facility] Last Admin: 11/01/21 09:14 Dose: 40 mg Documented by: Polyethylene Glycol (Polyethylene Glycol 3350 17 Gm Packet) 17 gm PO DAILYP PRN PRN Reason: Constipation Senna (Sennosides 1 Tablet) 2 tab PO HS [facility] Last Admin: 10/31/21 20:49 Dose: Not Given Documented by: Sodium Biphosphate/Sodium Phosphate (Fleets Adult Enema) 1 dose MA Q3-4DAYS PRN PRN Reason: Constipation Sodium Chloride (0.9 % Sodium Chloride 10 Ml Syringe) 10 ml IV Q8 [facility] Last Admin: 11/01/21 04:39 Dose: 10 ml Documented by: Temazepam (Temazepam 15 Mg Capsule) 15 mg PO HSP PRN PRN Reason: Insomnia Throat Lozenges (Benzocaine/Menthol 1 Lozenge) 1 lozenge PO PRN PRN PRN Reason: Sore Throat Zolpidem Tartrate (Zolpidem 5 Mg Tablet) 10 mg PO QHS PRN PRN Reason: Sleep Last Admin: 10/31/21 21:02 Dose: 10 mg Documented by: EKG Data EKG shows normal: sinus rhythm A/P Narrative A/P Narrative: keep her here over night d/c home tomorrow Time Spent With Patient Time: Total time spent is greater than 50% in coordination of care (as documented) at patient's floor/unit and/or counseling patient: Total time spent with greater than 50% in coordination of care (as documented) at patient's floor/unit and/or counseling patient:: 15 - 24 minutes
[2021-11-01] MEDS: ESTROGENS, CONJUGATED 0.9 MG TABLET PO SCH (11:06)
[2021-11-01] MEDS: medroxyPROGESTERone 10 MG TABLET PO SCH (14:36)
[2021-11-01] MEDS: ZOLPIDEM 5 MG TABLET PO PRN (20:30)
[2021-11-01] MEDS: SENNOSIDES 1 TABLET PO SCH (20:30)
[2021-11-02] MEDS: HYDROcodone/APAP 10/325MG TABLET PO PRN ×3 (03:16→13:25)
[2021-11-02] MEDS: 0.9 % SODIUM CHLORIDE 10 ML SYRINGE IV SCH ×2 (06:02→14:47)
[2021-11-02] MEDS: LORazepam 0.5 MG TABLET PO PRN (06:11)
[2021-11-02] MEDS: LEVOTHYROXINE 100 MCG TABLET PO SCH (07:00)
[2021-11-02] MEDS: ESTROGENS, CONJUGATED 0.9 MG TABLET PO SCH (08:32)
[2021-11-02] MEDS: medroxyPROGESTERone 10 MG TABLET PO SCH ×2 (08:33→11:36)
[2021-11-02] MEDS: DOCUSATE SODIUM 100 MG CAPSULE PO SCH (08:36)
[2021-11-02] MEDS: PANTOPRAZOLE 40 MG TABLET PO SCH (08:36)
[2021-11-02] MEDS: ASPIRIN 81 MG TAB.CHEW PO SCH (08:36)
[2021-11-02] MEDS: PARoxetine 20 MG TABLET PO SCH (08:36)
[2021-11-02] MEDS: METOPROLOL TARTRATE 25 MG TABLET PO SCH (11:29)
[2021-11-02] MEDS: LOSARTAN 50 MG TABLET PO SCH (11:29)
--- NOTE | 2021-11-02 12:20 | Orthopedic Progress Note ---
SUBJECTIVE Subjective Patient information: Note initiated : 11/02/21 at 12:13 pm Service Date, if different from initiated Date: [] Patient: Philly Magallanes 71 y/o F admitted on 11/01/21 for Right Louis Total Knee Arthroplasty. Chief Complaint: [minimal pain and eating well and no fever or nause] Principal diagnosis: right total knee Constitutional Vitals: Vital Signs Temp Pulse Resp BP Pulse Ox 98.4 F 83 16 110/59 96 11/02/21 11:06 11/02/21 11:06 11/02/21 11:06 11/02/21 11:06 11/02/21 11:06 Period Temp Pulse Resp BP Sys/Ramírez Pulse Ox Last 24 Hr 97.6 F-98.8 F 62-89 14-18 108-137/54-81 18-99 Intake and Output 11/01/21 11/02/21 11/02/21 20:59 05:59 13:59 Intake Total 490 Output Total Balance 490 Weight Intake & Output: Intake & Output 11/01/21 11/02/21 11/02/21 20:59 05:59 13:59 Intake Total 490 Output Total Balance 490 Weight Intake: Oral 490 Output: Void Amount Other: Meal Breakfast Percent of Meal Consumed 50% Feeding Ability Independent # Voids Neurological Exam Neurological exam: Present abnormal gait, alert and oriented X3 OBJ DATA Labs CBC & Chem 7: 11/01/21 05:56 10/24/21 10:58 Labs: Abnormal Lab Results 10/24/21 10/24/21 10:58 10:58 MPV 11.2 H Carbon Dioxide 20 L Glucose 109 H Meds: Medications Acetaminophen (Acetaminophen 325 Mg Tablet) 650 mg PO Q6HP PRN; Protocol PRN Reason: Per Pain Protocol/Fever > 101 Last Admin: 11/02/21 11:34 Dose: 650 mg Documented by: Hydrocodone Bitart/Acetaminophen (Hydrocodone/Apap 10/325mg Tablet) 1 - 2 tab PO Q4HP PRN; Protocol PRN Reason: Per Pain Protocol Last Admin: 11/02/21 08:37 Dose: 1 tab Documented by: Aspirin (Aspirin 81 Mg Tab.Chew) 81 mg PO BID [facility] Last Admin: 11/02/21 08:36 Dose: 81 mg Documented by: Bisacodyl (Bisacodyl 10 Mg Supp.Rect) 10 mg GA Q2-3DAYS PRN PRN Reason: Constipation Docusate Sodium (Docusate Sodium 100 Mg Capsule) 100 mg PO BID [facility] Last Admin: 11/02/21 08:36 Dose: 100 mg Documented by: Estrogens Conjugated (Estrogens, Conjugated 0.9 Mg Tablet) 0.9 mg PO DAILY [facility] Last Admin: 11/02/21 08:32 Dose: Not Given Documented by: Hydromorphone HCl (Hydromorphone 1 Mg/Ml Syringe) 0.5 - 2 mg IV Q2HP PRN; Protocol PRN Reason: Per Pain Protocol Last Admin: 11/01/21 04:38 Dose: 1 mg Documented by: Levothyroxine Sodium (Levothyroxine 100 Mcg Tablet) 100 mcg PO QAMAC [facility] Last Admin: 11/02/21 07:00 Dose: 100 mcg Documented by: Lorazepam (Lorazepam 0.5 Mg Tablet) 0.5 mg PO BID PRN PRN Reason: anxiety Last Admin: 11/02/21 06:11 Dose: 0.5 mg Documented by: Losartan Potassium (Losartan 50 Mg Tablet) 100 mg PO DAILY [facility] Last Admin: 11/02/21 11:29 Dose: Not Given Documented by: Magnesium Hydroxide (Magnesium Hydroxide 30 Ml Oral.Susp) 30 ml PO BIDP PRN PRN Reason: Constipation Medroxyprogesterone Acetate (Medroxyprogesterone 10 Mg Tablet) 5 mg PO DAILY [facility] Last Admin: 11/02/21 11:36 Dose: 5 mg Documented by: Metoprolol Tartrate (Metoprolol Tartrate 25 Mg Tablet) 25 mg PO QDAY [facility] Last Admin: 11/02/21 11:29 Dose: Not Given Documented by: Ondansetron HCl (Ondansetron 4 Mg/2 Ml Vial) 4 mg IV Q4HP PRN PRN Reason: Nausea And Vomiting Pantoprazole Sodium (Pantoprazole 40 Mg Tablet) 40 mg PO QDAY [facility] Last Admin: 11/02/21 08:36 Dose: 40 mg Documented by: Paroxetine HCl (Paroxetine 20 Mg Tablet) 40 mg PO DAILY [facility] Last Admin: 11/02/21 08:36 Dose: 40 mg Documented by: Polyethylene Glycol (Polyethylene Glycol 3350 17 Gm Packet) 17 gm PO DAILYP PRN PRN Reason: Constipation Senna (Sennosides 1 Tablet) 2 tab PO [facility] Last Admin: 11/01/21 20:30 Dose: 2 tab Documented by: Sodium Biphosphate/Sodium Phosphate (Fleets Adult Enema) 1 dose GA Q3-4DAYS PRN PRN Reason: Constipation Sodium Chloride (0.9 % Sodium Chloride 10 Ml Syringe) 10 ml IV Q8 [facility] Last Admin: 11/02/21 06:02 Dose: 10 ml Documented by: Temazepam (Temazepam 15 Mg Capsule) 15 mg PO HSP PRN PRN Reason: Insomnia Throat Lozenges (Benzocaine/Menthol 1 Lozenge) 1 lozenge PO PRN PRN PRN Reason: Sore Throat Zolpidem Tartrate (Zolpidem 5 Mg Tablet) 10 mg PO QHS PRN PRN Reason: Sleep Last Admin: 11/01/21 20:30 Dose: 10 mg Documented by: ABG Interpretation Interpretation: normal A/P Assessment and plan (1) Alcoholic intoxication: Status: Acute (2) Urinary tract infection: Status: Acute Narrative A/P Narrative: right total knee and doing well with walking > 100 feet and doing a few stairs D/c with walker and cpm f/u in 2 weeks for wound care Time Spent With Patient Time: Total time spent is greater than 50% in coordination of care (as documented) at patient's floor/unit and/or counseling patient: Total time spent with greater than 50% in coordination of care (as documented) at patient's floor/unit and/or counseling patient:: 15 - 24 minutes
== END 2021-11-02 14:45 | disposition home health service (06) | DRG 470 ==
LOC: SUR 08:14 → MEDSUR 13:25
PROVIDERS: ADMIT Orthopaedic Surgery; ATTEND Orthopaedic Surgery